=== PATIENT | female | born 1970 | race African-American/Black ===

== ENCOUNTER → 2016-11-15 | Outpatient (CLI) | payer OTHER ==
[2016-11-15 12:21] LABS: BASO % 0.9 % (0.0-1.0); EOS # 0.2 K/mm3 (0.0-0.50); EOS % 3.6 % (0.0-3.0); LARGE UNSTAINED CELL # 0.2 K/mm3 (0.0-0.4); LARGE UNSTAINED CELL % 3.9 % (0.0-4.0); LYMPH # 2.5 K/mm3 (1.5-4.5); LYMPH % 49.9 % (24.0-44.0); MEAN CORPUSCULAR HEMOGLOBIN 30.1 pg (27.0-33.0); MEAN CORPUSCULAR HGB CONC 33.1 g/dl (32.0-36.5); MEAN CORPUSCULAR VOLUME 90.7 fl (80.0-96.0); MONO # 0.3 K/mm3 (0.0-0.8); NEUTROPHILS # 1.6 K/mm3 (1.8-7.7); NEUTROPHILS % 34.7 % (36.0-66.0); PLATELET COUNT, AUTOMATED 390 k/mm3 (150-450); RED CELL DISTRIBUTION WIDTH 12.4 % (11.5-14.5); WHITE BLOOD COUNT 4.6 K/mm3 (4.0-10.0)
[2016-11-15 12:31] LABS: ALBUMIN 3.4 GM/DL (3.2-5.2); ALBUMIN/GLOBULIN RATIO 0.94 (1.00-1.93); ALKALINE PHOSPHATASE 87 U/L (45-117); ALT/SGPT 20 U/L (12-78); ANION GAP 8 MEQ/L (8-16); AST/SGOT 20 U/L (15-37); BILIRUBIN,TOTAL 0.2 MG/DL (0.2-1.0); BLOOD UREA NITROGEN 8 MG/DL (7-18); CALCIUM LEVEL 8.7 MG/DL (8.5-10.1); CARBON DIOXIDE LEVEL 29 MEQ/L (21-32); CHLORIDE LEVEL 106 MEQ/L (98-107); CHOLESTEROL LEVEL 122 MG/DL (<200); CREATININE FOR GFR 0.86 MG/DL (0.55-1.02); FREE T4 1.11 NG/DL (0.76-1.46); GLOMERULAR FILTRATION RATE > 60.0 (>58); GLUCOSE, FASTING 88 MG/DL (70-105); POTASSIUM SERUM 3.4 MEQ/L (3.5-5.1); SODIUM LEVEL 143 MEQ/L (136-145); TRIGLYCERIDES LEVEL 65 MG/DL (<150)
== END ==
LOC: M LAB 11:10
PROVIDERS: ATTEND Physician Assistant
DX: I10 Essential (primary) hypertension (principal)

== ENCOUNTER 2016-12-25 22:08 | Emergency (ER) | payer OTHER ==
[~2016-12-25] VITALS: Ht 160 cm; Wt 78.0 kg
[2016-12-25] MEDS ORDERED: AMLO5TAB2 PO (22:20)
[2016-12-25] MEDS ORDERED: IBUPROFEN 600 MG TAB PO ONE (23:15)
[2016-12-25 23:39] VITALS: BP 136/82
== END 2016-12-25 23:42 | disposition home or self-care (01) ==
LOC: M ED 22:56
DX: J03.90 Acute tonsillitis, unspecified (principal)

== ENCOUNTER → 2017-02-14 | Outpatient (REF) | payer OTHER ==
[~2017-02-14] MED LIST: AMLO5TAB2 PO
== END ==
LOC: M LAB REF 17:20
PROVIDERS: ATTEND Family Medicine
DX: Z12.4 Encounter for screening for malignant neoplasm of cervix (principal)

== ENCOUNTER → 2017-07-05 | Outpatient (CLI) | payer OTHER ==
[2017-07-05 09:39] LABS: FOLLICLE STIMULATING HORMONE 10.1 mIU/mL; LUTEINIZING HORMONE 3.1 mIU/mL
== END ==
LOC: M LAB 07:03
PROVIDERS: ATTEND Physician Assistant Medical
DX: L65.9 Nonscarring hair loss, unspecified (principal)

== ENCOUNTER → 2017-07-22 | Outpatient (REF) | payer OTHER | LOC: M LAB REF 16:08 | PROVIDERS: ATTEND Family Medicine | DX: L65.9 Nonscarring hair loss, unspecified (principal) ==

== ENCOUNTER 2017-12-19 07:13 | Emergency (ER) | payer OTHER ==
[2017-12-19] MEDS: KETOROLAC 60 MG/2 ML VIAL (J1885) IM (08:59)
[2017-12-19 09:19] LABS: HEMATOCRIT 35.9 % (36.0-47.0); HEMOGLOBIN 11.8 g/dl (12.0-16.0); MEAN CORPUSCULAR HEMOGLOBIN 29.1 pg (27.0-33.0); MEAN CORPUSCULAR HGB CONC 32.9 g/dl (32.0-36.5); MEAN CORPUSCULAR VOLUME 88.6 fl (80.0-96.0); PLATELET COUNT, AUTOMATED 400 10^3/uL (150-450); RED BLOOD COUNT 4.05 10^6/uL (4.00-5.40); RED CELL DISTRIBUTION WIDTH 12.9 % (11.5-14.5); WHITE BLOOD COUNT 6.1 10^3/uL (4.0-10.0)
[2017-12-19 09:47] LABS: ANION GAP 8 MEQ/L (8-16); BLOOD UREA NITROGEN 7 MG/DL (7-18); C REACTIVE PROTEIN QUANTITATIV < 0.30 MG/DL (0.00-0.30); CALCIUM LEVEL 8.7 MG/DL (8.5-10.1); CARBON DIOXIDE LEVEL 27 MEQ/L (21-32); CHLORIDE LEVEL 107 MEQ/L (98-107); CREATININE FOR GFR 0.87 MG/DL (0.55-1.30); GLOMERULAR FILTRATION RATE > 60.0 (>58); GLUCOSE, FASTING 82 MG/DL (70-100); POTASSIUM SERUM 3.9 MEQ/L (3.5-5.1); SODIUM LEVEL 142 MEQ/L (136-145); URIC ACID 4.1 MG/DL (2.6-6.0)
[2017-12-19 09:56] LABS: ERYTHROCYTE SEDIMENTATION RATE 28 mm/hr (0-20)
== END 2017-12-19 10:19 | disposition home or self-care (01) ==
LOC: M ED 07:13
DX: M77.9 Enthesopathy, unspecified (principal); I10 Essential (primary) hypertension; Z79.899 Other long term (current) drug therapy
CPT/HCPCS: J1885

== ENCOUNTER → 2017-12-19 | Outpatient (CLI) | payer OTHER ==
[2017-12-19 10:22] LABS: TOTAL 25(OH) VITAMIN D 42.8 NG/ML (30.0-100.0)
[2017-12-21 14:29] LABS: FREE T4 1.02 NG/DL (0.76-1.46)
[2017-12-21 14:49] LABS: THYROID PEROXIDASE ANTIBODY < 28.0 U/ML (<60.0)
[2017-12-24 00:08] LABS: CYCLIC CITRULLINATED PEPTIDE 6 units (0-19)
[2017-12-24 00:08] LABS: ANTINUCLEAR ANTIBODIES DIRECT Negative (Negative)
== END ==
LOC: M LAB 06:57
DX: E55.9 Vitamin D deficiency, unspecified (principal); L63.0 Alopecia (capitis) totalis; M79.1 Myalgia; I10 Essential (primary) hypertension
CPT/HCPCS: 84443

== ENCOUNTER → 2018-06-26 | Outpatient (CLI) | payer OTHER ==
[2018-06-26 12:21] LABS: BASO % 0.8 % (0.0-1.0); EOS # 0.1 10^3/uL (0.0-0.50); EOS % 2.2 % (0.0-3.0); HEMATOCRIT 34.7 % (36.0-47.0); HEMOGLOBIN 11.5 g/dl (12.0-15.5); IMMATURE GRANULOCYTE % 0.2 % (0-3.0); LYMPH # 2.5 10^3/uL (1.5-4.5); LYMPH % 48.2 % (24.0-44.0); MEAN CORPUSCULAR HEMOGLOBIN 29.3 pg (27.0-33.0); MEAN CORPUSCULAR HGB CONC 33.1 g/dl (32.0-36.5); MEAN CORPUSCULAR VOLUME 88.3 fl (80.0-96.0); MONO # 0.5 10^3/uL (0.0-0.8); NEUTROPHILS % 39.6 % (36.0-66.0); PLATELET COUNT, AUTOMATED 361 10^3/uL (150-450); RED BLOOD COUNT 3.93 10^6/uL (4.00-5.40); RED CELL DISTRIBUTION WIDTH 12.9 % (11.5-14.5); WHITE BLOOD COUNT 5.1 10^3/uL (4.0-10.0)
[2018-06-26 13:16] LABS: ALBUMIN 3.4 GM/DL (3.2-5.2); ALBUMIN/GLOBULIN RATIO 0.89 (1.00-1.93); ALKALINE PHOSPHATASE 66 U/L (45-117); ALT/SGPT 19 U/L (12-78); ANION GAP 7 MEQ/L (8-16); AST/SGOT 20 U/L (7-37); BILIRUBIN,TOTAL 0.4 MG/DL (0.2-1.0); BLOOD UREA NITROGEN 9 MG/DL (7-18); CALCIUM LEVEL 8.2 MG/DL (8.5-10.1); CARBON DIOXIDE LEVEL 26 MEQ/L (21-32); CHLORIDE LEVEL 109 MEQ/L (98-107); CHOLESTEROL LEVEL 130 MG/DL (<200); CHOLESTEROL RISK RATIO 3.714 (<5); FREE T4 0.98 NG/DL (0.76-1.46); GLOMERULAR FILTRATION RATE > 60.0 (>58); GLUCOSE, FASTING 74 MG/DL (70-100); HDL CHOLESTEROL 35 MG/DL (>40); LDL CHOLESTEROL 85 MG/DL (<100); NON-HDL-C 95 MG/DL; POTASSIUM SERUM 4.1 MEQ/L (3.5-5.1); SODIUM LEVEL 142 MEQ/L (136-145); TOTAL PROTEIN 7.2 GM/DL (6.4-8.2); TRIGLYCERIDES LEVEL 49 MG/DL (<150)
[2018-06-26 13:32] LABS: TOTAL 25(OH) VITAMIN D 22.3 NG/ML (30.0-100.0)
== END ==
LOC: M LAB 11:19
DX: E55.9 Vitamin D deficiency, unspecified (principal)
CPT/HCPCS: 84443

== ENCOUNTER → 2018-06-28 | Outpatient (REF) | payer OTHER | LOC: M LAB REF 17:17 | DX: J02.9 Acute pharyngitis, unspecified (principal) ==

== ENCOUNTER → 2018-07-20 | Outpatient (CLI) | payer OTHER ==
[2018-07-20 17:29] LABS: BASO # 0.1 10^3/uL (0.0-0.2); EOS # 0.2 10^3/uL (0.0-0.50); EOS % 2.4 % (0.0-3.0); HEMATOCRIT 35.2 % (36.0-47.0); HEMOGLOBIN 11.6 g/dl (12.0-15.5); IMMATURE GRANULOCYTE % 0.2 % (0-3.0); LYMPH # 3.1 10^3/uL (1.5-4.5); MEAN CORPUSCULAR HEMOGLOBIN 29.3 pg (27.0-33.0); MEAN CORPUSCULAR VOLUME 88.9 fl (80.0-96.0); MONO # 0.6 10^3/uL (0.0-0.8); NEUTROPHILS # 2.4 10^3/uL (1.8-7.7); NEUTROPHILS % 38.4 % (36.0-66.0); PLATELET COUNT, AUTOMATED 380 10^3/uL (150-450); RED BLOOD COUNT 3.96 10^6/uL (4.00-5.40); WHITE BLOOD COUNT 6.2 10^3/uL (4.0-10.0)
[2018-07-20 17:48] LABS: ANION GAP 7 MEQ/L (8-16); BLOOD UREA NITROGEN 12 MG/DL (7-18); CALCIUM LEVEL 8.8 MG/DL (8.5-10.1); CARBON DIOXIDE LEVEL 28 MEQ/L (21-32); CHLORIDE LEVEL 106 MEQ/L (98-107); CREATININE FOR GFR 0.82 MG/DL (0.55-1.30); GLOMERULAR FILTRATION RATE > 60.0 (>58); GLUCOSE, FASTING 74 MG/DL (70-100); POTASSIUM SERUM 4.4 MEQ/L (3.5-5.1); SODIUM LEVEL 141 MEQ/L (136-145)
== END ==
LOC: M LAB 16:25
DX: Z01.818 Encounter for other preprocedural examination (principal)
CPT/HCPCS: 93005

== ENCOUNTER 2018-07-28 05:57 | Day surgery (SDC) | payer OTHER ==
[2018-07-28 06:41] LABS: CONTROL LINE HCG INT CTR LINE PRESENT; HCG, SERUM QUALITATIVE NEGATIVE (NEGATIVE)
[2018-07-28] MEDS: LR 1,000 ML IV (07:00)
[2018-07-28] MEDS: ROPIvacaine 0.5% 30 ML INJECTION (J2795 PER 1MG) As Ordered (07:11)
[2018-07-28] MEDS: BUPIVACAINE HCL 0.5% 10 ML VIAL As Ordered (07:11)
[2018-07-28] MEDS: NEOSPORIN TOP OINT 15GM As Ordered (07:11)
[2018-07-28] MEDS: LIDOCAINE 2% MDV 20 ML VIAL As Ordered (07:39)
[2018-07-28] MEDS: BUPIVACAINE HCL 0.5% 30 ML VIAL As Ordered (07:39)
[2018-07-28] MEDS ORDERED: KETOROLAC 60 MG/2 ML VIAL (J1885) As Ordered (07:42)
[2018-07-28] MEDS ORDERED: PROPOFOL 200 MG/20 ML VIAL As Ordered (07:42)
[2018-07-28] MEDS ORDERED: fentaNYL 100 MCG/2 ML INJECTION (J3010) As Ordered (07:42)
[2018-07-28] MEDS ORDERED: LIDOCAINE 2% INJ 100 MG/5 ML SDV (FOR ANES.) As Ordered (07:42)
[2018-07-28] MEDS ORDERED: MIDAZOLAM INJ 2 MG/2 ML VIAL (J2250) As Ordered (07:42)
[2018-07-28] MEDS ORDERED: ONDANSETRON 4MG/2ML VIAL (J2405) As Ordered (07:42)
[2018-07-28] MEDS: BACITRACIN PWD 50,000 UNITS VIAL As Ordered (08:41)
[2018-07-28] MEDS: dexameTHASONE 4 MG/ML 1ML VIAL (J1100) As Ordered (08:42)
[2018-07-28] MEDS: NEOSPORIN GU IRRIG 20 ML VIAL As Ordered (08:42)
[2018-07-28 08:49] LABS: SICKLE CELL SCREEN NEGATIVE (NEGATIVE)
[2018-07-28] MEDS: PERCOCET 5MG/325MG TAB PO (09:15)
[2018-07-28] MEDS ORDERED: METOCLOPRAMIDE INJ 10MG/2ML VIAL (J2765) As Ordered (10:50)
[2018-07-28] MEDS: METOCLOPRAMIDE INJ 10MG/2ML VIAL (J2765) IV (10:54)
== END 2018-07-28 12:45 | disposition home or self-care (01) ==
LOC: M SDC 05:57
DX: M20.22 Hallux rigidus, left foot (principal); M25.775 Osteophyte, left foot; I10 Essential (primary) hypertension; Z79.899 Other long term (current) drug therapy; D64.9 Anemia, unspecified
CPT/HCPCS: 28296

== ENCOUNTER → 2018-12-29 | Outpatient (CLI) | payer OTHER ==
[~2018-12-29] MED LIST changes: -AMLO5TAB2 PO; +AMLO5TAB6 PO; +NAPR-50 PO
[2018-12-29 13:22] LABS: BLOOD UREA NITROGEN 12 MG/DL (7-18); CALCIUM LEVEL 8.7 MG/DL (8.5-10.1); CARBON DIOXIDE LEVEL 29 MEQ/L (21-32); CHLORIDE LEVEL 106 MEQ/L (98-107); CREATININE FOR GFR 0.76 MG/DL (0.55-1.30); FERRITIN 26 NG/ML (8-252); GLOMERULAR FILTRATION RATE > 60.0 (>58); GLUCOSE, FASTING 78 MG/DL (70-100); POTASSIUM SERUM 4.5 MEQ/L (3.5-5.1); SODIUM LEVEL 140 MEQ/L (136-145)
[2018-12-29 13:30] LABS: TOTAL 25(OH) VITAMIN D 45.5 NG/ML (30.0-100.0)
== END ==
LOC: M LAB 11:10
PROVIDERS: ATTEND Family Medicine
DX: E55.9 Vitamin D deficiency, unspecified (principal)

== ENCOUNTER → 2019-03-13 | Outpatient (CLI) | payer OTHER ==
[~2019-03-13] MED LIST changes: -NAPR-50 PO; +NAPR-837 PO
[2019-03-13 16:24] LABS: BASO # 0.1 10^3/uL (0.0-0.2); EOS # 0.2 10^3/uL (0.0-0.50); EOS % 3.2 % (0.0-3.0); HEMATOCRIT 36.6 % (36.0-47.0); HEMOGLOBIN 11.7 g/dl (12.0-15.5); LYMPH # 2.4 10^3/uL (1.5-4.5); LYMPH % 40.5 % (24.0-44.0); MEAN CORPUSCULAR HEMOGLOBIN 28.5 pg (27.0-33.0); MEAN CORPUSCULAR VOLUME 89.3 fl (80.0-96.0); MONO # 0.7 10^3/uL (0.0-0.8); MONO % 12.1 % (0.0-5.0); NEUTROPHILS # 2.5 10^3/uL (1.8-7.7); PLATELET COUNT, AUTOMATED 372 10^3/uL (150-450); WHITE BLOOD COUNT 5.9 10^3/uL (4.0-10.0)
== END ==
LOC: M LAB 15:25
PROVIDERS: ATTEND Physician Assistant
DX: Z00.00 Encounter for general adult medical examination without abnormal findings (principal)

== ENCOUNTER 2019-04-02 13:36 | Emergency (ER) | payer OTHER ==
[~2019-04-02] VITALS: Ht 160 cm; Wt 84.6 kg
[2019-04-02] MEDS ORDERED: AMLO10TA5 (13:44)
--- NOTE | 2019-04-02 15:54 | REP ---
LEFT LOWER LEG, AP AND LATERAL: There is no evidence of an acute fracture, dislocation or intrinsic bone disease. IMPRESSION: No fracture or dislocation. Electronically Signed by Hardik Harrison MD 04/03/2019 10:05 A
--- NOTE | 2019-04-02 15:59 | REP ---
LEFT FOOT, FOUR VIEWS: Four views of the left foot performed. No acute fracture or dislocation is seen. Tiny calcification is seen in the distal Achilles tendon. There is evidence of prior surgery of the first metatarsal distal aspect with surgical defect fixed by a metallic screw at that location. There is mild narrowing of the first metatarsal phalangeal joint, as well as the interphalangea joints diffusely. IMPRESSION: No acute fracture or dislocation. Electronically Signed by Hardik Harrison MD 04/03/2019 10:06 A
[2019-04-02] MEDS ORDERED: ACETAMINOPHEN TAB 650MG DOSE (2X325MG) PO ONE (17:45)
[2019-04-02 17:46] VITALS: BP 167/93
== END 2019-04-02 17:57 | disposition home or self-care (01) ==
LOC: M ED 13:36
DX: M79.605 Pain in left leg (principal); I10 Essential (primary) hypertension

== ENCOUNTER → 2019-06-15 | Outpatient (CLI) | payer OTHER ==
[~2019-06-15] MED LIST changes: +AMLO10TA5; +HYDR25TAB
[2019-06-15 12:54] LABS: BASO # 0.1 10^3/uL (0.0-0.2); BASO % 0.8 % (0.0-1.0); EOS # 0.1 10^3/uL (0.0-0.5); EOS % 1.9 % (0.0-3.0); HEMATOCRIT 36.3 % (36.0-47.0); HEMOGLOBIN 11.7 g/dl (12.0-15.5); LYMPH # 2.9 10^3/uL (1.5-5.0); LYMPH % 45.3 % (24.0-44.0); MEAN CORPUSCULAR HEMOGLOBIN 28.9 pg (27.0-33.0); MEAN CORPUSCULAR HGB CONC 32.2 g/dl (32.0-36.5); MEAN CORPUSCULAR VOLUME 89.6 fl (80.0-96.0); MONO # 0.7 10^3/uL (0.0-0.8); MONO % 11.5 % (0.0-5.0); NEUTROPHILS # 2.6 10^3/uL (1.5-8.5); NEUTROPHILS % 40.3 % (36.0-66.0); PLATELET COUNT, AUTOMATED 424 10^3/uL (150-450); RED BLOOD COUNT 4.05 10^6/uL (4.00-5.40); WHITE BLOOD COUNT 6.3 10^3/uL (4.0-10.0)
[2019-06-15 13:24] LABS: ALBUMIN 3.6 GM/DL (3.2-5.2); ALT/SGPT 17 U/L (12-78); BILIRUBIN,TOTAL 0.4 MG/DL (0.2-1.0); BLOOD UREA NITROGEN 7 MG/DL (7-18); CALCIUM LEVEL 9.4 MG/DL (8.5-10.1); CARBON DIOXIDE LEVEL 27 MEQ/L (21-32); CHLORIDE LEVEL 105 MEQ/L (98-107); CREATININE FOR GFR 0.81 MG/DL (0.55-1.30); FERRITIN 21 NG/ML (8-252); GLOMERULAR FILTRATION RATE > 60.0 (>58); GLUCOSE, FASTING 75 MG/DL (70-100); IRON (FE) 99 UG/DL (50-170); PERCENT SATURATION 22.2 % (13.2-45.0); POTASSIUM SERUM 4.4 MEQ/L (3.5-5.1); SODIUM LEVEL 140 MEQ/L (136-145); TOTAL IRON BINDING CAPACITY 445 UG/DL (250-450); TOTAL PROTEIN 7.3 GM/DL (6.4-8.2)
== END ==
LOC: M LAB 11:01
PROVIDERS: ATTEND Family Medicine
DX: D64.9 Anemia, unspecified (principal)

== ENCOUNTER 2019-06-25 06:11 | Day surgery (SDC) | payer OTHER ==
[2019-06-25] VITALS (8 sets, daily range): BP systolic 92–112; BP diastolic 52–62
[~2019-06-25] VITALS: Ht 160 cm; Wt 81.7 kg
[~2019-06-25 06:11] MED LIST changes: -HYDR25TAB; +LIDOCAINE 1% MDV 20ML VIAL SQ PRN; +LR 1,000 ML IV ONE; +ceFAZolin SOD 2 GM in IV 1 EA IV ONE
[2019-06-25 06:38] LABS: HEMATOCRIT 35.7 % (36.0-47.0); HEMOGLOBIN 11.8 g/dl (12.0-15.5); MEAN CORPUSCULAR HEMOGLOBIN 29.9 pg (27.0-33.0); MEAN CORPUSCULAR HGB CONC 33.1 g/dl (32.0-36.5); MEAN CORPUSCULAR VOLUME 90.4 fl (80.0-96.0); PLATELET COUNT, AUTOMATED 373 10^3/uL (150-450); RED BLOOD COUNT 3.95 10^6/uL (4.00-5.40)
[2019-06-25] MEDS ORDERED: ONDANSETRON 4MG/2ML VIAL (J2405) As Ordered ONE ×2 (07:04→11:14)
[2019-06-25] MEDS ORDERED: ROCURONIUM BROMIDE 50 MG/5 ML VIAL As Ordered ONE ×2 (07:04→07:56)
[2019-06-25] MEDS ORDERED: dexameTHASONE 4 MG/ML 1ML VIAL (J1100) As Ordered ONE (07:04)
[2019-06-25] MEDS ORDERED: BUPIVACAINE HCL 0.25% 10 ML VIAL As Ordered ONE ×2 (07:04→08:08)
[2019-06-25] MEDS ORDERED: LIDOCAINE 2% INJ 100 MG/5 ML SDV (FOR ANES.) As Ordered ONE (07:04)
[2019-06-25] MEDS ORDERED: PROPOFOL 200 MG/20 ML VIAL As Ordered ONE (07:04)
[2019-06-25 07:05] LABS: URINE PREG TEST NEGATIVE (NEGATIVE)
[2019-06-25] MEDS ORDERED: LACRILUBE (AKWA TEARS) OPHTH OINT 3.5 GM As Ordered ONE (07:05)
[2019-06-25] MEDS ORDERED: ACETAMINOPHEN 1000MG 100ML IV BTL (OFIRMEV) (J0131 PER 10MG) As Ordered ONE (07:05)
[2019-06-25] MEDS ORDERED: METHYLENE BLUE 0.5% (5MG/ML) 10 ML AMP (PROVAYBLUE)(Q9968 PER 1MG) As Ordered ONE (07:05)
[2019-06-25] MEDS ORDERED: KETOROLAC 60 MG/2 ML VIAL (J1885) As Ordered ONE (07:08)
[2019-06-25] MEDS ORDERED: MIDAZOLAM INJ 2 MG/2 ML VIAL (J2250) As Ordered ONE (07:10)
[2019-06-25] MEDS ORDERED: fentaNYL 250 MCG/5 ML INJECTION (J3010) As Ordered ONE (07:10)
[2019-06-25] MEDS ORDERED: SUGAMMADEX SODIUM 500 MG/5 ML VIAL (BRIDION) As Ordered ONE (07:56)
[2019-06-25] MEDS ORDERED: GLYCOPYRROLATE INJ 0.2 MG/ML 2 ML VIAL As Ordered ONE (08:28)
[2019-06-25] MEDS ORDERED: ONDANSETRON 4MG/2ML VIAL (J2405) IV PRN ×2 (10:30→11:31)
[2019-06-25] MEDS ORDERED: METOCLOPRAMIDE INJ 10MG/2ML VIAL (J2765) IV PRN (10:30)
[2019-06-25] MEDS ORDERED: LR 1,000 ML IV SCH (10:30)
[2019-06-25] MEDS ORDERED: PROMETHAZINE INJ 25 MG/ML VIAL (J2550) IV PRN ×2 (10:30→19:45)
[2019-06-25] MEDS ORDERED: oxyCODONE 5MG TAB PO PRN (10:30)
--- NOTE | 2019-06-25 10:31 | RO ---
DATE OF PROCEDURE: 06/25/2019 PREOPERATIVE DIAGNOSIS: Large symptomatic fibroid uterus. POSTOPERATIVE DIAGNOSIS: Large symptomatic fibroid uterus. PROCEDURE: Robotic-assisted laparoscopy hysterectomy, bilateral salpingectomy, cystoscopy. SURGEON: Dr. Castillo Mondragon MANAGER MARKETING COMMUNICATIONS: Yue Celaya NP ANESTHESIA: General endotracheal. ESTIMATED BLOOD LOSS: 100 mL. URINE OUTPUT: 100 mL. FINDINGS: Large and irregular uterus, multiple fibroids, normal fallopian tubes and ovaries. Normal upper abdomen. OPERATIVE SUMMARY: The patient was taken to the operating room where general endotracheal anesthesia was induced. She was prepped and draped in sterile fashion in the dorsal lithotomy position. A Ortiz catheter was placed. A VCare uterine manipulator was placed. A periumbilical incision made with a scalpel. A Veress needle was placed through this incision while tenting up on the skin of the abdomen. Intra-abdominal location of the Veress needle was assessed using a saline filled syringe. A pneumoperitoneum was created. The Veress needle was removed. An 8 mm trocar using Lio Social was inserted through this incision. Three 8 mm suprapubic ports were placed under direct visualization. The patient was placed in Trendelenburg position. The da Neeraj surgical robot was docked to the ports. Using the fenestrated bipolar instrument and the vessel sealer the broad ligament attachments to the fallopian tubes were coagulated and incised. The utero-ovarian ligaments and round ligaments were coagulated and incised. The anterior and posterior leaves of the broad ligaments were . A bladder flap was created. The uterine vessels were skeletonized and incised. Using monopolar Endoshers, a colpotomy was created at the level of the VCare at the upper vagina. The upper vagina was circumscribed and specimen including the uterus and cervix was large and could not be removed without additional procedures. An Endy Endo Catch bag was used to bag the specimen which was then brought to the vaginal opening. The specimen was morcellated at the vagina and removed in multiple pieces. The vaginal cuff was closed with #1 V-Loc suture in a running fashion. The pelvis was irrigated. Good hemostasis was noted. Cystoscopy was performed using a 70 degrees cystoscope. Bilateral ureteral jets were identified. There was no evidence of injury to the bladder. All instruments were removed. The skin was closed with #4-0 Monocryl subcuticular sutures. Yue Celaya NP, assisted throughout the procedure. She helped position the patient, insert the ports, and she manipulated the uterus throughout the procedure and helped remove the specimen. She subsequently helped close the ports and move the patient.
[2019-06-25] MEDS ORDERED: oxyCODONE 5MG TAB As Ordered ONE (10:56)
[2019-06-25] MEDS ORDERED: fentaNYL 100 MCG/2 ML INJECTION (J3010) As Ordered ONE (10:56)
[2019-06-25] MEDS: fentaNYL 100 MCG/2 ML INJECTION (J3010) IV PRN ×2 (11:00→11:05)
[2019-06-25] MEDS ORDERED: PERCOCET 5MG/325MG TAB PO PRN ×2 (11:31)
[2019-06-25] MEDS ORDERED: MORPHINE 4 MG/ML 1ML VIAL/SYRINGE (J2270) IV PRN (11:31)
[2019-06-25] MEDS: LR 1,000 ML IV SCH ×2 (12:00→16:36)
[2019-06-25] MEDS: DOCUSATE SODIUM 100 MG CAP PO SCH ×2 (13:00→20:13)
[2019-06-25] MEDS ORDERED: HYDR25TAB (17:14)
[2019-06-26] VITALS: BP 101/60
[2019-06-26] MEDS: LR 1,000 ML IV SCH (01:12)
[2019-06-26 04:00] VITALS: BP 106/57
[2019-06-26] MEDS ORDERED: OXYC1TAB23 PO (07:38)
[2019-06-26] MEDS ORDERED: IBUP-1022 PO (07:41)
[2019-06-26 08:00] VITALS: BP 109/59
[2019-06-26] MEDS: DOCUSATE SODIUM 100 MG CAP PO SCH (08:25)
== END 2019-06-26 11:01 | disposition home or self-care (01) ==
LOC: M SDC 06:11 → M PED 11:35 → M SDC 06-26 11:01
PROVIDERS: ATTEND Specialist
DX: D25.9 Leiomyoma of uterus, unspecified (principal); N72 Inflammatory disease of cervix uteri; N92.0 Excessive and frequent menstruation with regular cycle; I10 Essential (primary) hypertension; L63.9 Alopecia areata, unspecified; D64.9 Anemia, unspecified; R06.83 Snoring; G47.33 Obstructive sleep apnea (adult) (pediatric); Z79.899 Other long term (current) drug therapy
CPT/HCPCS: 36415; 58573; 84703; 85027; 86850; 86900; 86901; 88307; 96374; 96375; 96376; J0131; J0690; J1100; J1885; J2250; J2405; J3010

== ENCOUNTER → 2019-11-28 | Outpatient (REF) | payer OTHER ==
[~2019-11-28] MED LIST changes: +HYDR25TAB; +IBUP-1022 PO; -LIDOCAINE 1% MDV 20ML VIAL SQ PRN; -LR 1,000 ML IV ONE; +OXYC1TAB23 PO; -ceFAZolin SOD 2 GM in IV 1 EA IV ONE
== END ==
LOC: M SFHCLERA 17:44
PROVIDERS: ATTEND Nurse Practitioner Family
DX: R68.89 Other general symptoms and signs (principal)

== ENCOUNTER 2019-12-10 10:52 | Emergency (ER) | payer OTHER ==
[~2019-12-10] VITALS: Ht 162.6 cm; Wt 79.6 kg
[2019-12-10 10:53] VITALS: BP 129/78
[2019-12-10] MEDS ORDERED: CYCL10TA PO (11:36)
[2019-12-10] MEDS ORDERED: MEDR4PAK PO (11:36)
== END 2019-12-10 11:43 | disposition home or self-care (01) ==
LOC: M ED 10:52
DX: M54.41 Lumbago with sciatica, right side (principal); S39.012A Strain of muscle, fascia and tendon of lower back, initial encounter; X58.XXXA Exposure to other specified factors, initial encounter; Y92.099 Unspecified place in other non-institutional residence as the place of occurrence of the external cause; Y93.89 Activity, other specified; Y99.9 Unspecified external cause status; I10 Essential (primary) hypertension; Z79.899 Other long term (current) drug therapy; Z91.040 Latex allergy status

== ENCOUNTER → 2020-01-11 | Outpatient (CLI) | payer OTHER ==
[~2020-01-11] MED LIST changes: +CYCL-707 PO; +MEDR4PAK PO
[2020-01-11 07:54] LABS: BASO # 0.1 10^3/uL (0.0-0.2); BASO % 1.5 % (0.0-1.0); EOS # 0.2 10^3/uL (0.0-0.5); EOS % 3.6 % (0.0-3.0); HEMATOCRIT 37.4 % (36.0-47.0); HEMOGLOBIN 12.3 g/dl (12.0-15.5); LYMPH # 2.3 10^3/uL (1.5-5.0); LYMPH % 49.4 % (24.0-44.0); MEAN CORPUSCULAR HEMOGLOBIN 30.1 pg (27.0-33.0); MEAN CORPUSCULAR HGB CONC 32.9 g/dl (32.0-36.5); MEAN CORPUSCULAR VOLUME 91.4 fl (80.0-96.0); MONO # 0.4 10^3/uL (0.0-0.8); MONO % 8.6 % (0.0-5.0); NEUTROPHILS # 1.7 10^3/uL (1.5-8.5); NEUTROPHILS % 36.7 % (36.0-66.0); PLATELET COUNT, AUTOMATED 456 10^3/uL (150-450); RED BLOOD COUNT 4.09 10^6/uL (4.00-5.40); WHITE BLOOD COUNT 4.7 10^3/uL (4.0-10.0)
[2020-01-11 08:20] LABS: ALBUMIN 3.5 GM/DL (3.2-5.2); ALT/SGPT 17 U/L (12-78); BILIRUBIN,TOTAL 0.4 MG/DL (0.2-1.0); BLOOD UREA NITROGEN 12 MG/DL (7-18); CALCIUM LEVEL 8.9 MG/DL (8.5-10.1); CARBON DIOXIDE LEVEL 28 MEQ/L (21-32); CHLORIDE LEVEL 106 MEQ/L (98-107); CHOLESTEROL LEVEL 146 MG/DL (<200); CHOLESTEROL RISK RATIO 4.055 (<5); CREATININE FOR GFR 0.86 MG/DL (0.55-1.30); FERRITIN 46 NG/ML (8-252); GLOMERULAR FILTRATION RATE > 60.0 (>58); GLUCOSE, FASTING 98 MG/DL (70-100); HDL CHOLESTEROL 36 MG/DL (>40); IRON (FE) 48 UG/DL (50-170); LDL CHOLESTEROL 102 MG/DL (<100); NON-HDL-C 110 MG/DL; PERCENT SATURATION 10.9 % (13.2-45.0); POTASSIUM SERUM 4.2 MEQ/L (3.5-5.1); SODIUM LEVEL 141 MEQ/L (136-145); TOTAL IRON BINDING CAPACITY 439 UG/DL (250-450); TOTAL PROTEIN 7.8 GM/DL (6.4-8.2); TRIGLYCERIDES LEVEL 42 MG/DL (<150)
[2020-01-11 08:29] LABS: TOTAL 25(OH) VITAMIN D 28.5 NG/ML (30.0-100.0)
== END ==
LOC: M LAB 07:24
PROVIDERS: ATTEND Family Medicine
DX: I10 Essential (primary) hypertension (principal)

== ENCOUNTER → 2020-07-16 | Outpatient (CLI) | payer OTHER ==
[~2020-07-16] MED LIST changes: -AMLO10TA5; +AMLO1TAB24 PO; +AMLO1TAB25; -AMLO5TAB6 PO
[2020-07-16 16:13] LABS: BASO # 0.1 10^3/uL (0.0-0.2); BASO % 0.7 % (0.0-1.0); EOS # 0.2 10^3/uL (0.0-0.5); EOS % 3.3 % (0.0-3.0); HEMATOCRIT 38.4 % (36.0-47.0); HEMOGLOBIN 12.4 g/dl (12.0-15.5); LYMPH % 41.3 % (24.0-44.0); MEAN CORPUSCULAR HGB CONC 32.3 g/dl (32.0-36.5); MEAN CORPUSCULAR VOLUME 89.7 fl (80.0-96.0); MONO # 0.6 10^3/uL (0.0-0.8); MONO % 8.5 % (0.0-5.0); NEUTROPHILS # 3.4 10^3/uL (1.5-8.5); NEUTROPHILS % 45.9 % (36.0-66.0); PLATELET COUNT, AUTOMATED 376 10^3/uL (150-450); RED BLOOD COUNT 4.28 10^6/uL (4.00-5.40); WHITE BLOOD COUNT 7.3 10^3/uL (4.0-10.0)
[2020-07-16 16:28] LABS: ALBUMIN 3.7 GM/DL (3.2-5.2); ALT/SGPT 25 U/L (12-78); BILIRUBIN,TOTAL 0.6 MG/DL (0.2-1.0); BLOOD UREA NITROGEN 13 MG/DL (7-18); CALCIUM LEVEL 9.9 MG/DL (8.5-10.1); CARBON DIOXIDE LEVEL 31 MEQ/L (21-32); CHLORIDE LEVEL 101 MEQ/L (98-107); CHOLESTEROL LEVEL 171 MG/DL (<200); CHOLESTEROL RISK RATIO 3.886 (<5); CREATININE FOR GFR 0.86 MG/DL (0.55-1.30); GLOMERULAR FILTRATION RATE > 60.0 (>51); GLUCOSE, FASTING 81 MG/DL (70-100); HDL CHOLESTEROL 44 MG/DL (>40); LDL CHOLESTEROL 113 MG/DL (<100); NON-HDL-C 127 MG/DL; POTASSIUM SERUM 3.7 MEQ/L (3.5-5.1); SODIUM LEVEL 136 MEQ/L (136-145); TOTAL PROTEIN 7.8 GM/DL (6.4-8.2); TRIGLYCERIDES LEVEL 71 MG/DL (<150)
== END ==
LOC: M LAB 15:00
PROVIDERS: ATTEND Physician Assistant
DX: D64.9 Anemia, unspecified (principal); I10 Essential (primary) hypertension

== ENCOUNTER → 2020-09-18 | Outpatient (REF) | payer OTHER | LOC: M LAB REF 15:02 | PROVIDERS: ATTEND Physician Assistant | DX: Z11.59 Encounter for screening for other viral diseases (principal) ==

== ENCOUNTER → 2020-10-21 | Outpatient (CLI) | payer OTHER ==
[~2020-10-21] MED LIST changes: -AMLO1TAB25; +AMLO1TAB25 PO; +HYDR-3490 PO; -HYDR25TAB; +IRON27TA2 PO
[2020-10-21 07:38] LABS: BLOOD UREA NITROGEN 11 MG/DL (7-18); CALCIUM LEVEL 9.2 MG/DL (8.5-10.1); CARBON DIOXIDE LEVEL 32 MEQ/L (21-32); CHLORIDE LEVEL 104 MEQ/L (98-107); GLOMERULAR FILTRATION RATE > 60.0 (>51); GLUCOSE, FASTING 98 MG/DL (70-100); SODIUM LEVEL 139 MEQ/L (136-145)
[2020-10-21 13:13] LABS: TOTAL 25(OH) VITAMIN D 25.3 NG/ML (30.0-100.0)
== END ==
LOC: M LAB 06:36
PROVIDERS: ATTEND Physician Assistant
DX: E55.9 Vitamin D deficiency, unspecified (principal); I10 Essential (primary) hypertension

== ENCOUNTER → 2020-11-01 | Outpatient (CLI) | payer OTHER | LOC: M LABSMTC 09:49 | PROVIDERS: ATTEND Anesthesiology | DX: Z01.812 Encounter for preprocedural laboratory examination (principal); Z20.822 Contact with and (suspected) exposure to COVID-19 ==

== ENCOUNTER 2020-11-06 07:45 | Day surgery (SDC) | payer OTHER ==
[~2020-11-06] VITALS: Ht 160 cm; Wt 88.0 kg
[~2020-11-06 07:45] MED LIST changes: +LIDOCAINE 2% 100MG/5ML SDV (FOR ANES.) As Ordered ONE; +NS 1,000 ML IV ONE; +propofoL 200 MG/20 ML VIAL As Ordered ONE
--- OUTSIDE RECORDS SUMMARY | 2020-11-06 07:49 | CCD | Continuity of Care Document ---
Author Author Rut SAUCEDA MD Organization Unknown Address [address] [address] Phone [phone] Care Team Providers Care Dipper Operator Name Role Phone Jg Morales AUTM [phone] Adilia Kaur D.O. AUTM AUTM Unavailable Jg Morales AUTM [phone] Problems Active Problems Provider Date Essential hypertension Ester Huertas DO Onset: 01/25/2019 Social History Type Date Description Comments Sex Unknown ETOH Use 1-2 A Month Recreational Drug Use Denies Drug Use Tobacco Use Start: Unknown Denies Smoking Exercise Type/Frequency Does not exercise Allergies, Adverse Reactions, Alerts Active Allergies Reaction Severity Comments Date Latex Itching, rash 01/24/2019 Medications Active Medications SIG Qnty Indications Ordering Provide r Date Amlodipine Besylate 10mg Tablets 1 qd Unknown Hydrochlorothiazide 25mg Tablets one daily Unknown Iron (Ferrous Sulfate) 142(45Fe) mg Tablets ER 1 tab by mouth once a day . Unknown Immunizations Description No Information Available Vital Signs Date Vital Result Comment 10/13/2020 8:29am BP Systolic 135 mmHg BP Diastolic 87 mmHg Heart Rate 73 /min Body Temperature 98.1 F Height 63.5 inches 5'3.50" Weight 193.00 lb BMI (Body Mass Index) 33.6 kg/m2 [place] Body Weight 115 lb Weight 87.545 kg BSA (Body Surface Area) 1.92 m2 02/13/2020 2:51pm BP Systolic 134 mmHg BP Diastolic 82 mmHg Height 63.5 inches 5'3.50" Weight 184.25 lb BMI (Body Mass Index) 32.1 kg/m2 [place] Body Weight 115 lb Weight 83.576 kg BSA (Body Surface Area) 1.88 m2 Results Description No Information Available Procedures Description No Information Available Medical Devices Description No Information Available Encounters Description No Information Available Assessments Description No Information Available Plan of Treatment 02/13/2020 - Ester Huertas DO* 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 * Z48.89 Encounter for other specified surgical aftercare Functional Status Functional Condition Comment Date Status Independent with all ADL's Activ e Mental Status Description No Information Available Referrals Refer to Reason for Referral Status Appt Date Jaiden Sauceda JR, MD COLONOSCOPY Scheduled [address] [place] [phone]
--- OUTSIDE RECORDS SUMMARY | 2020-11-06 07:49 | CCD | Continuity of Care Document ---
Author Author Rut SHAFFER Organization Unknown Address [address] [facility] [address] [place] [address] Phone [phone] Care Team Providers Care Stock Blender Name Role Phone Adilia Kaur D.O. AUTM [phone] Jaiden Sauceda M.D. AUTM [phone] Problems Active Problems Provider Date Essential hypertension ART K[facility] Onset: 6 Alopecia [facility] Kaufman Onset: 09/17/2016 Vitamin D deficiency [facility]man Onset: 07/05/2018 Anemia [facility] Onset: 07/05/2018 Obstructive sleep apnea syndrome Adilia Kaur D.O. Onset: 10/02/2018 Social History Type Date Description Comments Sex Unknown ETOH Use Denies alcohol use Tobacco Use Start: Unknown Patient has never smoked Recreational Drug Use Denies Drug Use Smoking Status Reviewed: 07/22/20 Patient has never smoked Exercise Type/Frequency Does not exercise Sun Exposure Uses sunscreen Seat Belt/Car Seat Always uses seat belt Allergies, Adverse Reactions, Alerts Description No Known Drug Allergies Medications Active Medications SIG Qnty Indications Ordering Provide r Date Shingrix 50mcg/0.5ML Suspension Re c inject subcutaneous times one 1units Abhi Briceño 09/25/2020 Hydrochlorothiazide 25mg Tablets 1 by mouth every day 90tabs I10 Maxwell BriceñoOAlmita 06/18 Amlodipine Besylate 10mg Tablets 1 by mouth every day 90tabs I10 Adilia Kaur D.O. 03/14 Iron (Ferrous Sulfate) 325(65Fe) mg Tablets Unknown Medications Administered in Office Medication SIG Qnty Indications Ordering Provider Date Immunization Administration Single Or Co mbination Injection [facility] Injection Methylprednisolone Acetate 80 MG Injection [facility] 017 Injection Ceftriaxone Sodium Per 250 MG (Rocephin) Injection ART [facility] 12/29/2016 Therapeutic, Prophylactic Or Diagnostic Injection Subq/Im Injection ART [facility]air 12/29/2016 Immunizations CPT Code Status Date Vaccine Lot # [id number] Given 07/22/2020 Influenza Virus Vaccine, Quadrivalent, Split, Preservative Free [id number] Given 06/18/2019 Influenza Virus Vaccine, Quadrivalent, Split, Preservative Free [id number] Vital Signs Date Vital Result Comment 07/22/2020 2:57pm BP Systolic 120 mmHg BP Diastolic 80 mmHg Height 63.7 inches 5'3.70" Weight 185.50 lb BMI (Body Mass Index) 32.1 kg/m2 Heart Rate 60 /min Respiratory Rate 16 /min Body Temperature 97.6 F O2 % BldC Oximetry 100 % [place] Body Weight 115 lb 04/21/2020 2:54pm BP Systolic 124 mmHg BP Diastolic 82 mmHg Height 63.7 inches 5'3.70" Weight 182.00 lb BMI (Body Mass Index) 31.5 kg/m2 Respiratory Rate 18 /min Body Temperature 98.6 F O2 % BldC Oximetry 99 % [place] Body Weight 115 lb Results Test Acquired Date Facility Test Result H/L Range Note Basic Metabolic Profile 10/21/2020 [facility] Outpatient T willard (Registration) [address] [place] [address] [phone] Glucose, Fasting 98 mg/dL Normal 70-100 Blood Urea Nitrogen 11 mg/dL Normal 7-18 Creatinine For GFR 0.90 mg/dL Normal 0.55-1.30 Glomerular Filtration Rate > 60.0 Normal >51 1 Sodium Level 139 mEq/L Normal 136-145 Potassium Serum 4.0 mEq/L Normal 3.5-5.1 Chloride Level 104 mEq/L Normal 98-107 Carbon Dioxide Level 32 mEq/L Normal 21-32 Anion Gap 3 mEq/L Low 8-16 Calcium Level 9.2 mg/dL Normal 8.5-10.1 Laboratory test finding 10/21/2020 [facility] Outpatient T esting (Registration) [address] [place] [address] [phone] Total 25(Oh) Vitamin D 25.3 NG/ML Low 30.0-100. 0 CBC With Differential 07/16/2020 [facility] Outpatient Vanna ting (Registration) [address] [place] [address] [phone] White Blood Count 7.3 10 Normal 4.0-10.0 Red Blood Count 4.28 10 Normal 4.00-5.40 Hemoglobin 12.4 g/dL Normal 12.0-15.5 Hematocrit 38.4 % Normal 36.0-47.0 Mean Corpuscular Volume 89.7 fl Normal 80.0-96.0 Mean Corpuscular Hemoglobin 29.0 pg Normal 27.0-33.0 Mean Corpuscular HGB Conc 32.3 g/dL Normal 32.0-36.5 Red Cell Distribution Width 12.8 % Normal 11.5-14.5 Platelet Count, Automated 376 10 Normal 150-450 Neutrophils % 45.9 % Normal 36.0-66.0 Lymph % 41.3 % Normal 24.0-44.0 [place] % 8.5 % High 0.0-5.0 Eos % 3.3 % High 0.0-3.0 Baso % 0.7 % Normal 0.0-1.0 Immature Granulocyte % 0.3 % Normal 0-3.0 Nucleated Red Blood Cell % 0.0 % Normal 0-0 Neutrophils # 3.4 10 Normal 1.5-8.5 Lymph # 3.0 10 Normal 1.5-5.0 [place] # 0.6 10 Normal 0.0-0.8 Eos # 0.2 10 Normal 0.0-0.5 Baso # 0.1 10 Normal 0.0-0.2 Comprehensive Metabolic Profil 07/16/2020 [facility] Outpa tient Testing (Registration) [address] [place] [address] [phone] Glucose, Fasting 81 mg/dL Normal 70-100 Blood Urea Nitrogen 13 mg/dL Normal 7-18 Creatinine For GFR 0.86 mg/dL Normal 0.55-1.30 Glomerular Filtration Rate > 60.0 Normal >51 2 Sodium Level 136 mEq/L Normal 136-145 Potassium Serum 3.7 mEq/L Normal 3.5-5.1 Chloride Level 101 mEq/L Normal 98-107 Carbon Dioxide Level 31 mEq/L Normal 21-32 Anion Gap 4 mEq/L Low 8-16 Calcium Level 9.9 mg/dL Normal 8.5-10.1 Ast/Sgot 22 U/L Normal 7-37 Alt/SGPT 25 U/L Normal 12-78 Alkaline Phosphatase 73 U/L Normal 45-117 Bilirubin,Total 0.6 mg/dL Normal 0.2-1.0 Total Protein 7.8 GM/DL Normal 6.4-8.2 Albumin 3.7 GM/DL Normal 3.2-5.2 Albumin/Globulin Ratio 0.9 Low 1.2-2.2 Lipid Panel 07/16/2020 [facility] Outpatient Testi ng (Registration) [address] [place], [place] [id number] [phone] Triglycerides Level 71 mg/dL Normal <150 Cholesterol Level 171 mg/dL Normal <200 HDL Cholesterol 44 mg/dL Normal >40 LDL Cholesterol 113 mg/dL High <100 Non-HDL-C 127 mg/dL Normal Cholesterol Risk Ratio 3.886 Normal <5 FT4&TSH Panel 07/16/2020 [facility] Outpatient Testi ng (Registration) [address] [place], [place] [id number] [phone] Thyroid Stimulating Hormone 3.130 uIU/ML Normal 0. 358-3.740 Free T4 0.90 ng/dL Normal 0.76-1.46 1 Units are mL/min/1.73 m2 Chronic Kidney Disease Staging per NKF: Stage I & II GFR >=60 Normal to Mildly Decreased Stage III GFR 30-59 Moderately Decreased Stage IV GFR 15-29 Severely Decreased Stage V GFR <15 Very Little GFR Left ESRD GFR <15 on SOLID WASTE COLLECTOR 2 Units are mL/min/1.73 m2 Chronic Kidney Disease Staging per NKF: Stage I & II GFR >=60 Normal to Mildly Decreased Stage III GFR 30-59 Moderately Decreased Stage IV GFR 15-29 Severely Decreased Stage V GFR <15 Very Little GFR Left ESRD GFR <15 on SOLID WASTE COLLECTOR Procedures Description No Information Available Medical Devices Description No Information Available Encounters Type Date Location Provider Dx Diagnosis Office Visit 07/22/2020 3:00p [facility] ART Kaufman I10 Essential (primary) hyperten juliana E55.9 Vitamin D deficiency, unspec ified D64.9 Anemia, unspecified 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 Encounter for immunization Office Visit 04/21/2020 3:00p [facility] ART Kaufman I10 Essential (primary) hyperten juliana E55.9 Vitamin D deficiency, unspec ified D64.9 Anemia, unspecified Z12.11 Encounter for screening for malignant neoplasm of colon Z12.31 Encntr screen mammogram for malignant neoplasm of breast Assessments Date Code Description Provider 07/22/2020 I10 Essential hypertension ART Kaufman 07/22/2020 E55.9 Vitamin D deficiency, unspecifie d [facility] 07/22/2020 D64.9 Anemia, unspecified ART Brand 07/22/2020 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 ART [facility] 07/22/2020 Z23 Encounter for immunization ART [facility] 04/21/2020 I10 Essential hypertension ART Kaufman 04/21/2020 E55.9 Vitamin D deficiency, unspecifie d [facility] 04/21/2020 D64.9 Anemia, unspecified ART Brand 04/21/2020 Z12.11 Encounter for screening for eva gnant neoplasm of colon ART [facility] 04/21/2020 Z12.31 Encounter for screen ing mammogram for malignant neoplasm of breast ART [facility] Plan of Treatment Future Appointment(s):* 10/22/2020 3:00 pm - ART Kaufman at [facility] Functional Status Description No Information Available Mental Status Description No Information Available Referrals Refer to Dr Reason for Referral Status Appt Date Jaiden Sauceda M.D. 50 year old female in need o f initial screening colonoscopy. Asymptomatic, but with positive family history. Please eval and treat. Patient Notified 10/14/[address] [place] [address] [phone]
--- OUTSIDE RECORDS SUMMARY | 2020-11-06 07:49 | CCD ---
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 Name Role Phone Andrew, Jg PA Unavailable Unavailable Andrew, Jg PA Unavailable Unavailable Andrew, Jg PA Unavailable Unavailable Andrew, Jg PA Unavailable Unavailable Andrew, Jg PA Unavailable Unavailable Andrew, Jg PA Unavailable Unavailable Andrew, Jg PA Unavailable Unavailable Andrew, Jg PA Unavailable Unavailable Andrew, Jg PA Unavailable Unavailable Andrew, Jg PA Unavailable Unavailable Andrew, Jg PA Unavailable Unavailable Andrew, Jg PA Unavailable Unavailable Andrew, Jg PA Unavailable Unavailable Andrew, Jg PA Unavailable Unavailable Andrew, Jg PA Unavailable Unavailable Andrew, Jg PA Unavailable Unavailable Andrew, Jg PA Unavailable Unavailable Andrew, Jg PA Unavailable Unavailable Andrew, Jg PA Unavailable Unavailable Andrew, Jg PA Unavailable Unavailable Andrew, Jg PA Unavailable Unavailable Andrew, Jg PA Unavailable Unavailable Andrew, Jg PA Unavailable Unavailable Andrew, Jg PA Unavailable Unavailable Andrew, Jg PA Unavailable Unavailable Andrew, Jg PA Unavailable Unavailable Andrew, Jg PA Unavailable Unavailable Andrew, Jg PA Unavailable Unavailable Andrew, Jg PA Unavailable Unavailable Andrew, Jg PA Unavailable Unavailable Andrew, Jg PA Unavailable Unavailable Andrew, Jg PA Unavailable Unavailable Andrew, Jg PA Unavailable Unavailable Andrew, Jg PA Unavailable Unavailable Andrew, Jg PA Unavailable Unavailable Andrew, Jg PA Unavailable Unavailable Andrew, Jg PA Unavailable Unavailable Andrew, Jg PA Unavailable Unavailable Andrew, Jg PA Unavailable Unavailable Andrew, Jg PA Unavailable Unavailable Andrew, Jg PA Unavailable Unavailable Andrew, Jg PA Unavailable Unavailable Andrew, Jg PA Unavailable Unavailable Andrew, Jg PA Unavailable Unavailable Andrew, Jg PA Unavailable Unavailable Andrew, Jg PA Unavailable Unavailable Andrew, Jg PA Unavailable Unavailable Andrew, Jg PA Unavailable Unavailable Andrew, Jg PA Unavailable Unavailable JAROD-MERI, JESSIE DO Unavailable Unavailable JAROD-MERI, JESSIE DO Unavailable Unavailable JAROD-MERI, JESSIE DO Unavailable Unavailable JAROD-MERI, JESSIE DO Unavailable Unavailable JAROD-MERI, JESSIE DO Unavailable Unavailable JAROD-MERI, JESSIE DO Unavailable Unavailable JAROD-MERI, JESSIE DO Unavailable Unavailable JAROD-MERI, JESSIE DO Unavailable Unavailable JAROD-MERI, JESSIE DO Unavailable Unavailable JAROD-MERI, JESSIE DO Unavailable Unavailable JAROD-MERI, JESSIE DO Unavailable Unavailable JAROD-MERI, JESSIE DO Unavailable Unavailable JAROD-MERI, JESSIE DO Unavailable Unavailable JAROD-MERI, JESSIE DO Unavailable Unavailable JAROD-MERI, JESSIE DO Unavailable Unavailable JAROD-MERI, JESSIE DO Unavailable Unavailable JAROD-MERI, JESSIE DO Unavailable Unavailable JAROD-MERI, JESSIE DO Unavailable Unavailable JAROD-MERI, JESSIE DO Unavailable Unavailable JAROD-MERI, JESSIE DO Unavailable Unavailable JAROD-MERI, JESSIE DO Unavailable Unavailable JAROD-MERI, JESSIE DO Unavailable Unavailable JAROD-MERI, JESSEI DO Unavailable Unavailable JAROD-MERI, JESSIE DO Unavailable Unavailable JAROD-MERI, JESSIE DO Unavailable Unavailable JAROD-MERI, JESSIE DO Unavailable Unavailable JAROD-MERI, JESSIE DO Unavailable Unavailable JAROD-MERI, JESSIE DO Unavailable Unavailable JAROD-MERI, JESSIE DO Unavailable Unavailable JAROD-MERI, JESSIE DO Unavailable Unavailable JAROD-MERI, JESSIE DO Unavailable Unavailable JAROD-MERI, JESSIE DO Unavailable Unavailable JAROD-MERI, JESSIE DO Unavailable Unavailable JAROD-MERI, JESSIE DO Unavailable Unavailable JAROD-MERI, JESSIE DO Unavailable Unavailable JAROD-MERI, JESSIE DO Unavailable Unavailable JAROD-MERI, JESSIE DO Unavailable Unavailable JAROD-MERI, JESSIE DO Unavailable Unavailable JAROD-MERI, JESSIE DO Unavailable Unavailable JAROD-MERI, JESSIE DO Unavailable Unavailable JAROD-MERI, JESSIE DO Unavailable Unavailable JAROD-MERI, JESSIE DO Unavailable Unavailable JAROD-MERI, JESSIE DO Unavailable Unavailable JAROD-MERI, JESSIE DO Unavailable Unavailable JAROD-MERI, JESSIE DO Unavailable Unavailable JAROD-MERI, JESSIE DO Unavailable Unavailable JAROD-MERI, JESSIE DO Unavailable Unavailable JAROD-MERI, JESSIE DO Unavailable Unavailable JAROD-MERI, JESSIE DO Unavailable Unavailable JAROD-MERI, JESSIE DO Unavailable Unavailable JAROD-MERI, JESSIE DO Unavailable Unavailable JAROD-MERI, JESSIE DO Unavailable Unavailable JAROD-MERI, JESSIE DO Unavailable Unavailable JAROD-MERI, JESSIE DO Unavailable Unavailable JAROD-MERI, JESSIE DO Unavailable Unavailable JAROD-MERI, JESSIE DO Unavailable Unavailable JAROD-MERI, JESSIE DO Unavailable Unavailable JAROD-MERI, JESSIE DO Unavailable Unavailable JAROD-MERI, JESSIE DO Unavailable Unavailable JAROD-MERI, JESSIE DO Unavailable Unavailable JAROD-MERI, JESSIE DO Unavailable Unavailable JAROD-MERI, JESSIE DO Unavailable Unavailable JAROD-MERI, JESSIE DO Unavailable Unavailable JAROD-MERI, JESSIE DO Unavailable Unavailable JAROD-MERI, JESSIE DO Unavailable Unavailable JAROD-MERI, JESSIE DO Unavailable Unavailable JAROD-MERI, JESSIE DO Unavailable Unavailable JAROD-MERI, JESSIE DO Unavailable Unavailable JAROD-MERI, JESSIE DO Unavailable Unavailable JAROD-MERI, JESSIE DO Unavailable Unavailable JAROD-MERI, JESSIE DO Unavailable Unavailable JAROD-MERI, JESSIE DO Unavailable Unavailable JAROD-MERI, JESSIE DO Unavailable Unavailable JAROD-MERI, JESSIE DO Unavailable Unavailable JAROD-MERI, JESSIE DO Unavailable Unavailable JAROD-MERI, JESSIE DO Unavailable Unavailable JAROD-MERI, JESSIE DO Unavailable Unavailable JAROD-MERI, JESSIE DO Unavailable Unavailable JAROD-MERI, JESSIE DO Unavailable Unavailable JAROD-MERI, JESSIE DO Unavailable Unavailable JAROD-MERI, JESSIE DO Unavailable Unavailable JAROD-MERI, JESSIE DO Unavailable Unavailable O'lino, A Alex PA Unavailable Unavailable O'lino, A Alex PA Unavailable Unavailable O'lino, A Alex PA Unavailable Unavailable O'lino, A Alex PA Unavailable Unavailable O'ilno, A Alex PA Unavailable Unavailable O'lino, A Alex PA Unavailable Unavailable O'lino, A Alex PA Unavailable Unavailable O'lino, A Alex PA Unavailable Unavailable O'lino, A Alex PA Unavailable Unavailable O'lino, A Alex PA Unavailable Unavailable O'lino, A Alex PA Unavailable Unavailable O'lino, A Alex PA Unavailable Unavailable O'lino, A Alex PA Unavailable Unavailable O'lino, A Alex PA Unavailable Unavailable O'lino, A Alex PA Unavailable Unavailable O'lino, A Alex PA Unavailable Unavailable O'lino, A Alex PA Unavailable Unavailable O'lino, A Alex PA Unavailable Unavailable O'lino, A Alex PA Unavailable Unavailable O'lino, A Alex PA Unavailable Unavailable O'lino, A Alex PA Unavailable Unavailable O'lino, A Alex PA Unavailable Unavailable O'lino, A Alex PA Unavailable Unavailable O'lino, A Alex PA Unavailable Unavailable O'lino, A Alex PA Unavailable Unavailable O'lino, A Alex PA Unavailable Unavailable O'lino, A Alex PA Unavailable Unavailable O'lino, A Alex PA Unavailable Unavailable O'lino, A Alex PA Unavailable Unavailable O'lino, A Alex PA Unavailable Unavailable O'lino, A Alex PA Unavailable Unavailable O'lino, A Alex PA Unavailable Unavailable Re-disclosure Warning The records that you are about to access may contain information from federally-assisted alcohol or drug abuse programs. If such information is present, then the following federally mandated warning applies: This information has been disclosed to you from records protected by federal confidentiality rules (42 CFR part 2). The federal rules prohibit you from making any further disclosure of this information unless further disclosure is expressly permitted by the written consent of the person to whom it pertains or as otherwise permitted by 42 CFR part 2. A general authorization for the release of medical or other information is NOT sufficient for this purpose. The Federal rules restrict any use of the information to criminally investigate or prosecute any alcohol or drug abuse patient.The records that you are about to access may contain highly sensitive health information, the redisclosure of which is protected by Article 27-F of the [facility] Public Health law. If you continue you may have access to information: Regarding HIV / AIDS; Provided by facilities licensed or operated by the [facility] Office of Mental Health; or Provided by the [facility] Office for People With Developmental Disabilities. If such information is present, then the following [facility] mandated warning applies: This information has been disclosed to you from confidential records which are protected by state law. State law prohibits you from making any further disclosure of this information without the specific written consent of the person to whom it pertains, or as otherwise permitted by law. Any unauthorized further disclosure in violation of state law may result in a fine or prison sentence or both. A general authorization for the release of medical or other information is NOT sufficient authorization for further disc losure. Allergies and Adverse Reactions Type Description Substance Reaction Status Data Source(s ) latex latex latex rash Active eCW1 ([facility]) Family History Family Member Name Family Member Gender Family Member Status Date o f Status Description Data Source(s) Unknown Unknown Problem [facility] ([facility]) Unknown Unknown Problem [facility] ([facility]) father Unknown Female Problem [facility] ([facility]) Encounters Encounter Providers Location Date Indications Data Source(s ) Outpatient Attender: Jg CORDOVA [facility] 07/22/2020 03:00:00 PM EDT [facility] ([facility]) Outpatient Attender: Jg CORDOVA [facility] 04/21/2020 03:00:00 PM EDT [facility] ([facility]) Outpatient Attender: Alex CORDOVA [facility] 01/17/2020 08:30:00 AM EDT [facility] ([facility]) [address] [id number] 11/28/2019 12:00:00 AM EST eCW1 ([facility]) Outpatient Attender: Alex CORDOVA [facility] 11/08/2019 01:00:00 PM EST [facility] ([facility]) Outpatient Attender: JESSIE HILL DO [facility] 09/17/2019 02:00:00 PM EST MEDENT ([facility]) Immunizations Vaccine Date Status Description Data Source(s) New in 2011. IIV4 07/22/2020 03:22:00 PM EDT completed MED[facility] ([facility]) Medications Medication Brand Name Start Date Product Form Dose Route Admi nistrative Instructions Pharmacy Instructions Status Indications Reaction Description Data Source(s) Betamethasone Dipropionate/Minoxidil 10/22/2020 12:00:00 AM EST TOPICAL active MED[facility] ([facility]) Shingrix Shingrix 09/25/2020 12:00:00 AM EST SUBCUTANEOUS active MED[facility] ([facility]) Ergocalciferol 73180 UNT Oral Capsule Ergocalciferol 01/17/2020 12:00:00 AM EDT active MED[facility] ( [facility]) ferrous sulfate 325 MG Oral Tablet Iron High-Potency 01/17/2020 12:00:00 AM EDT ORAL active MED[facility] ( [facility]) Amoxicillin 875 MG / Clavulanate 125 MG Oral Tablet Amoxicillin-Pot Clavulanate 875-125 MG Amoxicillin-Pot Clavulanate 875-125 MG 11/28/2019 12:00:00 AM ES T active 1 tablet eCW1 ([facility]) Cholecalciferol 2000 UNT Oral Capsule Vitamin D3 09/17/2019 12:00:00 AM EST ORAL completed MEDENT ([facility]) Insurance Providers Payer name Policy type / Coverage type Policy ID Covered libertarian ID Covered libertarian's relationship to murphy Policy Murphy Plan Information [facility] [id number] SP [id number] [facility] [id number] [facility] [id number] SP [id number] [facility] [id number] SP [id number] [facility] [id number] SP [id number] [employer] [id number] SP [id number] [employer] [id number] SP [id number] [employer] [id number] Self [id number] [employer] AT [facility] Health Maintenance Organization (HMO) [id number] Self [id number] [employer] [id number] Self 00 [id number] [employer] [id number] Self 00 [id number] [employer] [id number] Self 00 [id number] [employer] [id number] Self 00 [id number] [employer] [id number] Self 00 [id number] [facility] [id number] Self [id number] [employer] [id number] Self 00 [id number] [employer] [id number] Self 00 [id number] [employer] [id number] Self 00 [id number] [employer] [id number] Self 00 [id number] [employer] [id number] Self 00 [id number] [employer] [id number] Self 00 [id number] [employer] [id number] Self 00 [id number] [employer] Self BA [facility] [id number] Surgeries/Procedures Procedure Description Date Indications Data Source(s) Skin Tissue Rearrange To 10 SQ CM Eyelid/Nose/Ear/Lip 02/06/2020 12:00:00 AM EDT MED[facility] ([facility] rucker, CANELO) Influenza A+B 11/28/2019 12:00:00 AM EST eCW1 ([facility]) STREP A ASSAY W/OPTIC 11/28/2019 12:00:00 AM EST eCW1 ([facility]) Results ID Date Data Source [id number] 11/01/2020 11:00:00 AM EST [facility] Name Value Range Interpretation Code Description Data Diane rce(s) Supporting Document(s) SARS coronavirus 2 RNA Not Detected [facility] [place] This lab was ordered by [facility] and reported by [facility]. ID Date Data Source [id number] 10/21/2020 01:22:00 PM EST MED[facility] ([facility]) Name Value Range Interpretation Code Description Data Diane rce(s) Supporting Document(s) Calcidiol [Mass/volume] in Serum or Plasma 25.3 ng/mL 30.0- 100.0 Below low normal [facility] ([facility]) ID Date Data Source [id number] 10/21/2020 01:22:00 PM EST [facility] ([facility]) Name Value Range Interpretation Code Description Data Diane rce(s) Supporting Document(s) Creatinine For GFR 0.90 mg/dL 0.55-1.30 Normal (applies to non -numeric results) [facility] ([facility]) Glucose, Fasting 98 mg/dL 70-100 Normal (applies to non-numeric results) [facility] ([facility]) Blood Urea Nitrogen 11 mg/dL 7-18 Normal (applies to non-nume young results) [facility] ([facility]) Glomerular Filtration Rate Laboratory test result Normal (applies to non- numeric results) [facility] ([facility]) <content>Units are mL/min/1.73 m2</content>
<content></content>
<content>Chronic Kidney Disease Staging per NKF:</content>
<content></content>
<content>Stage I & II GFR >=60 Normal to Mildly Decreased</content>
<content>Stage III GFR 30- 59 Moderately Decreased</content>
<content>Stage IV GFR 15-29 Severely Decreased</content>
<content>Stage V GFR <15 Very Little GFR Left</content>
<content>ESRD GFR <15 on EQUIP TECH</content>
<content></content> Sodium Level 139 meq/L 136-145 Normal (applies to non-numeric res ults) [facility] ([facility]) Potassium Serum 4.0 meq/L 3.5-5.1 Normal (applies to non-numeric results) [facility] ([facility]) Chloride Level 104 meq/L 98-107 Normal (applies to non-numeric r esults) [facility] ([facility]) Carbon Dioxide Level 32 meq/L 21-32 Normal (applies to non-num meño results) [facility] ([facility]) Calcium Level 9.2 mg/dL 8.5-10.1 Normal (applies to non-numeric re sults) [facility] ([facility]) Anion Gap 3 meq/L 8-16 Below low normal [facility] ( [facility]) ID Date Data Source [id number] 09/18/2020 12:00:[address] [facility] Name Value Range Interpretation Code Description Data Diane rce(s) Supporting Document(s) SARS coronavirus [address] [facility] This lab was ordered by [facility] and reported by [facility]. ID Date Data Source [id number] 08/07/2020 12:00:00 AM EST [facility] Patient Name: [id number], [address] Date of :1970[place] [address] Date of Exam: 08/07/2020#: Fax: YHAL : MAMMO SCREENING WITH CADCLINICAL INFORMATION: Screening.Based on the personal and family history information your patient suppliedat the time of imaging, her lifetime risk of breast cancer estimated by theTyrer-Cuzick model is 11.5%. Given that this patient has less than 20% TCrisk score, no further medical management is currently recommended at thistime.Digital screening (2D) mammography was performed bilaterally in the CC andMLO projections. Additionally, breast tomosynthesis (3D mammography) wasperformed bilaterally in the CC and MLO projections. Today's exam wascompared to the prior exam(s).By history, the patient has no complaints of a palpable breast abnormalityor other significant breast complaints.The patient states last clinical breast exam was some time during theSp2019.The breasts are unchanged in size and shape. There are no adán-soft tissuedensities or spiculated masses. There is no internal architecturaldistortion. There are no suspicious adán-calcific clusters. Skinthickening or nipple retraction is not present.The Volpara volumetric breast density category is B, there are scatteredareas of fibroglandular density.IMPRESSION:BI-RADS Category 1 - Negative Mammogram. Stable mammogram. There is noevidence of malignant alteration of the breasts. Followup examinationrecommended in one year.This mammogram was read with the assistance of [employer]archment, an FDAapproved computer aided detection system for mammography.Negative x-ray reports should not delay surgical consultation if a dominantor clinically suspicious mass is present.Not all breast cancers can be identified by mammography. Therefore, werecommend that you continue to perform regular breast self-examination andphysical examination and then promptly contact your physician of anyconcerns or changes.Adenosis and dense breasts may obscure an underlying neoplasm.VINNY Carrillo/Adina you for referring BREANNE VALDIVIA to our office.Electronically Signed - PARKER RUBIO DO 08/07/20 16:50 Name Value Range Interpretation Code Description Data Diane rce(s) Supporting Document(s) ID Date Data Source [id number] 07/16/2020 03:06:00 PM EDT [facility] ([facility]) Name Value Range Interpretation Code Description Data Diane rce(s) Supporting Document(s) Free T4 0.90 ng/dL 0.76-1.46 Normal (applies to non-numeric resul ts) [facility] ([facility]) Thyroid Stimulating Hormone 3.130 uIU/ML 0.358-3.740 Norm al (applies to non- numeric results) [facility] ([facility]) ID Date Data Source [id number] 07/16/2020 03:06:00 PM EDT [facility] ([facility]) Name Value Range Interpretation Code Description Data Diane rce(s) Supporting Document(s) Triglycerides Level 71 mg/dL Normal (applies to non-nume young results) [facility] ([facility]) HDL Cholesterol 44 mg/dL Normal (applies to non-numeric results) [facility] ([facility]) Cholesterol Level 171 mg/dL Normal (applies to non-numeri c results) [facility] ([facility]) Non-HDL-C 127 mg/dL Normal (applies to non-numeric resul ts) [facility] ([facility]) Cholesterol Risk Ratio 3.886 Normal (applies to non-n umeric results) [facility] ([facility]) LDL Cholesterol 113 mg/dL Above high normal [facility] ([facility]) ID Date Data Source [id number] 07/16/2020 03:06:00 PM EDT [facility] ([facility]) Name Value Range Interpretation Code Description Data Diane rce(s) Supporting Document(s) Blood Urea Nitrogen 13 mg/dL 7-18 Normal (applies to non-nume young results) [facility] ([facility]) Glucose, Fasting 81 mg/dL 70-100 Normal (applies to non-numeric results) [facility] ([facility]) Creatinine For GFR 0.86 mg/dL 0.55-1.30 Normal (applies to non -numeric results) [facility] ([facility]) Glomerular Filtration Rate Laboratory test result Normal (applies to non- numeric results) [facility] ([facility]) <content>Units are mL/min/1.73 m2</content>
<content></content>
<content>Chronic Kidney Disease Staging per NKF:</content>
<content></content>
<content>Stage I & II GFR >=60 Normal to Mildly Decreased</content>
<content>Stage III GFR 30- 59 Moderately Decreased</content>
<content>Stage IV GFR 15-29 Severely Decreased</content>
<content>Stage V GFR <15 Very Little GFR Left</content>
<content>ESRD GFR <15 on EQUIP TECH</content>
<content></content> Potassium Serum 3.7 meq/L 3.5-5.1 Normal (applies to non-numeric results) [facility] ([facility]) Chloride Level 101 meq/L 98-107 Normal (applies to non-numeric r esults) [facility] ([facility]) Sodium Level 136 meq/L 136-145 Normal (applies to non-numeric res ults) [facility] ([facility]) Anion Gap 4 meq/L 8-16 Below low normal [facility] Carbon Dioxide Level 31 meq/L 21-32 Normal (applies to non-num meño results) [facility] ([facility]) Calcium Level 9.9 mg/dL 8.5-10.1 Normal (applies to non-numeric re sults) [facility] ([facility]) Alt/SGPT 25 U/L 12-78 Normal (applies to non-numeric resul ts) [facility] ([facility]) Ast/Sgot 22 U/L 7-37 Normal (applies to non-numeric resul ts) [facility] ([facility]) Total Protein 7.8 GM/DL 6.4-8.2 Normal (applies to non-numeric re sults) [facility] ([facility]) Alkaline Phosphatase 73 U/L 45-117 Normal (applies to non-num meño results) [facility] ([facility]) Bilirubin,Total 0.6 mg/dL 0.2-1.0 Normal (applies to non-numeric results) [facility] ([facility]) Albumin 3.7 GM/DL 3.2-5.2 Normal (applies to non-numeric resul ts) [facility] ([facility]) Albumin/Globulin Ratio 0.9 1.2-2.2 Below low normal [facility] ([facility]) ID Date Data Source [id number] 07/16/2020 03:06:00 PM EDT [facility] ([facility]) Name Value Range Interpretation Code Description Data Diane rce(s) Supporting Document(s) White Blood Count 7.3 10 4.0-10.0 Normal (applies to non-numeri c results) [facility] ([facility]) Red Blood Count 4.28 10 4.00-5.40 Normal (applies to non-numeric results) [facility] ([facility]) Hematocrit 38.4 % 36.0-47.0 Normal (applies to non-numeric resul ts) [facility] ([facility]) Hemoglobin 12.4 g/dL 12.0-15.5 Normal (applies to non-numeric resul ts) [facility] ([facility]) Mean Corpuscular HGB Conc 32.3 g/dL 32.0-36.5 Normal (applies to non-numeric results) [facility] ([facility]) Mean Corpuscular Volume 89.7 fl 80.0-96.0 Normal ( applies to non-numeric results) [facility] ([facility]) Mean Corpuscular Hemoglobin 29.0 pg 27.0-33.0 Norm al (applies to non-numeric results) [facility] ([facility]) Platelet Count, Automated 376 10 150-450 Normal (applies to non-numeric results) [facility] ([facility]) Red Cell Distribution Width 12.8 % 11.5-14.5 Norm al (applies to non-numeric results) [facility] ([facility]) Neutrophils % 45.9 % 36.0-66.0 Normal (applies to non-numeric re sults) [facility] ([facility]) Yates % 8.5 % 0.0-5.0 Above high normal [facility] ([facility]) Lymph % 41.3 % 24.0-44.0 Normal (applies to non-numeric resul ts) [facility] ([facility]) Eos % 3.3 % 0.0-3.0 Above high normal [facility] ([facility]) Immature Granulocyte % 0.3 % 0-3.0 Normal (applies to non-n umeric results) [facility] ([facility]) Baso % 0.7 % 0.0-1.0 Normal (applies to non-numeric resul ts) [facility] ([facility]) Nucleated Red Blood Cell % 0.0 % 0-0 Normal (applies to n on-numeric results) [facility] ([facility]) Lymph # 3.0 10 1.5-5.0 Normal (applies to non-numeric resul ts) [facility] ([facility]) Neutrophils # 3.4 10 1.5-8.5 Normal (applies to non-numeric re sults) [facility] ([facility]) Yates # 0.6 10 0.0-0.8 Normal (applies to non-numeric resul ts) [facility] ([facility]) Eos # 0.2 10 0.0-0.5 Normal (applies to non-numeric resul ts) [facility] ([facility]) Baso # 0.1 10 0.0-0.2 Normal (applies to non-numeric resul ts) [facility] ([facility]) ID Date Data Source [id number] 04/17/2020 02:57:00 PM EDT [facility] ([facility]) Name Value Range Interpretation Code Description Data Diane rce(s) Supporting Document(s) Red Blood Count 4.04 10 4.00-5.40 Normal (applies to non-numeric results) [facility] ([facility]) Hemoglobin 12.3 g/dL 12.0-15.5 Normal (applies to non-numeric resul ts) [facility] ([facility]) White Blood Count 6.1 10 4.0-10.0 Normal (applies to non-numeri c results) [facility] ([facility]) Mean Corpuscular HGB Conc 33.2 g/dL 32.0-36.5 Normal (applies to non-numeric results) [facility] ([facility]) Mean Corpuscular Hemoglobin 30.4 pg 27.0-33.0 Norm al (applies to non-numeric results) [facility] ([facility]) Hematocrit 37.0 % 36.0-47.0 Normal (applies to non-numeric resul ts) [facility] ([facility]) Mean Corpuscular Volume 91.6 fl 80.0-96.0 Normal ( applies to non-numeric results) [facility] ([facility]) Platelet Count, Automated 367 10 150-450 Normal (applies to non-numeric results) [facility] ([facility]) Red Cell Distribution Width 12.6 % 11.5-14.5 Norm al (applies to non-numeric results) [facility] ([facility]) Yates % 8.1 % 0.0-5.0 Above high normal [facility] ([facility]) Lymph % 46.4 % 24.0-44.0 Above high normal [facility] ([facility]) Neutrophils % 41.4 % 36.0-66.0 Normal (applies to non-numeric re sults) [facility] ([facility]) Baso % 1.0 % 0.0-1.0 Normal (applies to non-numeric resul ts) [facility] ([facility]) Eos % 2.8 % 0.0-3.0 Normal (applies to non-numeric resul ts) [facility] ([facility]) Immature Granulocyte % 0.3 % 0-3.0 Normal (applies to non-n umeric results) [facility] ([facility]) Nucleated Red Blood Cell % 0.0 % 0-0 Normal (applies to n on-numeric results) [facility] ([facility]) Lymph # 2.8 10 1.5-5.0 Normal (applies to non-numeric resul ts) [facility] ([facility]) Neutrophils # 2.5 10 1.5-8.5 Normal (applies to non-numeric re sults) [facility] ([facility]) Baso # 0.1 10 0.0-0.2 Normal (applies to non-numeric resul ts) [facility] ([facility]) Eos # 0.2 10 0.0-0.5 Normal (applies to non-numeric resul ts) [facility] ([facility]) Yates # 0.5 10 0.0-0.8 Normal (applies to non-numeric resul ts) [facility]) ID Date Data Source [id number] 04/17/2020 02:54:00 PM EDT [facility] ([facility]) Name Value Range Interpretation Code Description Data Diane rce(s) Supporting Document(s) Calcidiol [Mass/volume] in Serum or Plasma 51.5 ng/mL 30.0- 100.0 Normal (applies to non-numeric results) [facility] ([facility]) Ferritin [Mass/volume] in Serum or Plasma 60 ng/mL 8-252 Normal (applies to non- numeric results) [facility] ([facility]) ID Date Data Source [id number] 04/17/2020 02:54:00 PM EDT [facility] Name Value Range Interpretation Code Description Data Diane rce(s) Supporting Document(s) Total Iron Binding Capacity 435 ug/dL 250-450 Norm al (applies to non-numeric results) [facility] ([facility]) Iron (Fe) 67 ug/dL 50-170 Normal (applies to non-numeric resul ts) [facility] ([facility]) Percent Saturation 15.4 % 13.2-45.0 Normal (applies to non-numer ic results) [facility] ([facility]) ID Date Data Source [id number] 04/17/2020 02:54:00 PM EDT [facility]) Name Value Range Interpretation Code Description Data Diane rce(s) Supporting Document(s) Glucose, Fasting 79 mg/dL 70-100 Normal (applies to non-numeric results) [facility] ([facility]) Glomerular Filtration Rate Laboratory test result Normal (applies to non- numeric results) [facility] ([facility]) <content>Units are mL/min/1.73 m2</content>
<content></content>
<content>Chronic Kidney Disease Staging per NKF:</content>
<content></content>
<content>Stage I & II GFR >=60 Normal to Mildly Decreased</content>
<content>Stage III GFR 30- 59 Moderately Decreased</content>
<content>Stage IV GFR 15-29 Severely Decreased</content>
<content>Stage V GFR <15 Very Little GFR Left</content>
<content>ESRD GFR <15 on EQUIP TECH</content>
<content></content> Creatinine For GFR 0.90 mg/dL 0.55-1.30 Normal (applies to non -numeric results) [facility] ([facility]) Blood Urea Nitrogen 12 mg/dL 7-18 Normal (applies to non-nume young results) [facility] ([facility]) Sodium Level 141 meq/L 136-145 Normal (applies to non-numeric res ults) [facility] ([facility]) Potassium Serum 4.0 meq/L 3.5-5.1 Normal (applies to non-numeric results) [facility] Chloride Level 107 meq/L 98-107 Normal (applies to non-numeric r esults) [facility] ([facility]) Anion Gap 4 meq/L 8-16 Below low normal [facility]) Calcium Level 9.0 mg/dL 8.5-10.1 Normal (applies to non-numeric re sults) [facility] ([facility]) Carbon Dioxide Level 30 meq/L 21-32 Normal (applies to non-num meño results) [facility] ([facility]) ID Date Data Source [id number] 01/11/2020 07:37:00 AM EDT [facility]) Name Value Range Interpretation Code Description Data Diane rce(s) Supporting Document(s) Ferritin [Mass/volume] in Serum or Plasma 46 ng/mL 8-252 Normal (applies to non- numeric results) [facility] ([facility]) ID Date Data Source [id number] 01/11/2020 07:37:00 AM EDT [facility] ([facility]) Name Value Range Interpretation Code Description Data Diane rce(s) Supporting Document(s) Percent Saturation 10.9 % 13.2-45.0 Below low normal [facility] ([facility]) Total Iron Binding Capacity 439 ug/dL 250-450 Norm al (applies to non-numeric results) [facility] ([facility]) Iron (Fe) 48 ug/dL 50-170 Below low normal [facility] ( [facility]) ID Date Data Source [id number] 01/11/2020 07:37:00 AM EDT [facility] ([facility]) Name Value Range Interpretation Code Description Data Diane rce(s) Supporting Document(s) White Blood Count 4.7 10 4.0-10.0 Normal (applies to non-numeri c results) [facility] ([facility]) Hematocrit 37.4 % 36.0-47.0 Normal (applies to non-numeric resul ts) [facility] ([facility]) Red Blood Count 4.09 10 4.00-5.40 Normal (applies to non-numeric results) [facility] ([facility]) Hemoglobin 12.3 g/dL 12.0-15.5 Normal (applies to non-numeric resul ts) [facility] ([facility]) Mean Corpuscular Volume 91.4 fl 80.0-96.0 Normal ( applies to non-numeric results) [facility] ([facility]) Mean Corpuscular Hemoglobin 30.1 pg 27.0-33.0 Norm al (applies to non-numeric results) [facility] ([facility]) Mean Corpuscular HGB Conc 32.9 g/dL 32.0-36.5 Normal (applies to non-numeric results) [facility] ([facility]) Red Cell Distribution Width 13.0 % 11.5-14.5 Norm al (applies to non-numeric results) [facility] ([facility]) Lymph % 49.4 % 24.0-44.0 Above high normal [facility] ([facility]) Neutrophils % 36.7 % 36.0-66.0 Normal (applies to non-numeric re sults) [facility] ([facility]) Platelet Count, Automated 456 10 150-450 Above high normal [facility] ([facility]) Eos % 3.6 % 0.0-3.0 Above high normal [facility] ([facility]) Immature Granulocyte % 0.2 % 0-3.0 Normal (applies to non-n umeric results) [facility] ([facility]) Baso % 1.5 % 0.0-1.0 Above high normal [facility] ([facility]) Yates % 8.6 % 0.0-5.0 Above high normal [facility] ([facility]) Nucleated Red Blood Cell % 0.0 % 0-0 Normal (applies to n on-numeric results) [facility] ([facility]) Neutrophils # 1.7 10 1.5-8.5 Normal (applies to non-numeric re sults) [facility] ([facility]) Lymph # 2.3 10 1.5-5.0 Normal (applies to non-numeric resul ts) [facility] ([facility]) Yates # 0.4 10 0.0-0.8 Normal (applies to non-numeric resul ts) [facility] ([facility]) Baso # 0.1 10 0.0-0.2 Normal (applies to non-numeric resul ts) [facility] ([facility]) Eos # 0.2 10 0.0-0.5 Normal (applies to non-numeric resul ts) [facility] ([facility]) ID Date Data Source [id number] 01/11/2020 07:37:00 AM EDT [facility] ([facility]) Name Value Range Interpretation Code Description Data Diane rce(s) Supporting Document(s) Calcidiol [Mass/volume] in Serum or Plasma 28.5 ng/mL 30.0- 100.0 Below low normal [facility] ([facility]) ID Date Data Source [id number] 01/11/2020 07:37:00 AM EDT [facility] ([facility]) Name Value Range Interpretation Code Description Data Diane rce(s) Supporting Document(s) Triglycerides Level 42 mg/dL Normal (applies to non-nume young results) [facility] ([facility]) HDL Cholesterol 36 mg/dL Below low normal [facility] ([facility]) Cholesterol Level 146 mg/dL Normal (applies to non-numeri c results) [facility] ([facility]) LDL Cholesterol 102 mg/dL Above high normal [facility] ([facility]) Cholesterol Risk Ratio 4.055 Normal (applies to non-n umeric results) [facility] ([facility]) Non-HDL-C 110 mg/dL Normal (applies to non-numeric resul ts) [facility] ([facility]) ID Date Data Source [id number] 01/11/2020 07:37:00 AM EDT [facility] ([facility]) Name Value Range Interpretation Code Description Data Diane rce(s) Supporting Document(s) Glucose, Fasting 98 mg/dL 70-100 Normal (applies to non-numeric results) [facility] ([facility]) Blood Urea Nitrogen 12 mg/dL 7-18 Normal (applies to non-nume young results) [facility] ([facility]) Creatinine For GFR 0.86 mg/dL 0.55-1.30 Normal (applies to non -numeric results) [facility] ([facility]) Potassium Serum 4.2 meq/L 3.5-5.1 Normal (applies to non-numeric results) [facility] ([facility]) Glomerular Filtration Rate Laboratory test result Normal (applies to non- numeric results) [facility] ([facility]) <content>Units are mL/min/1.73 m2</content>
<content></content>
<content>Chronic Kidney Disease Staging per NKF:</content>
<content></content>
<content>Stage I & II GFR >=60 Normal to Mildly Decreased</content>
<content>Stage III GFR 30- 59 Moderately Decreased</content>
<content>Stage IV GFR 15-29 Severely Decreased</content>
<content>Stage V GFR <15 Very Little GFR Left</content>
<content>ESRD GFR <15 on EQUIP TECH</content>
<content></content> Chloride Level 106 meq/L 98-107 Normal (applies to non-numeric r esults) [facility] ([facility]) Sodium Level 141 meq/L 136-145 Normal (applies to non-numeric res ults) [facility] ([facility]) Carbon Dioxide Level 28 meq/L 21-32 Normal (applies to non-num meño results) [facility] ([facility]) Anion Gap 7 meq/L 8-16 Below low normal [facility] ( [facility]) Calcium Level 8.9 mg/dL 8.5-10.1 Normal (applies to non-numeric re sults) [facility] ([facility]) Alt/SGPT 17 U/L 12-78 Normal (applies to non-numeric resul ts) [facility] ([facility]) Alkaline Phosphatase 118 U/L 45-117 Above high normal [facility] ([facility]) Ast/Sgot 19 U/L 7-37 Normal (applies to non-numeric resul ts) [facility] ([facility]) Total Protein 7.8 GM/DL 6.4-8.2 Normal (applies to non-numeric re sults) [facility] ([facility]) Albumin 3.5 GM/DL 3.2-5.2 Normal (applies to non-numeric resul ts) [facility] ([facility]) Bilirubin,Total 0.4 mg/dL 0.2-1.0 Normal (applies to non-numeric results) [facility] ([facility]) Albumin/Globulin Ratio 0.81 1.00-1.93 Below low normal [facility] ([facility]) ID Date Data Source GATS (NEGATIVE STREP SCREEN) 11/28/2019 12:00:00 AM EST eCW1 (Formerly [facility]) Name Value Range Interpretation Code Description Data Diane rce(s) Supporting Document(s) FULL REPORT IN LAB NOTES (eCW and [facility]). GATS CULTURE (NEG STREP SCR) eCW1 ([facility]) Procedure Social History Code Duration Value Status Description Data Source(s ) Smoking 10/22/2020 12:00:00 AM EST Patient has never smoked co mpleted Patient has never smoked [facility] ([facility]) Vital Signs ID Date Data Source UNK Name Value Range Interpretation Code Description Data Source(s) [place] body weight 115 [lb_av] 115 [lb_av] [facility] T ([facility]) Oxygen saturation in Arterial blood by Pulse oximetry 99 % 99 % [facility] ([facility]) Body temperature 98.4 [degF] 98.4 [degF] [facility] ([facility]) Respiratory rate 18 /min 18 /min [facility] ( [facility]) Heart rate 75 /min 75 /min [facility] ([facility]) Body mass index (BMI) [Ratio] 33.1 kg/m2 33.1 k g/m2 [facility] ([facility]) Body weight 191.00 [lb_av] 191.00 [lb_av] [facility] T ([facility]) Body height 63.7 [in_i] 63.7 [in_i] [facility] ([facility]) 5'3.70" Diastolic blood pressure 76 mm[Hg] 76 mm[Hg] [facility] ([facility]) Systolic blood pressure 124 mm[Hg] 124 mm[Hg] [facility] ([facility]) Body surface area Derived from formula 1.92 m2 1.92 m2 [facility] ([facility]) Body weight 87.545 kg 87.545 kg [facility] ([facility], ) Atkinson body weight 115 [lb_av] 115 [lb_av] [facility] T ([facility]) Body mass index (BMI) [Ratio] 33.6 kg/m2 33.6 k g/m2 [facility] ([facility]) Body weight 193.00 [lb_av] 193.00 [lb_av] [facility] ([facility]) Body height 63.5 [in_i] 63.5 [in_i] [facility] ([facility]) 5'3.50" Body temperature 98.1 [degF] 98.1 [degF] [facility] ([facility]) Heart rate 73 /min 73 /min [facility] ([facility], ) Diastolic blood pressure 87 mm[Hg] 87 mm[Hg] [facility] ([facility]) Systolic blood pressure 135 mm[Hg] 135 mm[Hg] M [facility] ([facility]) Atkinson body weight 115 [lb_av] 115 [lb_av] [facility] ([facility]) Oxygen saturation in Arterial blood by Pulse oximetry 100 % 100 % [facility] ([facility]) Body temperature 97.6 [degF] 97.6 [degF] [facility] ([facility]) Respiratory rate 16 /min 16 /min [facility] ( [facility]) Heart rate 60 /min 60 /min [facility] ([facility]) Body mass index (BMI) [Ratio] 32.1 kg/m2 32.1 k g/m2 [facility] ([facility]) Body weight 185.50 [lb_av] 185.50 [lb_av] [facility] ([facility]) Body height 63.7 [in_i] 63.7 [in_i] [facility] ([facility]) 5'3.70" Diastolic blood pressure 80 mm[Hg] 80 mm[Hg] [facility] ([facility]) Systolic blood pressure 120 mm[Hg] 120 mm[Hg] M [facility] ([facility]) Atkinson body weight 115 [lb_av] 115 [lb_av] [facility] ([facility]) Oxygen saturation in Arterial blood by Pulse oximetry 99 % 99 % [facility] ([facility]) Body temperature 98.6 [degF] 98.6 [degF] [facility] ([facility]) Respiratory rate 18 /min 18 /min [facility] ( [facility]) Body mass index (BMI) [Ratio] 31.5 kg/m2 31.5 k g/m2 [facility] ([facility]) Body weight 182.00 [lb_av] 182.00 [lb_av] [facility] ([facility]) Body height 63.7 [in_i] 63.7 [in_i] [facility]) 5'3.70" Diastolic blood pressure 82 mm[Hg] 82 mm[Hg] [facility] ([facility]) Systolic blood pressure 124 mm[Hg] 124 mm[Hg] [facility] Body surface area Derived from formula 1.88 m2 1.88 m2 [facility] ([facility], ) Body weight 83.576 kg 83.576 kg [facility] [place] body weight 115 [lb_av] 115 [lb_av] [facility] T ([facility]) Body mass index (BMI) [Ratio] 32.1 kg/m2 32.1 k g/m2 [facility] ([facility]) Body weight 184.25 [lb_av] 184.25 [lb_av] [facility] ([facility]) Body height 63.5 [in_i] 63.5 [in_i] [facility]) 5'3.50" Diastolic blood pressure 82 mm[Hg] 82 mm[Hg] [facility] ([facility]) Systolic blood pressure 134 mm[Hg] 134 mm[Hg] [facility] ([facility]) Body weight 83.009 kg 83.009 kg [facility] ([facility]) Body mass index (BMI) [Ratio] 31.9 kg/m2 31.9 k g/m2 [facility] ([facility]) Body weight 183.00 [lb_av] 183.00 [lb_av] [facility] ([facility]) Body height 63.5 [in_i] 63.5 [in_i] [facility] ([facility]) 5'3.50" Body temperature 97.0 [degF] 97.0 [degF] [facility] ([facility]) Diastolic blood pressure 87 mm[Hg] 87 mm[Hg] [facility] ([facility]) Systolic blood pressure 143 mm[Hg] 143 mm[Hg] [facility] ([facility]) [place]kinson body weight 115 [lb_av] 115 [lb_av] [facility] T ([facility]) Oxygen saturation in Arterial blood by Pulse oximetry 99 % 99 % [facility] ([facility]) Body temperature 98.0 [degF] 98.0 [degF] [facility] ([facility]) Respiratory rate 18 /min 18 /min [facility] ( [facility]) Heart rate 80 /min 80 /min [facility] ([facility]) Body mass index (BMI) [Ratio] 31.8 kg/m2 31.8 k g/m2 [facility] ([facility]) Body weight 183.50 [lb_av] 183.50 [lb_av] [facility] T ([facility]) Body height 63.7 [in_i] 63.7 [in_i] [facility] ([facility]) 5'3.70" Diastolic blood pressure 84 mm[Hg] 84 mm[Hg] [facility] ([facility]) Systolic blood pressure 138 mm[Hg] 138 mm[Hg] M [facility] ([facility]) Diastolic blood pressure 95 mm[Hg] 95 mm[Hg] eCW1 ([facility]) Systolic blood pressure 151 mm[Hg] 151 mm[Hg] e CW1 ([facility]) Body temperature [degF] eCW1 ([facility]) Respiratory rate 16 /min 16 /min eCW1 ([facility]) Heart rate 56 /min 56 /min eCW1 ([facility]) Body mass index (BMI) [Ratio] 31.73 kg/m2 31.73 kg/m2 eCW1 ([facility]) Body height 63.5 [in_us] 63.5 [in_us] eCW1 ([facility]) Body weight Measured 182 [lb_av] 182 [lb_av] eC W1 ([facility]) Oxygen saturation in Arterial blood by Pulse oximetry 97 % 97 % [facility] ([facility]) Body temperature 99.0 [degF] 99.0 [degF] [facility] ([facility]) Respiratory rate 18 /min 18 /min [facility] ( [facility]) Heart rate 79 /min 79 /min [facility] ([facility]) Body mass index (BMI) [Ratio] 31.4 kg/m2 31.4 k g/m2 [facility] ([facility]) Body weight 181.25 [lb_av] 181.25 [lb_av] [facility] T ([facility]) Body height 63.7 [in_i] 63.7 [in_i] [facility] ([facility]) 5'3.70" Diastolic blood pressure 76 mm[Hg] 76 mm[Hg] [facility] ([facility]) Systolic blood pressure 124 mm[Hg] 124 mm[Hg] M I[facility] ([facility]) Oxygen saturation in Arterial blood by Pulse oximetry 96 % 96 % [facility] ([facility]) Body temperature 98.1 [degF] 98.1 [degF] [facility] ([facility]) Respiratory rate 18 /min 18 /min [facility] ( [facility]) Heart rate 72 /min 72 /min [facility] ([facility]) Body mass index (BMI) [Ratio] 31.7 kg/m2 31.7 k g/m2 [facility] ([facility]) Body weight 183.25 [lb_av] 183.25 [lb_av] [facility] ([facility]) Body height 63.7 [in_i] 63.7 [in_i] [facility] ([facility]) 5'3.70" Diastolic blood pressure 84 mm[Hg] 84 mm[Hg] [facility] Systolic blood pressure 152 mm[Hg] 152 mm[Hg] M [facility] ([facility]) Patient Treatment Plan of Care Planned Activity Planned Date Details Description Data Source (s) Amoxicillin 875 MG / Clavulanate 125 MG Oral Tablet 11/28/19 12:00:00 AM EST eCW1 (Replaced by [facility])
--- OUTSIDE RECORDS SUMMARY | 2020-11-06 07:49 | CCD | Continuity of Care Document ---
Author Author Rut SHAFFER Organization Unknown Address [address] [facility] [address] [place] [address] Phone [phone] Care Team Providers Care Director Talent Acquisition Name Role Phone Adilia Kaur D.O. AUTM [phone] Jaiden Sauceda M.D. AUTM [phone] Problems Active Problems Provider Date Essential hypertension [...] Use Denies Drug Use Smoking Status Reviewed: 10/22/20 Patient has never smoked Exercise Type/Frequency Does not exercise Sun Exposure Uses sunscreen Seat Belt/Car Seat Always uses seat belt Allergies, Adverse Reactions, Alerts Description No Known Drug Allergies Medications Active Medications SIG Qnty Indications Ordering Provide r Date Betamethasone Dipropionate/Minoxidil 0.05-5% Solution 1 apply to affected area nightly at bedtime 60gm L63. 0 Adilia Fitch D.OAlmita 10/22/2020 Shingrix 50mcg/0.5ML Suspension Re c inject subcutaneous times one 1units Maxwell BriceñoO Almita 09/25/2020 Hydrochlorothiazide 25mg Tablets 1 by mouth every day 90tabs I10 Maxwell BriceñoOAlmita 06/18 Amlodipine Besylate 10mg Tablets 1 by mouth every day 90tabs I10 Maxwell BriceñoO. 03/14 Iron (Ferrous Sulfate) 325(65Fe) mg Tablets [...] CPT Code Status Date Vaccine Lot # [id number] Given 07/22/2020 Influenza Virus Vaccine, Quadrivalent, Split, Preservative Free [id number] Given 06/18/2019 Influenza Virus Vaccine, Quadrivalent, Split, Preservative Free [id number] Vital Signs Date Vital Result Comment 10/22/2020 2:54pm BP Systolic 124 mmHg BP Diastolic 76 mmHg Height 63.7 inches 5'3.70" Weight 191.00 lb BMI (Body Mass Index) 33.1 kg/m2 Heart Rate 75 /min Respiratory Rate 18 /min Body Temperature 98.4 F O2 % BldC Oximetry 99 % [place] Body Weight 115 lb 07/22/2020 2:57pm BP Systolic 120 mmHg BP Diastolic 80 mmHg Height 63.7 inches 5'3.70" Weight 185.50 lb BMI (Body Mass Index) 32.1 kg/m2 Heart Rate 60 /min Respiratory Rate 16 /min Body Temperature 97.6 F O2 % BldC Oximetry 100 % [place] Body Weight 115 lb Results Test Acquired Date Facility Test Result H/L Range Note Basic Metabolic Profile 10/21/2020 [facility] Outpatient [facility] (Registration) [address] [place] [address] [phone] Glucose, Fasting 98 mg/dL Normal 70-100 Blood [...] mg/dL Normal 8.5-10.1 Laboratory test finding 10/21/2020 [facility] Outpatient T esting (Registration) [address] [place] [address] [phone] Total 25(Oh) Vitamin D 25.3 NG/ML Low 30.0-100. 0 CBC With Differential 07/16/2020 [facility] Outpatient Vanna ting (Registration) [address] [place] [address] [phone] White Blood Count 7.3 10 Normal 4.0-10.0 [...] 36.0-66.0 Lymph % 41.3 % Normal 24.0-44.0 [place] % 8.5 % High 0.0-5.0 Eos % 3.3 % High 0.0-3.0 Baso % 0.7 % Normal 0.0-1.0 Immature Granulocyte % 0.3 % Normal 0-3.0 Nucleated Red Blood Cell % 0.0 % Normal 0-0 Neutrophils # 3.4 10 Normal 1.5-8.5 Lymph # 3.0 10 Normal 1.5-5.0 [place] # 0.6 10 Normal 0.0-0.8 Eos # 0.2 10 Normal 0.0-0.5 Baso # 0.1 10 Normal 0.0-0.2 Comprehensive Metabolic Profil 07/16/2020 [facility] Outpa tient Testing (Registration) [address] [place] [address] [phone] Glucose, Fasting 81 mg/dL Normal 70-100 Blood [...] Ratio 0.9 Low 1.2-2.2 Lipid Panel 07/16/2020 [facility] Outpatient Testi ng (Registration) [address] [place], [place] [id number] [phone] Triglycerides Level 71 mg/dL Normal <150 Cholesterol Level 171 mg/dL Normal <200 HDL Cholesterol 44 mg/dL Normal >40 LDL Cholesterol 113 mg/dL High <100 Non-HDL-C 127 mg/dL Normal Cholesterol Risk Ratio 3.886 Normal <5 FT4&TSH Panel 07/16/2020 [facility] Outpatient Testi ng (Registration) 0 [place], [place] [id number] [phone] Thyroid Stimulating Hormone 3.130 uIU/ML Normal 0. 358-3.740 Free T4 0.90 ng/dL Normal 0.76-1.46 1 Units are mL/min/1.73 m2 Chronic Kidney Disease Staging per NKF: Stage I & II GFR >=60 Normal to Mildly Decreased Stage III GFR 30-59 Moderately Decreased Stage IV GFR 15-29 Severely Decreased Stage V GFR <15 Very Little GFR Left ESRD GFR <15 on COOPERATIVE EXTENSION AGENT 2 Units are mL/min/1.73 m2 Chronic Kidney Disease Staging per NKF: Stage I & II GFR >=60 Normal to Mildly Decreased Stage III GFR 30-59 Moderately Decreased Stage IV GFR 15-29 Severely Decreased Stage V GFR <15 Very Little GFR Left ESRD GFR <15 on COOPERATIVE EXTENSION AGENT Procedures Description No Information Available Medical Devices Description No Information Available Encounters Type Date Location Provider Dx Diagnosis Office Visit 07/22/2020 3:00p [facility] ART Kaufman I10 Essential (primary) hyperten juliana E55.9 Vitamin D deficiency, unspec ified D64.9 Anemia, unspecified 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 Encounter for immunization Assessments Date Code Description Provider 10/22/2020 I10 Essential hypertension ART Kaufman 10/22/2020 E55.9 Vitamin D deficiency, unspecifie d ART Kaufman 10/22/2020 D64.9 Anemia, unspecified ART Brand 10/22/2020 L63.0 Alopecia (capitis) totalART Wells 07/22/2020 I10 Essential hypertension ART Kaufman 07/22/2020 E55.9 Vitamin D deficiency, unspecifie d ART Kaufman 07/22/2020 D64.9 Anemia, unspecified ART Brand 07/22/2020 L63.0 Alopecia (capitis) totalART Wells 07/22/2020 Z23 Encounter for immunization ART Mart Plan of Treatment Future Appointment(s):* 01/28/2021 2:40 pm - ART Kaufman at [facility] 10/22/2020 - ART Kaufman* I10 Essential hypertension* New Labs:* Comprehensive Metabolic Profil, Scheduled: 01/20/21 * Lipid Panel, Scheduled: 01/20/21 * FT4&TSH Panel, Scheduled: 01/20/21 * Comments:* Blood pressure well controlled today. Continue medications as prescribed. * Follow up:* 3 months with me. * E55.9 Vitamin D deficiency, unspecified* New Labs:* Vitamin D 25-Hydroxy, Scheduled: 01/20/21 * Comments:* You are vitamin D deficient. We will prescribe you supplementation, and we will check your levels in the future. * D64.9 Anemia, unspecified* New Labs:* CBC With Differential, Scheduled: 01/20/21 * Comments:* We will check labs before you return. 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 Functional Status Description No Information Available Mental Status Description No Information Available Referrals Description No Information Available
--- NOTE | 2020-11-06 08:36 | ROOR ---
Patient Name: Rut Corea Procedure Date: 11/06/2020 8:15 AM Date of : 1970 Age: 50 Room: [facility] Gender: Female Note Status: Finalized Procedure: Colonoscopy Indications: Screening for colorectal malignant neoplasm Providers: Jaiden Sauceda Jr, MD Referring MD: Adilia HILL DO Requesting Provider: Medicines: Propofol per Anesthesia Complications: No immediate complications. Procedure: Pre-Anesthesia Assessment: - Prior to the procedure, a History and Physical was performed, and patient medications and allergies were reviewed. The patient is competent. The risks and benefits of the procedure and the sedation options and risks were discussed with the patient. All questions were answered and informed consent was obtained. Patient identification and proposed procedure were verified by the physician and the nurse in the pre-procedure area and in the procedure room. Mental Status Examination: alert and oriented. Airway Examination: normal oropharyngeal airway and neck mobility. Respiratory Examination: clear to auscultation. CV Examination: normal. ASA Grade Assessment: II - A patient with mild systemic disease. After reviewing the risks and benefits, the patient was deemed in satisfactory condition to undergo the procedure. The anesthesia plan was to use moderate sedation / analgesia (conscious sedation). Immediately prior to administration of medications, the patient was re-assessed for adequacy to receive sedatives. The heart rate, respiratory rate, oxygen saturations, blood pressure, adequacy of pulmonary ventilation, and response to care were monitored throughout the procedure. The physical status of the patient was re-assessed after the procedure. The Colonoscope was introduced through the anus and advanced to the cecum, identified by appendiceal orifice and ileocecal valve. The patient tolerated the procedure well. The quality of the bowel preparation was adequate. Findings: The rectum, recto-sigmoid colon, sigmoid colon, descending colon, transverse colon, ascending colon, cecum, appendiceal orifice and ileocecal valve appeared normal. Impression: - The rectum, recto-sigmoid colon, sigmoid colon, descending colon, transverse colon, ascending colon, cecum, appendiceal orifice and ileocecal valve are normal. - No specimens collected. Recommendation: - Discharge patient to home (ambulatory). - Repeat colonoscopy in 10 years for screening purposes. Procedure Code(s): --- Professional --- 24696, Colonoscopy, flexible; diagnostic, including collection of specimen(s) by brushing or washing, when performed (separate procedure) Diagnosis Code(s): --- Professional --- Z12.11, Encounter for screening for malignant neoplasm of colon CPT copyright 2019 [employer]. All rights reserved. The codes documented in this report are preliminary and upon operator vacuum review may be revised to meet current compliance requirements. Jaiden Sauceda MD Jaiden Sauceda Jr, MD 11/06/2020 8:36:06 AM Electronically signed by Jaiden Sauceda Jr, MD Number of Addenda: 0 Note Initiated On: 11/06/2020 8:15 AM Estimated Blood Loss: Estimated blood loss: none.
[2020-11-06 09:00] VITALS: BP 144/76
== END 2020-11-06 09:09 | disposition home or self-care (01) ==
LOC: M OPP 07:45
PROVIDERS: ATTEND Surgery
DX: Z12.11 Encounter for screening for malignant neoplasm of colon (principal); I10 Essential (primary) hypertension; D50.9 Iron deficiency anemia, unspecified; G47.30 Sleep apnea, unspecified; Z91.040 Latex allergy status; Z79.899 Other long term (current) drug therapy

== ENCOUNTER → 2021-01-20 | Outpatient (CLI) | payer OTHER ==
[~2021-01-20] MED LIST changes: -LIDOCAINE 2% 100MG/5ML SDV (FOR ANES.) As Ordered ONE; -NS 1,000 ML IV ONE; -propofoL 200 MG/20 ML VIAL As Ordered ONE
[2021-01-20 16:28] LABS: BASO # 0.1 10^3/uL (0.0-0.2); EOS # 0.1 10^3/uL (0.0-0.5); HEMATOCRIT 39.5 % (36.0-47.0); HEMOGLOBIN 12.9 g/dl (12.0-15.5); LYMPH # 2.6 10^3/uL (1.5-5.0); LYMPH % 43.1 % (24.0-44.0); MEAN CORPUSCULAR HEMOGLOBIN 29.9 pg (27.0-33.0); MEAN CORPUSCULAR HGB CONC 32.7 g/dl (32.0-36.5); MEAN CORPUSCULAR VOLUME 91.4 fl (80.0-96.0); MONO # 0.5 10^3/uL (0.0-0.8); MONO % 8.7 % (2.0-8.0); NEUTROPHILS # 2.8 10^3/uL (1.5-8.5); PLATELET COUNT, AUTOMATED 388 10^3/uL (150-450); RED BLOOD COUNT 4.32 10^6/uL (4.00-5.40); WHITE BLOOD COUNT 6.1 10^3/uL (4.0-10.0)
[2021-01-20 18:59] LABS: ALBUMIN 3.7 GM/DL (3.2-5.2); ALT/SGPT 22 U/L (12-78); BILIRUBIN,TOTAL 0.7 MG/DL (0.2-1.0); BLOOD UREA NITROGEN 9 MG/DL (7-18); CARBON DIOXIDE LEVEL 29 MEQ/L (21-32); CHLORIDE LEVEL 102 MEQ/L (98-107); CHOLESTEROL LEVEL 135 MG/DL (<200); CHOLESTEROL RISK RATIO 3.214 (<5); CREATININE FOR GFR 0.76 MG/DL (0.55-1.30); FREE T4 0.99 NG/DL (0.76-1.46); GLOMERULAR FILTRATION RATE > 60.0 (>51); GLUCOSE, FASTING 75 MG/DL (70-100); HDL CHOLESTEROL 42 MG/DL (>40); LDL CHOLESTEROL 83 MG/DL (<100); NON-HDL-C 93 MG/DL; POTASSIUM SERUM 4.1 MEQ/L (3.5-5.1); SODIUM LEVEL 135 MEQ/L (136-145); TOTAL 25(OH) VITAMIN D 35.6 NG/ML (30.0-100.0); TOTAL PROTEIN 7.5 GM/DL (6.4-8.2); TRIGLYCERIDES LEVEL 50 MG/DL (<150)
== END ==
LOC: M LAB 14:59
PROVIDERS: ATTEND Physician Assistant
DX: I10 Essential (primary) hypertension (principal); E55.9 Vitamin D deficiency, unspecified; D64.9 Anemia, unspecified

== ENCOUNTER → 2021-02-19 | Outpatient (CLI) | payer OTHER ==
--- NOTE | 2021-02-19 17:24 | ECGEPIP ---
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
[2021-02-19 18:08] LABS: BASO # 0.1 10^3/uL (0.0-0.2); BASO % 1.3 % (0.0-1.0); EOS # 0.2 10^3/uL (0.0-0.5); EOS % 2.7 % (0.0-3.0); HEMATOCRIT 39.3 % (36.0-47.0); HEMOGLOBIN 13.1 g/dl (12.0-15.5); LYMPH # 3.2 10^3/uL (1.5-5.0); LYMPH % 52.4 % (24.0-44.0); MEAN CORPUSCULAR HEMOGLOBIN 29.6 pg (27.0-33.0); MEAN CORPUSCULAR HGB CONC 33.3 g/dl (32.0-36.5); MEAN CORPUSCULAR VOLUME 88.9 fl (80.0-96.0); MONO # 0.6 10^3/uL (0.0-0.8); MONO % 10.1 % (2.0-8.0); NEUTROPHILS % 33.3 % (36.0-66.0); PLATELET COUNT, AUTOMATED 405 10^3/uL (150-450); RED BLOOD COUNT 4.42 10^6/uL (4.00-5.40)
[2021-02-19 18:25] LABS: SICKLE CELL SCREEN NEGATIVE (NEGATIVE)
[2021-02-19 18:36] LABS: BLOOD UREA NITROGEN 9 MG/DL (7-18); CALCIUM LEVEL 9.6 MG/DL (8.5-10.1); CARBON DIOXIDE LEVEL 31 MEQ/L (21-32); CHLORIDE LEVEL 102 MEQ/L (98-107); CREATININE FOR GFR 0.83 MG/DL (0.55-1.30); GLOMERULAR FILTRATION RATE > 60.0 (>51); GLUCOSE, FASTING 81 MG/DL (70-100); POTASSIUM SERUM 3.9 MEQ/L (3.5-5.1); SODIUM LEVEL 137 MEQ/L (136-145)
== END ==
LOC: M LAB 16:34
PROVIDERS: ATTEND Podiatrist
DX: M20.21 Hallux rigidus, right foot (principal); M79.671 Pain in right foot; R00.1 Bradycardia, unspecified

== ENCOUNTER → 2021-03-01 | Outpatient (CLI) | payer OTHER | LOC: M LABSMTC 10:39 | PROVIDERS: ATTEND Anesthesiology | DX: Z01.812 Encounter for preprocedural laboratory examination (principal); Z20.822 Contact with and (suspected) exposure to COVID-19 ==

== ENCOUNTER 2021-03-06 06:08 | Day surgery (SDC) | payer OTHER ==
[~2021-03-06] VITALS: Ht 160 cm; Wt 85.7 kg
[~2021-03-06 06:08] MED LIST changes: +LIDOCAINE 1% MDV 20ML VIAL SQ PRN; +LR 1,000 ML IV ONE; +ceFAZolin SOD 2 GM in IV 1 EA IV ONE
[2021-03-06] MEDS ORDERED: BUPIVACAINE HCL 0.5% 30 ML VIAL As Ordered ONE (06:49)
[2021-03-06] MEDS ORDERED: dexameTHASONE 4 MG/ML 1ML VIAL (J1100 PER 1MG) As Ordered ONE (06:50)
[2021-03-06] MEDS ORDERED: BACITRACIN PWD 50,000 UNITS VIAL As Ordered ONE (06:50)
[2021-03-06] MEDS ORDERED: NEOSPORIN GU IRRIG 20 ML VIAL As Ordered ONE (06:50)
[2021-03-06] MEDS ORDERED: LIDOCAINE 2% MDV 20ML VIAL As Ordered ONE (06:50)
[2021-03-06] MEDS ORDERED: fentaNYL 100 MCG/2 ML INJECTION (J3010) As Ordered ONE (07:10)
[2021-03-06] MEDS ORDERED: MIDAZOLAM INJ 2MG/2ML VIAL (J2250 PER 1MG) As Ordered ONE (07:10)
[2021-03-06] MEDS ORDERED: LIDOCAINE 2% 100MG/5ML SDV (FOR ANES.) As Ordered ONE (07:11)
[2021-03-06] MEDS ORDERED: propofoL 200 MG/20 ML VIAL As Ordered ONE ×3 (07:11→08:48)
[2021-03-06] MEDS ORDERED: ACETAMINOPHEN 1000MG 100ML IV BTL (OFIRMEV) (J0131 PER 10MG) As Ordered ONE (07:51)
[2021-03-06] MEDS ORDERED: ONDANSETRON 4MG/2ML VIAL As Ordered ONE (07:55)
[2021-03-06] MEDS ORDERED: KETOROLAC 60MG 2ML VIAL As Ordered ONE (07:56)
[2021-03-06] MEDS ORDERED: LR 1,000 ML IV SCH (09:50)
[2021-03-06] MEDS ORDERED: ONDANSETRON 4MG/2ML VIAL IV PRN (09:50)
--- NOTE | 2021-03-06 09:58 | REP ---
INDICATION: CHILECTOMY COMPARISON: None. TECHNIQUE: Portable AP, lateral, oblique views of the right foot FINDINGS: Postsurgical changes at the 1st metatarsal bone are appreciated. Positioning/reduction at the surgical site requires evaluation. IMPRESSION: Postsurgical changes and positioning at the surgical site requires further investigation <Electronically signed by Selvin Navas > 03/06/21 0907
[2021-03-06] MEDS: oxyCODONE 5MG TAB PO PRN ×2 (10:16→10:51)
[2021-03-06 10:45] VITALS: BP 137/82
--- NOTE | 2021-03-06 15:46 | RO ---
OPERATIVE NOTE DATE OF OPERATION: 03/06/2021 PREOPERATIVE DIAGNOSIS: Hallux limitus with metatarsus primus varus deformity, right foot. POSTOPERATIVE DIAGNOSIS: Hallux limitus with metatarsus primus varus deformity, right foot. PROCEDURE: 1. Cheilectomy, first metatarsophalangeal joint, right foot. 2. First metatarsal osteotomy with rotation, plantarflexion and lateral displacement with internal screw fixation, 3.0 mm x 22 and a 3.0 mm x20, right foot. SURGEON: Power Sauceda DPM TEMPORARY RECEPTIONIST: None HARDWARE UTILIZED: Arthrex headless 3.0 x 22 and a 3.0 x 20 screw. ANESTHESIA: Local MAC. HEMOSTASIS: Ankle pneumatic tourniquet at 200 mmHg for 88 minutes. DESCRIPTION OF OPERATION: On 03/06/2021, this patient was taken from her hospital room and placed on the operating table in supine position. Following the induction of IV sedation and local and regional anesthesia, the right lower extremity was prepped and draped in the usual aseptic manner. Attention was directed to the patient's right foot where the following procedure was performed. Cheilectomy, first metatarsophalangeal joint, right foot. Attention was directed to the patient's right foot where was noted to be spurring over the dorsal aspect of the first metatarsal and the hallux deformity. At this time, a 6 cm incision was placed over the first metatarsophalangeal joint of the right foot medial to the extensor tendon. The incision was deepened through the subcutaneous tissues and all crossing venous tributaries were identified, underscored, clamped, cut, ligated or electrocoagulated as necessary A linear capsulotomy was performed in the same plane as the original skin incision. The capsule and periosteal structures were then dissected free in one continuous layer. This brought into view the hypertrophied medial eminence of the first metatarsal as well as some spurring over the dorsal aspect of the first metatarsal. Utilizing a sagittal saw, an osteotomy was performed through the dorsal head of the first metatarsal encompassing the dorsal spurring. The medial eminence was similarly osteotomized from dorsal to proximal [id number], exiting medial to the sesamoidal groove. Some minor arthritic change was noted on the plantar medial aspect of the first metatarsal head measuring approximately 2-3 mm in diameter. Attention was then directed to the first metatarsal where the following procedure was performed. First metatarsal osteotomy with plantar flexion, lateral position and rotation, first metatarsal with internal screw fixation, 3.0 mm x 22 mm and a 3.0 x 20 mm, right foot. Attention was directed to the first metatarsal where an osteotomy was performed just proximal to the plantar cartilage. A K-wire was then utilized as a joystick to manipulate the first metatarsal head after the osteotomy was completed. The first metatarsal was transposed in a lateral position. It was slightly plantarflexed 2 mm and then a varus position rotation was placed onto the metatarsal head with a C-arm directly over the first metatarsal rotating until the sesamoids came into a more anatomic position. K-wire was then temporarily driven across the first metatarsal. Two screws were then placed across the metatarsal. Initially a 3.0 x 22 and a 3.0 x 22 mm were placed. However, the more lateral screw due to the orientation and pitch provided good dorsiflexion resistance, however, with plantarflexion of the metatarsal head, the osteotomy was unstable. Therefore the screw was removed and a more parallel screw was then placed. This required the screw to be shortened to 20 mm in length. This provided good fixation of the first metatarsal to both the dorsal and plantar force. The wound was flushed with copious amounts of dilute Bacitracin, bacitracin, neomycin and polymyxin B solution. The redundant cortical spike was then osteotomized. The hallux was brought through a range of motion. Intraoperative C-arm images revealed good position of the first metatarsal. However, since the toe was plantarflexed, laterally displaced and rotated, it changed the dorsiflexion of the hallux to a more normal position in a more dorsal and plantar plane. Attention was directed towards closure where the capsular structures were coapted and maintained utilizing 2-0 Monocryl in a simple interrupted type fashion. The subcutaneous tissue was coapted and maintained utilizing 4-0 Monocryl in a simple interrupted type fashion. The skin incision was coapted and maintained utilizing 4-0 Monocryl in a continuous subcuticular type fashion. This was reinforced with Steri-Strips. Attention was directed towards bandaging where a sterile compressive bandage was applied consisting of Adaptic, 4x4s, 4x4 splints, Harley, Kerlix and Coban. The ankle pneumatic tourniquet was rapidly deflated and instantaneous capillary filling time was noted to digits 1-5 of the patient's right foot. The patient apparently tolerated the surgical procedure well and was taken from the OR to the recovery room for further monitoring by the anesthesia department. Postoperative instructions were given upon discharge. [place]
== END 2021-03-06 11:55 | disposition home or self-care (01) ==
LOC: M SDC 06:08
PROVIDERS: ATTEND Podiatrist
DX: M20.21 Hallux rigidus, right foot (principal); M79.671 Pain in right foot; I10 Essential (primary) hypertension; D64.9 Anemia, unspecified; Z91.040 Latex allergy status; G47.33 Obstructive sleep apnea (adult) (pediatric); Z79.899 Other long term (current) drug therapy
CPT/HCPCS: 28289; 28296; 73630; 76000; 88300; C1713; J0131; J0690; J1100; J1885; J2250; J2405; J3010

== ENCOUNTER → 2021-04-25 | Outpatient (CLI) | payer OTHER ==
[~2021-04-25] MED LIST changes: -LIDOCAINE 1% MDV 20ML VIAL SQ PRN; -LR 1,000 ML IV ONE; -ceFAZolin SOD 2 GM in IV 1 EA IV ONE
[2021-04-25 09:37] LABS: BASO # 0.1 10^3/uL (0.0-0.2); EOS # 0.1 10^3/uL (0.0-0.5); HEMATOCRIT 36.4 % (36.0-47.0); HEMOGLOBIN 11.8 g/dl (12.0-15.5); LYMPH # 2.2 10^3/uL (1.5-5.0); MEAN CORPUSCULAR HEMOGLOBIN 29.6 pg (27.0-33.0); MEAN CORPUSCULAR HGB CONC 32.4 g/dl (32.0-36.5); MEAN CORPUSCULAR VOLUME 91.2 fl (80.0-96.0); MONO # 0.5 10^3/uL (0.0-0.8); MONO % 8.5 % (2.0-8.0); NEUTROPHILS % 51.3 % (36.0-66.0); PLATELET COUNT, AUTOMATED 403 10^3/uL (150-450); RED BLOOD COUNT 3.99 10^6/uL (4.00-5.40); WHITE BLOOD COUNT 5.8 10^3/uL (4.0-10.0)
[2021-04-25 10:13] LABS: ALBUMIN 3.5 GM/DL (3.2-5.2); ALT/SGPT 20 U/L (12-78); BILIRUBIN,TOTAL 0.3 MG/DL (0.2-1.0); BLOOD UREA NITROGEN 9 MG/DL (7-18); CARBON DIOXIDE LEVEL 32 MEQ/L (21-32); CHLORIDE LEVEL 106 MEQ/L (98-107); CHOLESTEROL LEVEL 135 MG/DL (<200); CREATININE FOR GFR 0.84 MG/DL (0.55-1.30); GLOMERULAR FILTRATION RATE > 60.0 (>51); GLUCOSE, FASTING 101 MG/DL (70-100); HDL CHOLESTEROL 34 MG/DL (>40); LDL CHOLESTEROL 95 MG/DL (<100); NON-HDL-C 101 MG/DL; POTASSIUM SERUM 3.9 MEQ/L (3.5-5.1); SODIUM LEVEL 141 MEQ/L (136-145); TOTAL PROTEIN 7.5 GM/DL (6.4-8.2); TRIGLYCERIDES LEVEL 32 MG/DL (<150)
[2021-04-27 10:42] LABS: TOTAL 25(OH) VITAMIN D 33.5 NG/ML (30.0-100.0)
== END ==
LOC: M LAB 09:11
PROVIDERS: ATTEND Physician Assistant
DX: I10 Essential (primary) hypertension (principal); E55.9 Vitamin D deficiency, unspecified; G47.33 Obstructive sleep apnea (adult) (pediatric)

== ENCOUNTER 2021-08-30 12:57 | Emergency (ER) | payer OTHER ==
[~2021-08-30] VITALS: Ht 160 cm; Wt 88.0 kg
[2021-08-30 12:58] VITALS: BP 148/79
--- OUTSIDE RECORDS SUMMARY | 2021-08-30 13:10 | CCD | Continuity of Care Document ---
Author Author [facility] Organization Unknown Address [address] [place] [address] 6 [address] [place] [address] Phone [phone] Care Team Providers Care Toll Collector Supervisor Name Role Phone Adilia Kaur D.O. AUTM [phone] Jaiden Sauceda M.D. AUTM [phone] Problems Active Problems Provider Date Essential hypertension [...] Use Denies Drug Use Smoking Status Reviewed: 04/27/21 Patient has never smoked Exercise Type/Frequency Does not exercise Sun Exposure Uses sunscreen Seat Belt/Car Seat Always uses seat belt Allergies and adverse reactions Description No Known Drug Allergies Medications Active Medications SIG Qnty Indications Ordering Provide r Date Betamethasone Dipropionate/Minoxidil 0.05-5% Solution 1 apply to affected area nightly at bedtime 60gm L63. 0 Adilia Fitch D.O. 10/22/2020 Hydrochlorothiazide 25mg Tablets 1 by mouth every day 90tabs I10 Adilia Kaur D.O. 06/18 Amlodipine Besylate 10mg Tablets 1 by [...] CPT Code Status Date Vaccine Lot # [id number] Given 07/13/2021 Influenza Virus Vaccine, Quadrivalent, [place] 57786 Given 07/13/2021 Influenza Virus Vaccine, Quadrivalent, Slit Virus, Im Use [id number] Given 07/22/2020 Influenza Virus Vaccine, Quadrivalent, Split, Preservative Free [id number] Given 06/18/2019 Influenza Virus Vaccine, Quadrivalent, Split, Preservative Free [id number] Vital Signs Date Vital Result Comment 04/27/2021 2:44pm BP Systolic 134 mmHg BP Diastolic 78 mmHg Height 63.7 inches 5'3.70" Weight 188.25 lb BMI (Body Mass Index) 32.6 kg/m2 Heart Rate 92 /min Respiratory Rate 18 /min Body Temperature 98.2 F O2 % BldC Oximetry 98 % [place] Body Weight 115 lb 01/28/2021 2:46pm BP Systolic 142 mmHg BP Diastolic 82 mmHg Height 63.7 inches 5'3.70" Weight 194.00 lb BMI (Body Mass Index) 33.6 kg/m2 Heart Rate 69 /min Respiratory Rate 20 /min Body Temperature 97.8 F O2 % BldC Oximetry 98 % [place] Body Weight 115 lb Results Test Acquired Date Facility Test Result H/L Range Note Comprehensive Metabolic Profil 04/25/2021 [facility] Outpa tient Testing (Registration) [address] [place] [address] [phone] Glucose, Fasting 101 mg/dL High 70-100 Blood Urea Nitrogen 9 mg/dL Normal 7-18 Creatinine For GFR 0.84 mg/dL Normal 0.55-1.30 Glomerular Filtration Rate > 60.0 Normal >51 1 Sodium Level 141 mEq/L Normal 136-145 Potassium Serum 3.9 mEq/L Normal 3.5-5.1 Chloride Level 106 mEq/L Normal 98-107 Carbon Dioxide Level 32 mEq/L Normal 21-32 Anion Gap 3 mEq/L Low 8-16 Calcium Level 9.0 mg/dL Normal 8.5-10.1 Ast/Sgot 16 U/L Normal 7-37 Alt/SGPT 20 U/L Normal 12-78 Alkaline Phosphatase 83 U/L Normal 45-117 Bilirubin,Total 0.3 mg/dL Normal 0.2-1.0 Total Protein 7.5 GM/DL Normal 6.4-8.2 Albumin 3.5 GM/DL Normal 3.2-5.2 Albumin/Globulin Ratio 0.9 Low 1.2-2.2 FT4&TSH Panel 04/25/2021 [facility] Outpatient Testi bibiana (Registration) [address] [place] [address] [phone] Thyroid Stimulating Hormone 1.570 uIU/ML Normal 0. 358-3.740 Free T4 1.00 ng/dL Normal 0.76-1.46 Lipid Panel 04/25/2021 [facility] Outpatient Testi ng (Registration) [address] [place] [address] [phone] Triglycerides Level 32 mg/dL Normal <150 Cholesterol Level 135 mg/dL Normal <200 HDL Cholesterol 34 mg/dL Low >40 LDL Cholesterol 95 mg/dL Normal <100 Non-HDL-C 101 mg/dL Normal Cholesterol Risk Ratio 3.970 Normal <5 CBC With Differential 04/25/2021 [facility] Outpatient Vanna garzag (Registration) [address] [place] [phone] [phone] White Blood Count 5.8 10 Normal 4.0-10.0 Red Blood Count 3.99 10 Low 4.00-5.40 Hemoglobin 11.8 g/dL Low 12.0-15.5 Hematocrit 36.4 % Normal 36.0-47.0 Mean Corpuscular Volume 91.2 fl Normal 80.0-96.0 Mean Corpuscular Hemoglobin 29.6 pg Normal 27.0-33.0 Mean Corpuscular HGB Conc 32.4 g/dL Normal 32.0-36.5 Red Cell Distribution Width 12.7 % Normal 11.5-14.5 Platelet Count, Automated 403 10 Normal 150-450 Neutrophils % 51.3 % Normal 36.0-66.0 Lymph % 38.0 % Normal 24.0-44.0 Walton % 8.5 % High 2.0-8.0 Eos % 1.0 % Normal 0.0-3.0 Baso % 1.0 % Normal 0.0-1.0 Immature Granulocyte % 0.2 % Normal 0-3.0 Nucleated Red Blood Cell % 0.0 % Normal 0-0 Neutrophils # 3.0 10 Normal 1.5-8.5 Lymph # 2.2 10 Normal 1.5-5.0 Walton # 0.5 10 Normal 0.0-0.8 Eos # 0.1 10 Normal 0.0-0.5 Baso # 0.1 10 Normal 0.0-0.2 Laboratory test finding 04/25/2021 [facility] Outpatient T willard (Registration) [address] [place] [address] [phone] Total 25(Oh) Vitamin D 33.5 NG/ML Normal 30.0-100. 0 CBC With Differential 02/19/2021 [facility] Outpatient Vanna saud (Registration) [address] [place] [address] [phone] White Blood Count 6.0 10 Normal 4.0-10.0 Red Blood Count 4.42 10 Normal 4.00-5.40 Hemoglobin 13.1 g/dL Normal 12.0-15.5 Hematocrit 39.3 % Normal 36.0-47.0 Mean Corpuscular Volume 88.9 fl Normal 80.0-96.0 Mean Corpuscular Hemoglobin 29.6 pg Normal 27.0-33.0 Mean Corpuscular HGB Conc 33.3 g/dL Normal 32.0-36.5 Red Cell Distribution Width 12.4 % Normal 11.5-14.5 Platelet Count, Automated 405 10 Normal 150-450 Neutrophils % 33.3 % Low 36.0-66.0 Lymph % 52.4 % High 24.0-44.0 Walton % 10.1 % High 2.0-8.0 Eos % 2.7 % Normal 0.0-3.0 Baso % 1.3 % High 0.0-1.0 Immature Granulocyte % 0.2 % Normal 0-3.0 Nucleated Red Blood Cell % 0.0 % Normal 0-0 Neutrophils # 2.0 10 Normal 1.5-8.5 Lymph # 3.2 10 Normal 1.5-5.0 Walton # 0.6 10 Normal 0.0-0.8 Eos # 0.2 10 Normal 0.0-0.5 Baso # 0.1 10 Normal 0.0-0.2 Laboratory test finding 02/19/2021 [facility] Outpatient T esting (Registration) [address] [place] [address] [phone] Sickle Cell Screen NEGATIVE Normal Negative Basic Metabolic Profile 02/19/2021 [facility] Outpatient T esting (Registration) [address] [place] [address] [phone] Glucose, Fasting 81 mg/dL Normal 70-100 Blood Urea Nitrogen 9 mg/dL Normal 7-18 Creatinine For GFR 0.83 mg/dL Normal 0.55-1.30 Glomerular Filtration Rate > 60.0 Normal >51 2 Sodium Level 137 mEq/L Normal 136-145 Potassium Serum 3.9 mEq/L Normal 3.5-5.1 Chloride Level 102 mEq/L Normal 98-107 Carbon Dioxide Level 31 mEq/L Normal 21-32 Anion Gap 4 mEq/L Low 8-16 Calcium Level 9.6 mg/dL Normal 8.5-10.1 Comprehensive Metabolic Profil 01/20/2021 [facility] Outpa tient Testing (Registration) [address] [place] [address] [phone] Glucose, Fasting 75 mg/dL Normal 70-100 Blood Urea Nitrogen 9 mg/dL Normal 7-18 Creatinine For GFR 0.76 mg/dL Normal 0.55-1.30 Glomerular Filtration Rate > 60.0 Normal >51 3 Sodium Level 135 mEq/L Low 136-145 Potassium Serum 4.1 mEq/L Normal 3.5-5.1 Chloride Level 102 mEq/L Normal 98-107 Carbon Dioxide Level 29 mEq/L Normal 21-32 Anion Gap 4 mEq/L Low 8-16 Calcium Level 9.0 mg/dL Normal 8.5-10.1 Ast/Sgot 13 U/L Normal 7-37 Alt/SGPT 22 U/L Normal 12-78 Alkaline Phosphatase 65 U/L Normal 45-117 Bilirubin,Total 0.7 mg/dL Normal 0.2-1.0 Total Protein 7.5 GM/DL Normal 6.4-8.2 Albumin 3.7 GM/DL Normal 3.2-5.2 Albumin/Globulin Ratio 1.0 Low 1.2-2.2 Lipid Panel 01/20/2021 [facility] Outpatient Testi ng (Registration) [address] [place] [address] [phone] Triglycerides Level 50 mg/dL Normal <150 Cholesterol Level 135 mg/dL Normal <200 HDL Cholesterol 42 mg/dL Normal >40 LDL Cholesterol 83 mg/dL Normal <100 Non-HDL-C 93 mg/dL Normal Cholesterol Risk Ratio 3.214 Normal <5 FT4&TSH Panel 01/20/2021 [facility] Outpatient Testi ng (Registration) [address] [place] [address] [phone] Thyroid Stimulating Hormone 1.600 uIU/ML Normal 0. 358-3.740 Free T4 0.99 ng/dL Normal 0.76-1.46 Laboratory test finding 01/20/2021 [facility] Outpatient T esting (Registration) [address] [place] [address] [phone] Total 25(Oh) Vitamin D 35.6 NG/ML Normal 30.0-100. 0 CBC With Differential 01/20/2021 [facility] Outpatient Vanna ting (Registration) [address] [place] [address] 95322 [phone] White Blood Count 6.1 10 Normal 4.0-10.0 Red Blood Count 4.32 10 Normal 4.00-5.40 Hemoglobin 12.9 g/dL Normal 12.0-15.5 Hematocrit 39.5 % Normal 36.0-47.0 Mean Corpuscular Volume 91.4 fl Normal 80.0-96.0 Mean Corpuscular Hemoglobin 29.9 pg Normal 27.0-33.0 Mean Corpuscular HGB Conc 32.7 g/dL Normal 32.0-36.5 Red Cell Distribution Width 12.8 % Normal 11.5-14.5 Platelet Count, Automated 388 10 Normal 150-450 Neutrophils % 46.0 % Normal 36.0-66.0 Lymph % 43.1 % Normal 24.0-44.0 Walton % 8.7 % High 2.0-8.0 Eos % 1.0 % Normal 0.0-3.0 Baso % 1.0 % Normal 0.0-1.0 Immature Granulocyte % 0.2 % Normal 0-3.0 Nucleated Red Blood Cell % 0.0 % Normal 0-0 Neutrophils # 2.8 10 Normal 1.5-8.5 Lymph # 2.6 10 Normal 1.5-5.0 Walton # 0.5 10 Normal 0.0-0.8 Eos # 0.1 10 Normal 0.0-0.5 Baso # 0.1 10 Normal 0.0-0.2 1 Units are mL/min/1.73 m2 Chronic Kidney Disease Staging per NKF: Stage I & II GFR >=60 Normal to Mildly Decreased Stage III GFR 30-59 Moderately Decreased Stage IV GFR 15-29 Severely Decreased Stage V GFR <15 Very Little GFR Left ESRD GFR <15 on GEOTHERMAL OPERATIONS ENGINEER 2 Units are mL/min/1.73 m2 Chronic Kidney Disease Staging per NKF: Stage I & II GFR >=60 Normal to Mildly Decreased Stage III GFR 30-59 Moderately Decreased Stage IV GFR 15-29 Severely Decreased Stage V GFR <15 Very Little GFR Left ESRD GFR <15 on GEOTHERMAL OPERATIONS ENGINEER 3 Units are mL/min/1.73 m2 Chronic Kidney Disease Staging per NKF: Stage I & II GFR >=60 Normal to Mildly Decreased Stage III GFR 30-59 Moderately Decreased Stage IV GFR 15-29 Severely Decreased Stage V GFR <15 Very Little GFR Left ESRD GFR <15 on GEOTHERMAL OPERATIONS ENGINEER Procedures Date Code Description Status 04/27/2021 37113 Preventive Visit Est 40-64 Yrs C ompleted 01/28/2021 28692 Office/Outpatient Established Mo d MDM 30-39 Min Completed Medical Devices Description No Information Available Encounters Type Date Location Provider Dx Diagnosis Office Visit 04/27/2021 2:40p Family Medicine [facility] ART Guy Z00.00 Encntr for general adult med ical exam w/o abnormal findings Office Visit 01/28/2021 2:40p Family [facility] ART Guy I10 Essential (primary) hyperten juliana E55.9 Vitamin D deficiency, unspec ified D64.9 Anemia, unspecified 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 at [facility] 04/27/2021 - ART Kaufman* Z00.00 Encounter for general adult medical examination without abnormal findings* New Labs:* Comprehensive Metabolic Profil, Scheduled: 10/28/21 * CBC With Differential, Scheduled: 10/28/21 * Lipid Panel, Scheduled: 10/28/21 * Comments:* Your exam was unremarkable today. We will refer you back to [facility] Nurse practitioners for skin tag removal. Call for any concerns. * Referral:* Libia Walls NP, Nurse Practitioner * Follow up:* [address] Rinaldi. Functional Status Description No Information Available Mental Status Description No Information Available Referrals Refer to Reason for Referral Status Appt Date [facility] Home Sleep Study 51 year old female with hist ory of previously diagnosed sleep apnea which had resolved with weight loss. She has again gained weight, and is having non-restorative sleep and daytime fatigue. Eval for sleep apnea. [facility] [address] [place] [address] Libia Walls NP 51 year old female, known to your practice, with several skin tags that she would like removed. Please eval and treat. Closed [facility] Nurse Practioners [address], [address] [facility] [address] [place] [address] [phone]
--- OUTSIDE RECORDS SUMMARY | 2021-08-30 13:10 | CCD ---
Continuity of Care Document (CCD) Created on: 07/13/2021 [facility] External Reference #: [id number] : 1970 Sex: Female Author Author [facility] Organization Unknown Address [address] [place] [address] [address] [place] [address] Phone [phone] Care Team Providers Care Children'S Nursery Assistant Name Role Phone Adilia Kaur D.O. AUTM Jaiden Sauceda M.D. AUTM [phone] Problems Active Problems Provider Date Essential hypertension [...] CPT Code Status Date Vaccine Lot # [id number] Given 07/13/2021 Influenza Virus Vaccine, Quadrivalent, Slit Virus, [place] Use 99449 Given 07/13/2021 Influenza Virus Vaccine, Quadrivalent, Slit Virus, Im Use [id number] Given 07/22/2020 Influenza Virus Vaccine, Quadrivalent, Split, Preservative Free [id number] Given 06/18/2019 Influenza Virus Vaccine, Quadrivalent, Split, Preservative Free [id number] Vital Signs Date Vital Result Comment 04/27/2021 2:44pm BP Systolic 134 mmHg BP Diastolic 78 mmHg Height 63.7 inches 5'3.70" Weight 188.25 lb BMI (Body Mass Index) 32.6 kg/m2 Heart Rate 92 /min Respiratory Rate 18 /min Body Temperature 98.2 F O2 % BldC Oximetry 98 % [place] Body Weight 115 lb 01/28/2021 2:46pm BP Systolic 142 mmHg BP Diastolic 82 mmHg Height 63.7 inches 5'3.70" Weight 194.00 lb BMI (Body Mass Index) 33.6 kg/m2 Heart Rate 69 /min Respiratory Rate 20 /min Body Temperature 97.8 F O2 % BldC Oximetry 98 % [place] Body Weight 115 lb Results Test Acquired Date Facility Test Result H/L Range Note Comprehensive Metabolic Profil 04/25/2021 [facility] Outpa tient Testing (Registration) [address] [place] [address] [phone] Glucose, Fasting 101 mg/dL High 70-100 Blood [...] Ratio 0.9 Low 1.2-2.2 FT4&TSH Panel 04/25/2021 [facility] Outpatient Testi bibiana (Registration) [address] [place] [address] [phone] Thyroid Stimulating Hormone 1.570 uIU/ML Normal 0. 358-3.740 Free T4 1.00 ng/dL Normal 0.76-1.46 Lipid Panel 04/25/2021 [facility] Outpatient Testi ng (Registration) [address] [place] [phone] Triglycerides Level 32 mg/dL Normal <150 Cholesterol Level 135 mg/dL Normal <200 HDL Cholesterol 34 mg/dL Low >40 LDL Cholesterol 95 mg/dL Normal <100 Non-HDL-C 101 mg/dL Normal Cholesterol Risk Ratio 3.970 Normal <5 CBC With Differential 04/25/2021 [facility] Outpatient Vanna garzag (Registration) [address] [place] [phone] White Blood Count 5.8 10 Normal 4.0-10.0 [...] 36.0-66.0 Lymph % 38.0 % Normal 24.0-44.0 Bowman % 8.5 % High 2.0-8.0 Eos % 1.0 % Normal 0.0-3.0 Baso % 1.0 % Normal 0.0-1.0 Immature Granulocyte % 0.2 % Normal 0-3.0 Nucleated Red Blood Cell % 0.0 % Normal 0-0 Neutrophils # 3.0 10 Normal 1.5-8.5 Lymph # 2.2 10 Normal 1.5-5.0 Bowman # 0.5 10 Normal 0.0-0.8 Eos # 0.1 10 Normal 0.0-0.5 Baso # 0.1 10 Normal 0.0-0.2 Laboratory test finding 04/25/2021 [facility] Outpatient T willard (Registration) [address] [place] [address] [phone] Total 25(Oh) Vitamin D 33.5 NG/ML Normal 30.0-100. 0 CBC With Differential 02/19/2021 [facility] Outpatient Vanna saud (Registration) [address] [place] [address] [phone] White Blood Count 6.0 10 Normal 4.0-10.0 [...] 36.0-66.0 Lymph % 52.4 % High 24.0-44.0 Bowman % 10.1 % High 2.0-8.0 Eos % 2.7 % Normal 0.0-3.0 Baso % 1.3 % High 0.0-1.0 Immature Granulocyte % 0.2 % Normal 0-3.0 Nucleated Red Blood Cell % 0.0 % Normal 0-0 Neutrophils # 2.0 10 Normal 1.5-8.5 Lymph # 3.2 10 Normal 1.5-5.0 Bowman # 0.6 10 Normal 0.0-0.8 Eos # 0.2 10 Normal 0.0-0.5 Baso # 0.1 10 Normal 0.0-0.2 Laboratory test finding 02/19/2021 [facility] Outpatient T esting (Registration) [address] [place] [phone] Sickle Cell Screen NEGATIVE Normal Negative Basic Metabolic Profile 02/19/2021 [facility] Outpatient T esting (Registration) [address] [place] [phone] Glucose, Fasting 81 mg/dL Normal 70-100 Blood [...] mg/dL Normal 8.5-10.1 Comprehensive Metabolic Profil 01/20/2021 [facility] Outpa tient Testing (Registration) [address] [place] [phone] Glucose, Fasting 75 mg/dL Normal 70-100 Blood [...] Ratio 1.0 Low 1.2-2.2 Lipid Panel 01/20/2021 [facility] Outpatient Testi ng (Registration) [address] [place] [address] [phone] Triglycerides Level 50 mg/dL Normal <150 Cholesterol Level 135 mg/dL Normal <200 HDL Cholesterol 42 mg/dL Normal >40 LDL Cholesterol 83 mg/dL Normal <100 Non-HDL-C 93 mg/dL Normal Cholesterol Risk Ratio 3.214 Normal <5 FT4&TSH Panel 01/20/2021 [facility] Outpatient Testi ng (Registration) [address] [place] [phone] Thyroid Stimulating Hormone 1.600 uIU/ML Normal 0. 358-3.740 Free T4 0.99 ng/dL Normal 0.76-1.46 Laboratory test finding 01/20/2021 [facility] Outpatient T esting (Registration) [address] [place] [address] [phone] Total 25(Oh) Vitamin D 35.6 NG/ML Normal 30.0-100. 0 CBC With Differential 01/20/2021 [facility] Outpatient Vanna ting (Registration) [address] [place] [address] [phone] White Blood Count 6.1 10 Normal 4.0-10.0 [...] 36.0-66.0 Lymph % 43.1 % Normal 24.0-44.0 Bowman % 8.7 % High 2.0-8.0 Eos % 1.0 % Normal 0.0-3.0 Baso % 1.0 % Normal 0.0-1.0 Immature Granulocyte % 0.2 % Normal 0-3.0 Nucleated Red Blood Cell % 0.0 % Normal 0-0 Neutrophils # 2.8 10 Normal 1.5-8.5 Lymph # 2.6 10 Normal 1.5-5.0 Bowman # 0.5 10 Normal 0.0-0.8 Eos # 0.1 10 Normal 0.0-0.5 Baso # 0.1 10 Normal 0.0-0.2 1 Units are mL/min/1.73 m2 Chronic Kidney Disease Staging per NKF: Stage I & II GFR >=60 Normal to Mildly Decreased Stage III GFR 30-59 Moderately Decreased Stage IV GFR 15-29 Severely Decreased Stage V GFR <15 Very Little GFR Left ESRD GFR <15 on TANK TESTER 2 Units are mL/min/1.73 m2 Chronic Kidney Disease Staging per NKF: Stage I & II GFR >=60 Normal to Mildly Decreased Stage III GFR 30-59 Moderately Decreased Stage IV GFR 15-29 Severely Decreased Stage V GFR <15 Very Little GFR Left ESRD GFR <15 on TANK TESTER 3 Units are mL/min/1.73 m2 Chronic Kidney Disease Staging per NKF: Stage I & II GFR >=60 Normal to Mildly Decreased Stage III GFR 30-59 Moderately Decreased Stage IV GFR 15-29 Severely Decreased Stage V GFR <15 Very Little GFR Left ESRD GFR <15 on TANK TESTER Procedures Date Code Description Status 04/27/2021 89873 Preventive Visit Est 40-64 Yrs C ompleted 01/28/2021 39150 Office/Outpatient Established Mo d MDM 30-39 Min Completed Medical Devices Description No Information Available Encounters Type Date Location Provider Dx Diagnosis Office Visit 04/27/2021 2:40p Family [facility] ART Guy Z00.00 Encntr for general adult med ical exam w/o abnormal findings Office Visit 01/28/2021 2:40p Family [facility] ART Guy I10 Essential (primary) hyperten juliana [...] 2:40 pm - Adilia Kaur D.O. at [facility] 04/27/2021 - ART Kaufman* Z00.00 Encounter for general adult medical examination without abnormal findings* New Labs:* Comprehensive Metabolic Profil, Scheduled: 10/28/21 * CBC With Differential, Scheduled: 10/28/21 * Lipid Panel, Scheduled: 10/28/21 * Comments:* Your exam was unremarkable today. We will refer you back to [facility] Nurse practitioners for skin tag removal. Call for any concerns. * Referral:* Libia Walls NP, Nurse Practitioner * Follow up:* [address] Rinaldi. Functional Status Description No Information Available Mental Status Description No Information Available Referrals Refer to Reason for Referral Status Appt Date [facility] Home Sleep Study 51 year old female with hist ory of previously diagnosed sleep apnea which had resolved with weight loss. She has again gained weight, and is having non-restorative sleep and daytime fatigue. Eval for sleep apnea. [facility] [address] [place] [address] Libia Walls NP 51 year old female, known to your practice, with several skin tags that she would like removed. Please eval and treat. Closed [facility] Nurse Practioners [address], [address] [facility] [address] [place] [address] [phone]
--- OUTSIDE RECORDS SUMMARY | 2021-08-30 13:10 | CCD | Continuity of Care Document ---
Author Author [facility] Organization Unknown Address [address] [place] [address] 6 [address] [place] [address] Phone [phone] Care Team Providers Care Wharf Builder Name Role Phone Adilia Kaur D.O. AUTM Jaiden Sauceda M.D. AUTM [phone] Problems Active Problems Provider Date Essential hypertension [...] CPT Code Status Date Vaccine Lot # [id number] Given 07/13/2021 Influenza Virus Vaccine, Quadrivalent, Slit Virus, Im Use [id number] Given 07/13/2021 Influenza Virus Vaccine, Quadrivalent, Slit Virus, Im Use [id number] Given 07/22/2020 Influenza Virus Vaccine, Quadrivalent, Split, Preservative Free [id number] Given 06/18/2019 Influenza Virus Vaccine, Quadrivalent, Split, Preservative Free [id number] Vital Signs Date Vital Result Comment 04/27/2021 2:44pm BP Systolic 134 mmHg BP Diastolic 78 mmHg Height 63.7 inches 5'3.70" Weight 188.25 lb BMI (Body Mass Index) 32.6 kg/m2 Heart Rate 92 /min Respiratory Rate 18 /min Body Temperature 98.2 F O2 % BldC Oximetry 98 % [place] Body Weight 115 lb 01/28/2021 2:46pm BP Systolic 142 mmHg BP Diastolic 82 mmHg Height 63.7 inches 5'3.70" Weight 194.00 lb BMI (Body Mass Index) 33.6 kg/m2 Heart Rate 69 /min Respiratory Rate 20 /min Body Temperature 97.8 F O2 % BldC Oximetry 98 % [place] Body Weight 115 lb Results Test Acquired Date Facility Test Result H/L Range Note Comprehensive Metabolic Profil 04/25/2021 [facility] Outpa tient Testing (Registration) [address] [place] [address] [phone] Glucose, Fasting 101 mg/dL High 70-100 Blood [...] Ratio 0.9 Low 1.2-2.2 FT4&TSH Panel 04/25/2021 [facility] Outpatient Testi bibiana (Registration) [address] [place] [address] [phone] Thyroid Stimulating Hormone 1.570 uIU/ML Normal 0. 358-3.740 Free T4 1.00 ng/dL Normal 0.76-1.46 Lipid Panel 04/25/2021 [facility] Outpatient Testi ng (Registration) [address] [place] [phone] Triglycerides Level 32 mg/dL Normal <150 Cholesterol Level 135 mg/dL Normal <200 HDL Cholesterol 34 mg/dL Low >40 LDL Cholesterol 95 mg/dL Normal <100 Non-HDL-C 101 mg/dL Normal Cholesterol Risk Ratio 3.970 Normal <5 CBC With Differential 04/25/2021 [facility] Outpatient Vanna garzag (Registration) [address] [place] [phone] White Blood Count 5.8 10 Normal 4.0-10.0 [...] 36.0-66.0 Lymph % 38.0 % Normal 24.0-44.0 Mcminn % 8.5 % High 2.0-8.0 Eos % 1.0 % Normal 0.0-3.0 Baso % 1.0 % Normal 0.0-1.0 Immature Granulocyte % 0.2 % Normal 0-3.0 Nucleated Red Blood Cell % 0.0 % Normal 0-0 Neutrophils # 3.0 10 Normal 1.5-8.5 Lymph # 2.2 10 Normal 1.5-5.0 Mcminn # 0.5 10 Normal 0.0-0.8 Eos # 0.1 10 Normal 0.0-0.5 Baso # 0.1 10 Normal 0.0-0.2 Laboratory test finding 04/25/2021 [facility] Outpatient T willard (Registration) [address] [place] [address] [phone] Total 25(Oh) Vitamin D 33.5 NG/ML Normal 30.0-100. 0 CBC With Differential 02/19/2021 [facility] Outpatient Vanna saud (Registration) [address] [place] [address] [phone] White Blood Count 6.0 10 Normal 4.0-10.0 [...] 36.0-66.0 Lymph % 52.4 % High 24.0-44.0 Mcminn % 10.1 % High 2.0-8.0 Eos % 2.7 % Normal 0.0-3.0 Baso % 1.3 % High 0.0-1.0 Immature Granulocyte % 0.2 % Normal 0-3.0 Nucleated Red Blood Cell % 0.0 % Normal 0-0 Neutrophils # 2.0 10 Normal 1.5-8.5 Lymph # 3.2 10 Normal 1.5-5.0 Mcminn # 0.6 10 Normal 0.0-0.8 Eos # 0.2 10 Normal 0.0-0.5 Baso # 0.1 10 Normal 0.0-0.2 Laboratory test finding 02/19/2021 [facility] Outpatient T esting (Registration) [address] [place] [address] [phone] Sickle Cell Screen NEGATIVE Normal Negative Basic Metabolic Profile 02/19/2021 [facility] Outpatient T esting (Registration) [address] [place] [phone] Glucose, Fasting 81 mg/dL Normal 70-100 Blood [...] mg/dL Normal 8.5-10.1 Comprehensive Metabolic Profil 01/20/2021 [facility] Outpa tient Testing (Registration) [address] [place] [phone] Glucose, Fasting 75 mg/dL Normal 70-100 Blood [...] Ratio 1.0 Low 1.2-2.2 Lipid Panel 01/20/2021 [facility] Outpatient Testi ng (Registration) [address] [place] [address] [phone] Triglycerides Level 50 mg/dL Normal <150 Cholesterol Level 135 mg/dL Normal <200 HDL Cholesterol 42 mg/dL Normal >40 LDL Cholesterol 83 mg/dL Normal <100 Non-HDL-C 93 mg/dL Normal Cholesterol Risk Ratio 3.214 Normal <5 FT4&TSH Panel 01/20/2021 [facility] Outpatient Testi ng (Registration) [address] [place] [address] [phone] Thyroid Stimulating Hormone 1.600 uIU/ML Normal 0. 358-3.740 Free T4 0.99 ng/dL Normal 0.76-1.46 Laboratory test finding 01/20/2021 [facility] Outpatient T esting (Registration) [address] [place] [address] [phone] Total 25(Oh) Vitamin D 35.6 NG/ML Normal 30.0-100. 0 CBC With Differential 01/20/2021 [facility] Outpatient Vanna ting (Registration) [address] [place] [phone] White Blood Count 6.1 10 Normal 4.0-10.0 [...] 36.0-66.0 Lymph % 43.1 % Normal 24.0-44.0 Mcminn % 8.7 % High 2.0-8.0 Eos % 1.0 % Normal 0.0-3.0 Baso % 1.0 % Normal 0.0-1.0 Immature Granulocyte % 0.2 % Normal 0-3.0 Nucleated Red Blood Cell % 0.0 % Normal 0-0 Neutrophils # 2.8 10 Normal 1.5-8.5 Lymph # 2.6 10 Normal 1.5-5.0 Mcminn # 0.5 10 Normal 0.0-0.8 Eos # 0.1 10 Normal 0.0-0.5 Baso # 0.1 10 Normal 0.0-0.2 1 Units are mL/min/1.73 m2 Chronic Kidney Disease Staging per NKF: Stage I & II GFR >=60 Normal to Mildly Decreased Stage III GFR 30-59 Moderately Decreased Stage IV GFR 15-29 Severely Decreased Stage V GFR <15 Very Little GFR Left ESRD GFR <15 on RADIO ANTENNA INSTALLER 2 Units are mL/min/1.73 m2 Chronic Kidney Disease Staging per NKF: Stage I & II GFR >=60 Normal to Mildly Decreased Stage III GFR 30-59 Moderately Decreased Stage IV GFR 15-29 Severely Decreased Stage V GFR <15 Very Little GFR Left ESRD GFR <15 on RADIO ANTENNA INSTALLER 3 Units are mL/min/1.73 m2 Chronic Kidney Disease Staging per NKF: Stage I & II GFR >=60 Normal to Mildly Decreased Stage III GFR 30-59 Moderately Decreased Stage IV GFR 15-29 Severely Decreased Stage V GFR <15 Very Little GFR Left ESRD GFR <15 on RADIO ANTENNA INSTALLER Procedures Date Code Description Status 04/27/2021 62590 Preventive Visit Est 40-64 Yrs C ompleted 01/28/2021 87676 Office/Outpatient Established Mo d MDM 30-39 Min Completed Medical Devices Description No Information Available Encounters Type Date Location Provider Dx Diagnosis Office Visit 04/27/2021 2:40p Family Medicine [facility] ART Guy Z00.00 Encntr for general adult med ical exam w/o abnormal findings Office Visit 01/28/2021 2:40p Family [facility] ART Guy I10 Essential (primary) hyperten [...] 2:40 pm - Adilia Kaur D.O. at [facility] 04/27/2021 - ART [place]* Z00.00 Encounter for general adult medical examination without abnormal findings* New Labs:* Comprehensive Metabolic Profil, Scheduled: 10/28/21 * CBC With Differential, Scheduled: 10/28/21 * Lipid Panel, Scheduled: 10/28/21 * Comments:* Your exam was unremarkable today. We will refer you back to [facility] Nurse practitioners for skin tag removal. Call for any concerns. * Referral:* Libia Walls NP, Nurse Practitioner * Follow up:* [address] Rinaldi. Functional Status Description No Information Available Mental Status Description No Information Available Referrals Refer to Reason for Referral Status Appt Date [facility] Home Sleep Study 51 year old female with hist ory of previously diagnosed sleep apnea which had resolved with weight loss. She has again gained weight, and is having non-restorative sleep and daytime fatigue. Eval for sleep apnea. [facility] [address] [place] [address] Libia Walls NP 51 year old female, known to your practice, with several skin tags that she would like removed. Please eval and treat. Closed [facility] [address], [address] [facility] [address] [place] [address] [phone]
--- OUTSIDE RECORDS SUMMARY | 2021-08-30 13:11 | CCD ---
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 Name Role Phone Jg Morales Unavailable Unavailable Jg Morales PA Unavailable Unavailable Jg Morales PA Unavailable Unavailable Jg Morales PA Unavailable Unavailable Jg Morales PA Unavailable Unavailable Jg Morales PA Unavailable Unavailable Jg Morales PA Unavailable Unavailable Jg Morales PA Unavailable Unavailable Jg Morales PA Unavailable Unavailable Jg Morales PA Unavailable Unavailable Jg Morales PA Unavailable Unavailable AndrewJg almodovar PA Unavailable Unavailable AndrewJg almodovar PA Unavailable Unavailable Andrew, Jg PA Unavailable Unavailable Andrew, Jg PA Unavailable Unavailable Andrew, Jg PA Unavailable Unavailable Andrew, Jg PA Unavailable Unavailable Andrew, Jg PA Unavailable Unavailable Andrew, Jg PA Unavailable Unavailable Andrew, Jg PA Unavailable Unavailable Andrew, Jg PA Unavailable Unavailable Andrew, Jg PA Unavailable Unavailable Andrew, Jg PA Unavailable Unavailable Andrew, Jg PA Unavailable Unavailable Andrwe, Jg PA Unavailable Unavailable Andrew, Jg PA [...] Unavailable Unavailable Andrew, Jg PA Unavailable Unavailable Andrwe, Jg PA Unavailable Unavailable Andrew, Jg PA [...] Unavailable Unavailable Andrew, Jg PA Unavailable Unavailable Re-disclosure Warning The records [...] protected by Article 27-F of the [facility] Public Health law. If you continue you may have access to information: Regarding HIV / AIDS; Provided by facilities licensed or operated by the [facility] Office of Mental Health; or Provided by the [facility] Office for People With Developmental Disabilities. If such information is present, then the following [facility] mandated warning applies: This information has [...] law may result in a fine or mcfp sentence or both. A general authorization for the release of medical or other information is NOT sufficient authorization for further disc losure. Family History Family Member Name Family Member Gender Family Member Status Date o f Status Description Data Source(s) Unknown Unknown Problem [facility] Unknown Unknown Problem [facility] ([facility]) father Unknown Female Problem [facility] ([facility]) Encounters Encounter Providers Location Date Indications Data Source(s ) Outpatient Attender: Jg CORDOVA [facility] 04/27/2021 02:40:00 PM EDT [facility] ([facility]) Outpatient Attender: Jg CORDOVA [facility] 01/28/2021 02:40:00 PM EDT [facility] ([facility]) Outpatient Attender: Jg CORDOVA [facility] 10/22/2020 02:00:00 PM EST [facility] ([facility]) Outpatient Attender: Jg CORDOVA [facility] 07/22/2020 03:00:00 PM EDT [facility] ([facility]) Immunizations Vaccine Date Status Description Data Source(s) New in 2012. IIV4 07/13/2021 04:58:00 PM EDT completed [facility] ([facility]) New in 2012. IIV4 07/13/2021 02:53:00 PM EDT completed [facility] ([facility]) COVID-19 VACCINE Pfizer 12/11/2020 12:00:00 AM EDT completed [facility] Vaccine Series Complete: NOThis Data was Submitted to [facility] Via [facility] in 2011. IIV4 07/22/2020 03:22:00 PM EDT completed [facility] ([facility]) Medications Medication Brand Name Start Date Product Form Dose Route Admi nistrative Instructions Pharmacy Instructions Status Indications Reaction Description Data Source(s) Betamethasone Dipropionate/Minoxidil 10/22/2020 12:00:00 AM EST TOPICAL active [facility] ([facility]) Shingrix Shingrix 09/25/2020 12:00:00 AM EST SUBCUTANEOUS completed [facility] ([facility]) Insurance Providers Payer name Policy type / Coverage type Policy ID Covered republican ID Covered republican's relationship to murphy Policy Murphy Plan Information [facility] [id number] [facility] [id number] ..[id number] .[id number] Self [id number] [facility] [id number] ...[id number] .[id number] Self [id number] [facility] [id number] ...[id number] .[id number] Self [id number] [facility] [id number] ..[id number] .[id number] Self [id number] [facility] [id number] ..[id number] .[id number] Self [id number] [facility] Commercial [id number] ..[id number] .[id number] Self [id number] [facility] [id number] ..[id number] .806.2936.0 Self [id number] [facility] Commercial [id number] Self [facility] [id number] [facility] [id number] Self [id number] [facility] [id number] [id number] .806.2936.0 Self [id number] [facility] Commercial [id number] .806.2936.0 Self [id number] [facility] [id number] .806.2936.0 Self [id number] [facility] [id number] .806.2936.0 Self [id number] [facility] [id number] .806.2936.0 Self [id number] [facility] [id number] [facility] [id number] SP [id number] [facility] [id number] [facility] [id number] [facility] [id number] ..[id number] Self [id number] [facility] [id number] S [id number] [facility] AT [facility] Health Maintenance Organization ([facility]) 00 [id number] Self [id number] [facility] [id number] Problems, Conditions, and Diagnoses No Information Surgeries/Procedures Procedure Description Date Indications Data Source(s) 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) PERIODIC PREVENTIVE MED EST PATIENT 40-64YRS 12:00:00 AM EDT [facility] ([facility]) OFFICE OUTPATIENT VISIT 25 MINUTES 01/28/2021 12:00:00 AM EDT [facility] ([facility]) Results ID Date Data Source [id number] 05/05/2021 04:30:00 PM EDT [facility] ([facility]) Name Value Range Interpretation Code Description Data Diane rce(s) Supporting Document(s) Laboratory test finding (navigational concept) Laboratory test result [facility] ([facility]) No further treatment necessary 8-19-21 L M on recorder Laboratory test finding (navigational concept) Laboratory test result [facility] ([facility]) No further treatment necessary 8-19-21 L M on recorder ID Date Data Source [id number] 05/05/2021 04:30:00 PM EDT [facility] ([facility]) Name Value Range Interpretation Code Description Data Diane rce(s) Supporting Document(s) Laboratory test finding (navigational concept) Laboratory test result [facility] ([facility]) ID Date Data Source [id number] 04/25/2021 09:20:00 AM EDT [facility] ([facility]) Name Value Range Interpretation Code Description Data Diane rce(s) Supporting Document(s) Calcidiol [Mass/volume] in Serum or Plasma 33.5 ng/mL 30.0- 100.0 Normal (applies to non-numeric results) [facility] ([facility]) ID Date Data Source [id number] 04/25/2021 09:20:00 AM EDT [facility] ([facility]) Name Value Range Interpretation Code Description Data Diane rce(s) Supporting Document(s) White Blood Count 5.8 10 4.0-10.0 Normal (applies to non-numeri c results) [facility] ([facility]) Hemoglobin 11.8 g/dL 12.0-15.5 Below low normal [facility] ( [facility]) Red Blood Count 3.99 10 4.00-5.40 Below low normal [facility] ([facility]) Mean Corpuscular Volume 91.2 fl 80.0-96.0 Normal ( applies to non-numeric results) [facility] ([facility]) Hematocrit 36.4 % 36.0-47.0 Normal (applies to non-numeric resul ts) [facility] ([facility]) Mean Corpuscular Hemoglobin 29.6 pg 27.0-33.0 Norm al (applies to non-numeric results) [facility] ([facility]) Mean Corpuscular HGB Conc 32.4 g/dL 32.0-36.5 Normal (applies to non-numeric results) [facility] ([facility]) Platelet Count, Automated 403 10 150-450 Normal (applies to non-numeric results) [facility] ([facility]) Red Cell Distribution Width 12.7 % 11.5-14.5 Norm al (applies to non-numeric results) [facility] ([facility]) Neutrophils % 51.3 % 36.0-66.0 Normal (applies to non-numeric re sults) [facility] ([facility]) [place] % 8.5 % 2.0-8.0 Above high normal [facility] ([facility]) Lymph % 38.0 % 24.0-44.0 Normal (applies to non-numeric resul ts) [facility] ([facility]) Eos % 1.0 % 0.0-3.0 Normal (applies to non-numeric resul ts) [facility] ([facility]) Immature Granulocyte % 0.2 % 0-3.0 Normal (applies to non-n umeric results) [facility] ([facility]) Baso % 1.0 % 0.0-1.0 Normal (applies to non-numeric resul ts) [facility] ([facility]) Neutrophils # 3.0 10 1.5-8.5 Normal (applies to non-numeric re sults) [facility] ([facility]) Nucleated Red Blood Cell % 0.0 % 0-0 Normal (applies to n on-numeric results) [facility] ([facility]) Eos # 0.1 10 0.0-0.5 Normal (applies to non-numeric resul ts) [facility] ([facility]) [place] # 0.5 10 0.0-0.8 Normal (applies to non-numeric resul ts) [facility] ([facility]) Lymph # 2.2 10 1.5-5.0 Normal (applies to non-numeric resul ts) [facility] ([facility]) Baso # 0.1 10 0.0-0.2 Normal (applies to non-numeric resul ts) [facility] ([facility]) ID Date Data Source [id number] 04/25/2021 09:20:00 AM EDT [facility] ([facility]) Name Value Range Interpretation Code Description Data Diane rce(s) Supporting Document(s) Triglycerides Level 32 mg/dL Normal (applies to non-nume young results) [facility] ([facility]) LDL Cholesterol 95 mg/dL Normal (applies to non-numeric results) [facility] ([facility]) HDL Cholesterol 34 mg/dL Below low normal [facility] ([facility]) Cholesterol Level 135 mg/dL Normal (applies to non-numeri c results) [facility] ([facility]) Cholesterol Risk Ratio 3.970 Normal (applies to non-n umeric results) [facility] ([facility]) Non-HDL-C 101 mg/dL Normal (applies to non-numeric resul ts) [facility] ([facility]) ID Date Data Source [id number] 04/25/2021 09:20:00 AM EDT [facility] ([facility]) Name Value Range Interpretation Code Description Data Diane rce(s) Supporting Document(s) Thyroid Stimulating Hormone 1.570 uIU/ML 0.358-3.740 Norm al (applies to non- numeric results) [facility] ([facility]) Free T4 1.00 ng/dL 0.76-1.46 Normal (applies to non-numeric resul ts) [facility] ([facility]) ID Date Data Source [id number] 04/25/2021 09:20:00 AM EDT [facility] ([facility]) Name Value Range Interpretation Code Description Data Diane rce(s) Supporting Document(s) Creatinine For GFR 0.84 mg/dL 0.55-1.30 Normal (applies to non -numeric results) [facility] ([facility]) Glucose, Fasting 101 mg/dL 70-100 Above high normal [facility] ([facility]) Blood Urea Nitrogen 9 mg/dL 7-18 Normal (applies to non-nume young results) [facility] ([facility]) Glomerular Filtration Rate Laboratory test result Normal (applies to non- numeric results) [facility] ([facility]) <content>Units are mL/min/1.73 m2</content>
<content></content>
<content>Chronic Kidney Disease Staging per NKF:</content>
<content></content>
<content>Stage I & II GFR >=60 Normal to Mildly Decreased</content>
<content>Stage III GFR 30- 59 Moderately Decreased</content>
<content>Stage IV GFR 15-29 Severely Decreased</content>
<content>Stage V GFR <15 Very Little GFR Left</content>
<content>ESRD GFR <15 on TRAFFIC SIGNAL SUPERVISOR MAINTENANCE</content>
<content></content> Sodium Level 141 meq/L 136-145 Normal (applies to non-numeric res ults) [facility] ([facility]) Potassium Serum 3.9 meq/L 3.5-5.1 Normal (applies to non-numeric results) [facility] ([facility]) Carbon Dioxide Level 32 meq/L 21-32 Normal (applies to non-num meño results) [facility] ([facility]) Chloride Level 106 meq/L 98-107 Normal (applies to non-numeric r esults) [facility] ([facility]) Anion Gap 3 meq/L 8-16 Below low normal [facility] Calcium Level 9.0 mg/dL 8.5-10.1 Normal (applies to non-numeric re sults) [facility] ([facility]) Alt/SGPT 20 U/L 12-78 Normal (applies to non-numeric resul ts) [facility] ([facility]) Ast/Sgot 16 U/L 7-37 Normal (applies to non-numeric resul ts) [facility] ([facility]) Total Protein 7.5 GM/DL 6.4-8.2 Normal (applies to non-numeric re sults) [facility] ([facility]) Alkaline Phosphatase 83 U/L 45-117 Normal (applies to non-num meño results) [facility] ([facility]) Bilirubin,Total 0.3 mg/dL 0.2-1.0 Normal (applies to non-numeric results) [facility] ([facility]) Albumin/Globulin Ratio 0.9 1.2-2.2 Below low normal [facility] ([facility]) Albumin 3.5 GM/DL 3.2-5.2 Normal (applies to non-numeric resul ts) [facility] ([facility]) ID Date Data Source [id number] 03/01/2021 10:50:00 AM EDT [facility] Name Value Range Interpretation Code Description Data Diane rce(s) Supporting Document(s) SARS-CoV-2 (COVID-19) RNA [Presence] in Respiratory specimen by JAROD with probe detection Not Detected [facility] This lab was ordered by [facility] and reported by [facility]. ID Date Data Source [id number] 02/19/2021 04:48:00 PM EDT [facility] ([facility]) Name Value Range Interpretation Code Description Data Diane rce(s) Supporting Document(s) Glucose, Fasting 81 mg/dL 70-100 Normal (applies to non-numeric results) [facility] ([facility]) Creatinine For GFR 0.83 mg/dL 0.55-1.30 Normal (applies to non -numeric results) [facility] ([facility]) Blood Urea Nitrogen 9 mg/dL 7-18 Normal (applies to non-nume young results) [facility] ([facility]) Glomerular Filtration Rate Laboratory test result Normal (applies to non- numeric results) [facility] <content>Units are mL/min/1.73 m2</content>
<content></content>
<content>Chronic Kidney Disease Staging per NKF:</content>
<content></content>
<content>Stage I & II GFR >=60 Normal to Mildly Decreased</content>
<content>Stage III GFR 30- 59 Moderately Decreased</content>
<content>Stage IV GFR 15-29 Severely Decreased</content>
<content>Stage V GFR <15 Very Little GFR Left</content>
<content>ESRD GFR <15 on TRAFFIC SIGNAL SUPERVISOR MAINTENANCE</content>
<content></content> Sodium Level 137 meq/L 136-145 Normal (applies to non-numeric res ults) [facility] ([facility]) Potassium Serum 3.9 meq/L 3.5-5.1 Normal (applies to non-numeric results) [facility] ([facility]) Chloride Level 102 meq/L 98-107 Normal (applies to non-numeric r esults) [facility] ([facility]) Anion Gap 4 meq/L 8-16 Below low normal [facility] ( [facility]) Carbon Dioxide Level 31 meq/L 21-32 Normal (applies to non-num meño results) [facility] ([facility]) Calcium Level 9.6 mg/dL 8.5-10.1 Normal (applies to non-numeric re sults) [facility] ([facility]) ID Date Data Source [id number] 02/19/2021 04:48:00 PM EDT [facility] ([facility]) Name Value Range Interpretation Code Description Data Diane rce(s) Supporting Document(s) Hemoglobin S [Presence] in Blood by Solubility test Laboratory t est result Normal (applies to non-numeric results) [facility] ([facility]) ID Date Data Source [id number] 02/19/2021 04:48:00 PM EDT [facility] ([facility]) Name Value Range Interpretation Code Description Data Diane rce(s) Supporting Document(s) Red Blood Count 4.42 10 4.00-5.40 Normal (applies to non-numeric results) [facility] ([facility]) White Blood Count 6.0 10 4.0-10.0 Normal (applies to non-numeri c results) [facility] ([facility]) Hemoglobin 13.1 g/dL 12.0-15.5 Normal (applies to non-numeric resul ts) [facility] ([facility]) Hematocrit 39.3 % 36.0-47.0 Normal (applies to non-numeric resul ts) [facility] ([facility]) Mean Corpuscular Volume 88.9 fl 80.0-96.0 Normal ( applies to non-numeric results) [facility] ([facility]) Mean Corpuscular Hemoglobin 29.6 pg 27.0-33.0 Norm al (applies to non-numeric results) [facility] ([facility]) Mean Corpuscular HGB Conc 33.3 g/dL 32.0-36.5 Normal (applies to non-numeric results) [facility] ([facility]) Platelet Count, Automated 405 10 150-450 Normal (applies to non-numeric results) [facility] ([facility]) Red Cell Distribution Width 12.4 % 11.5-14.5 Norm al (applies to non-numeric results) [facility] ([facility]) Lymph % 52.4 % 24.0-44.0 Above high normal [facility] ([facility]) [place] % 10.1 % 2.0-8.0 Above high normal [facility] ([facility]) Neutrophils % 33.3 % 36.0-66.0 Below low normal [facility] ([facility]) Eos % 2.7 % 0.0-3.0 Normal (applies to non-numeric resul ts) [facility] ([facility]) Baso % 1.3 % 0.0-1.0 Above high normal [facility] ([facility]) Immature Granulocyte % 0.2 % 0-3.0 Normal (applies to non-n umeric results) [facility] ([facility]) Nucleated Red Blood Cell % 0.0 % 0-0 Normal (applies to n on-numeric results) [facility] ([facility]) Neutrophils # 2.0 10 1.5-8.5 Normal (applies to non-numeric re sults) [facility] ([facility]) Lymph # 3.2 10 1.5-5.0 Normal (applies to non-numeric resul ts) [facility] ([facility]) [place] # 0.6 10 0.0-0.8 Normal (applies to non-numeric resul ts) [facility] ([facility]) Eos # 0.2 10 0.0-0.5 Normal (applies to non-numeric resul ts) [facility] ([facility]) Baso # 0.1 10 0.0-0.2 Normal (applies to non-numeric resul ts) [facility] ([facility]) ID Date Data Source [id number] 01/20/2021 04:52:00 PM EDT [facility] ([facility]) Name Value Range Interpretation Code Description Data Diane rce(s) Supporting Document(s) White Blood Count 6.1 10 4.0-10.0 Normal (applies to non-numeri c results) [facility] ([facility]) Red Blood Count 4.32 10 4.00-5.40 Normal (applies to non-numeric results) [facility] ([facility]) Hemoglobin 12.9 g/dL 12.0-15.5 Normal (applies to non-numeric resul ts) [facility] ([facility]) Mean Corpuscular Volume 91.4 fl 80.0-96.0 Normal ( applies to non-numeric results) [facility] ([facility]) Hematocrit 39.5 % 36.0-47.0 Normal (applies to non-numeric resul ts) [facility] ([facility]) Mean Corpuscular HGB Conc 32.7 g/dL 32.0-36.5 Normal (applies to non-numeric results) [facility] ([facility]) Mean Corpuscular Hemoglobin 29.9 pg 27.0-33.0 Norm al (applies to non-numeric results) [facility] ([facility]) Red Cell Distribution Width 12.8 % 11.5-14.5 Norm al (applies to non-numeric results) [facility] ([facility]) Neutrophils % 46.0 % 36.0-66.0 Normal (applies to non-numeric re sults) [facility] ([facility]) Platelet Count, Automated 388 10 150-450 Normal (applies to non-numeric results) [facility] ([facility]) [place] % 8.7 % 2.0-8.0 Above high normal [facility] ([facility]) Eos % 1.0 % 0.0-3.0 Normal (applies to non-numeric resul ts) [facility] ([facility]) Lymph % 43.1 % 24.0-44.0 Normal (applies to non-numeric resul ts) [facility] ([facility]) Immature Granulocyte % 0.2 % 0-3.0 Normal (applies to non-n umeric results) [facility] ([facility]) Baso % 1.0 % 0.0-1.0 Normal (applies to non-numeric resul ts) [facility] ([facility]) Nucleated Red Blood Cell % 0.0 % 0-0 Normal (applies to n on-numeric results) [facility] ([facility]) Lymph # 2.6 10 1.5-5.0 Normal (applies to non-numeric resul ts) [facility] ([facility]) Neutrophils # 2.8 10 1.5-8.5 Normal (applies to non-numeric re sults) [facility] ([facility]) Eos # 0.1 10 0.0-0.5 Normal (applies to non-numeric resul ts) [facility] ([facility]) [place] # 0.5 10 0.0-0.8 Normal (applies to non-numeric resul ts) [facility] ([facility]) Baso # 0.1 10 0.0-0.2 Normal (applies to non-numeric resul ts) [facility] ([facility]) ID Date Data Source [id number] 01/20/2021 04:52:00 PM EDT [facility] Name Value Range Interpretation Code Description Data Diane rce(s) Supporting Document(s) Calcidiol [Mass/volume] in Serum or Plasma 35.6 ng/mL 30.0- 100.0 Normal (applies to non-numeric results) [facility] ([facility]) ID Date Data Source [id number] 01/20/2021 04:52:00 PM EDT [facility] ([facility]) Name Value Range Interpretation Code Description Data Diane rce(s) Supporting Document(s) Thyroid Stimulating Hormone 1.600 uIU/ML 0.358-3.740 Norm al (applies to non- numeric results) [facility] ([facility]) Free T4 0.99 ng/dL 0.76-1.46 Normal (applies to non-numeric resul ts) [facility] ([facility]) ID Date Data Source [id number] 01/20/2021 04:52:00 PM EDT [facility] ([facility]) Name Value Range Interpretation Code Description Data Diane rce(s) Supporting Document(s) Cholesterol Level 135 mg/dL Normal (applies to non-numeri c results) [facility] ([facility]) Triglycerides Level 50 mg/dL Normal (applies to non-nume young results) [facility] ([facility]) HDL Cholesterol 42 mg/dL Normal (applies to non-numeric results) [facility] ([facility]) LDL Cholesterol 83 mg/dL Normal (applies to non-numeric results) [facility] ([facility]) Non-HDL-C 93 mg/dL Normal (applies to non-numeric resul ts) [facility] ([facility]) Cholesterol Risk Ratio 3.214 Normal (applies to non-n umeric results) [facility] ([facility]) ID Date Data Source [id number] 01/20/2021 04:52:00 PM EDT [facility] Name Value Range Interpretation Code Description Data Diane rce(s) Supporting Document(s) Glucose, Fasting 75 mg/dL 70-100 Normal (applies to non-numeric results) [facility] ([facility]) Blood Urea Nitrogen 9 mg/dL 7-18 Normal (applies to non-nume young results) [facility] ([facility]) Sodium Level 135 meq/L 136-145 Below low normal [facility] ([facility]) Creatinine For GFR 0.76 mg/dL 0.55-1.30 Normal (applies to non -numeric results) [facility] ([facility]) Glomerular Filtration Rate Laboratory test result Normal (applies to non- numeric results) [facility] ([facility]) <content>Units are mL/min/1.73 m2</content>
<content></content>
<content>Chronic Kidney Disease Staging per NKF:</content>
<content></content>
<content>Stage I & II GFR >=60 Normal to Mildly Decreased</content>
<content>Stage III GFR 30- 59 Moderately Decreased</content>
<content>Stage IV GFR 15-29 Severely Decreased</content>
<content>Stage V GFR <15 Very Little GFR Left</content>
<content>ESRD GFR <15 on TRAFFIC SIGNAL [employer]PERVISOR MAINTENANCE</content>
<content></content> Potassium Serum 4.1 meq/L 3.5-5.1 Normal (applies to non-numeric results) [facility] ([facility]) Chloride Level 102 meq/L 98-107 Normal (applies to non-numeric r esults) [facility] ([facility]) Carbon Dioxide Level 29 meq/L 21-32 Normal (applies to non-num meño results) [facility] ([facility]) Calcium Level 9.0 mg/dL 8.5-10.1 Normal (applies to non-numeric re sults) [facility] ([facility]) Anion Gap 4 meq/L 8-16 Below low normal [facility] ( [facility]) Alt/SGPT 22 U/L 12-78 Normal (applies to non-numeric resul ts) [facility] ([facility]) Ast/Sgot 13 U/L 7-37 Normal (applies to non-numeric resul ts) [facility] ([facility]) Alkaline Phosphatase 65 U/L 45-117 Normal (applies to non-num meño results) [facility] ([facility]) Bilirubin,Total 0.7 mg/dL 0.2-1.0 Normal (applies to non-numeric results) [facility] ([facility]) Total Protein 7.5 GM/DL 6.4-8.2 Normal (applies to non-numeric re sults) [facility] ([facility]) Albumin/Globulin Ratio 1.0 1.2-2.2 Below low normal [facility] Albumin 3.7 GM/DL 3.2-5.2 Normal (applies to non-numeric resul ts) [facility] ([facility]) ID Date Data Source [id number] 11/01/2020 11:00:00 AM EST [facility] Name Value Range Interpretation Code Description Data Diane rce(s) Supporting Document(s) SARS coronavirus 2 RNA Not Detected [facility] [place] This lab was ordered by [facility] and reported by [facility]. ID Date Data Source [id number] 10/21/2020 01:22:00 PM EST [facility] ([facility]) Name Value Range Interpretation Code Description Data Diane rce(s) Supporting Document(s) Calcidiol [Mass/volume] in Serum or Plasma 25.3 ng/mL 30.0- 100.0 Below low normal [facility] ([facility]) ID Date Data Source [id number] 10/21/2020 01:22:00 PM EST [facility] ([facility]) Name Value Range Interpretation Code Description Data Diane rce(s) Supporting Document(s) Glucose, Fasting 98 mg/dL 70-100 Normal (applies to non-numeric results) [facility] ([facility]) Blood Urea Nitrogen 11 mg/dL 7-18 Normal (applies to non-nume young results) [facility] ([facility]) Creatinine For GFR 0.90 mg/dL 0.55-1.30 Normal (applies to non -numeric results) [facility] ([facility]) Glomerular Filtration Rate Laboratory test result Normal (applies to non- numeric results) [facility] ([facility]) <content>Units are mL/min/1.73 m2</content>
<content></content>
<content>Chronic Kidney Disease Staging per NKF:</content>
<content></content>
<content>Stage I & II GFR >=60 Normal to Mildly Decreased</content>
<content>Stage III GFR 30- 59 Moderately Decreased</content>
<content>Stage IV GFR 15-29 Severely Decreased</content>
<content>Stage V GFR <15 Very Little GFR Left</content>
<content>ESRD GFR <15 on TRAFFIC [employer]PER[employer] MAINTENANCE</content>
<content></content> Sodium Level 139 meq/L 136-145 Normal (applies to non-numeric res ults) [facility] ([facility]) Potassium Serum 4.0 meq/L 3.5-5.1 Normal (applies to non-numeric results) [facility] ([facility]) Chloride Level 104 meq/L 98-107 Normal (applies to non-numeric r esults) [facility] ([facility]) Carbon Dioxide Level 32 meq/L 21-32 Normal (applies to non-num meño results) [facility] ([facility]) Calcium Level 9.2 mg/dL 8.5-10.1 Normal (applies to non-numeric re sults) [facility] ([facility]) Anion Gap 3 meq/L 8-16 Below low normal [facility] ( [facility]) ID Date Data Source [id number] 09/18/2020 12:00:00 PM EST [facility] Name Value Range Interpretation Code Description Data Diane rce(s) Supporting Document(s) SARS coronavirus 2 RNA [facility] This lab was ordered by [facility] and reported by [facility]. ID Date Data Source [id number] 08/07/2020 12:00:00 AM EST [facility] olog[facility] Imaging ART Ayoub Patient Name: [id number], [address] Date [place] :1970[place] [address] Date of Exam: 08/07/2020#: Fax: TYLY : MAMMO SCREENING WITH CADCLINICAL INFORMATION: Screening.Based [...] mammogram was read with the assistance of Ana OjedaTrigemina, an FDAapproved computer aided detection system for [...] rce(s) Supporting Document(s) ID Date Data Source [id number] 07/16/2020 03:06:00 PM EDT [facility] ([facility]) Name Value Range Interpretation Code Description Data Diane rce(s) Supporting Document(s) Free T4 0.90 ng/dL 0.76-1.46 Normal (applies to non-numeric resul ts) [facility] ([facility]) Thyroid Stimulating Hormone 3.130 uIU/ML 0.358-3.740 Norm al (applies to non- numeric results) [facility] ([facility]) ID Date Data Source [id number] 07/16/2020 03:06:00 PM EDT [facility] ([facility]) Name Value Range Interpretation Code Description Data Diane rce(s) Supporting Document(s) Triglycerides Level 71 mg/dL Normal (applies to non-nume young results) [facility] ([facility]) Cholesterol Level 171 mg/dL Normal (applies to non-numeri c results) [facility] ([facility]) Non-HDL-C 127 mg/dL Normal (applies to non-numeric resul ts) [facility] ([facility]) HDL Cholesterol 44 mg/dL Normal (applies to non-numeric results) [facility] ([facility]) LDL Cholesterol 113 mg/dL Above high normal [facility] ([facility]) Cholesterol Risk Ratio 3.886 Normal (applies to non-n umeric results) [facility] ([facility]) ID Date Data Source [id number] 07/16/2020 03:06:00 PM EDT [facility] ([facility]) Name Value Range Interpretation Code Description Data Diane rce(s) Supporting Document(s) Glucose, Fasting 81 mg/dL 70-100 Normal (applies to non-numeric results) [facility] ([facility]) Creatinine For GFR 0.86 mg/dL 0.55-1.30 Normal (applies to non -numeric results) [facility] ([facility]) Blood Urea Nitrogen 13 mg/dL 7-18 Normal (applies to non-nume young results) [facility] ([facility]) Glomerular Filtration Rate Laboratory test result Normal (applies to non- numeric results) [facility] ([facility]) <content>Units are mL/min/1.73 m2</content>
<content></content>
<content>Chronic Kidney Disease Staging per NKF:</content>
<content></content>
<content>Stage I & II GFR >=60 Normal to Mildly Decreased</content>
<content>Stage III GFR 30- 59 Moderately Decreased</content>
<content>Stage IV GFR 15-29 Severely Decreased</content>
<content>Stage V GFR <15 Very Little GFR Left</content>
<content>ESRD GFR <15 on TRAFFIC SIG[employer]PER[employer] MAINTENANCE</content>
<content></content> Potassium Serum 3.7 meq/L 3.5-5.1 Normal (applies to non-numeric results) [facility] ([facility]) Chloride Level 101 meq/L 98-107 Normal (applies to non-numeric r esults) [facility] ([facility]) Sodium Level 136 meq/L 136-145 Normal (applies to non-numeric res ults) [facility] ([facility]) Calcium Level 9.9 mg/dL 8.5-10.1 Normal (applies to non-numeric re sults) [facility] ([facility]) Anion Gap 4 meq/L 8-16 Below low normal [facility] Carbon Dioxide Level 31 meq/L 21-32 Normal (applies to non-num meño results) [facility] ([facility]) Alt/SGPT 25 U/L 12-78 Normal (applies to non-numeric resul ts) [facility] ([facility]) Alkaline Phosphatase 73 U/L 45-117 Normal (applies to non-num meño results) [facility] ([facility]) Ast/Sgot 22 U/L 7-37 Normal (applies to non-numeric resul ts) [facility] ([facility]) Total Protein 7.8 GM/DL 6.4-8.2 Normal (applies to non-numeric re sults) [facility] ([facility]) Albumin 3.7 GM/DL 3.2-5.2 Normal (applies to non-numeric resul ts) [facility] ([facility]) Bilirubin,Total 0.6 mg/dL 0.2-1.0 Normal (applies to non-numeric results) [facility] ([facility]) Albumin/Globulin Ratio 0.9 1.2-2.2 Below low normal [facility] ([facility]) ID Date Data Source [id number] 07/16/2020 03:06:00 PM EDT [facility] ([facility]) Name Value Range Interpretation Code Description Data Diane rce(s) Supporting Document(s) White Blood Count 7.3 10 4.0-10.0 Normal (applies to non-numeri c results) [facility] ([facility]) Hematocrit 38.4 % 36.0-47.0 Normal (applies to non-numeric resul ts) [facility] ([facility]) Red Blood Count 4.28 10 4.00-5.40 Normal (applies to non-numeric results) [facility] ([facility]) Hemoglobin 12.4 g/dL 12.0-15.5 Normal (applies to non-numeric resul ts) [facility] ([facility]) Mean Corpuscular HGB Conc 32.3 g/dL 32.0-36.5 Normal (applies to non-numeric results) [facility] ([facility]) Mean Corpuscular Volume 89.7 fl 80.0-96.0 Normal ( applies to non-numeric results) [facility] ([facility]) Mean Corpuscular Hemoglobin 29.0 pg 27.0-33.0 Norm al (applies to non-numeric results) [facility] ([facility]) Platelet Count, Automated 376 10 150-450 Normal (applies to non-numeric results) [facility] ([facility]) Red Cell Distribution Width 12.8 % 11.5-14.5 Norm al (applies to non-numeric results) [facility] ([facility]) Neutrophils % 45.9 % 36.0-66.0 Normal (applies to non-numeric re sults) [facility] ([facility]) [place] % 8.5 % 0.0-5.0 Above high normal [facility] ([facility]) Lymph % 41.3 % 24.0-44.0 Normal (applies to non-numeric resul ts) [facility] ([facility]) Eos % 3.3 % 0.0-3.0 Above high normal [facility] ([facility]) Nucleated Red Blood Cell % 0.0 % 0-0 Normal (applies to n on-numeric results) [facility] ([facility]) Immature Granulocyte % 0.3 % 0-3.0 Normal (applies to non-n umeric results) [facility] ([facility]) Baso % 0.7 % 0.0-1.0 Normal (applies to non-numeric resul ts) [facility] ([facility]) [place] # 0.6 10 0.0-0.8 Normal (applies to non-numeric resul ts) [facility] ([facility]) Lymph # 3.0 10 1.5-5.0 Normal (applies to non-numeric resul ts) [facility] ([facility]) Neutrophils # 3.4 10 1.5-8.5 Normal (applies to non-numeric re sults) [facility] ([facility]) Eos # 0.2 10 0.0-0.5 Normal (applies to non-numeric resul ts) [facility] ([facility]) Baso # 0.1 10 0.0-0.2 Normal (applies to non-numeric resul ts) [facility] ([facility]) Procedure Social History Code Duration Value Status Description Data Source(s ) Smoking 04/27/2021 12:00:00 AM EDT Patient has never smoked co mpleted Patient has never smoked [facility] ([facility]) Vital Signs ID Date Data Source UNK Name Value Range Interpretation Code Description Data Source(s) Body weight 189.00 [lb_av] 189.00 [lb_av] [facility] ([facility]) Respiratory rate 18 /min 18 /min [facility] ( [facility]) Body height 63.7 [in_i] 63.7 [in_i] [facility] ([facility] 5'3.70" Body weight 188.25 [lb_av] 188.25 [lb_av] [facility] ([facility]) Body mass index (BMI) [Ratio] 32.6 kg/m2 32.6 k g/m2 [facility] ([facility]) Oxygen saturation in Arterial blood by Pulse oximetry 98 % 98 % [facility] ([facility]) [place] body weight 115 [lb_av] 115 [lb_av] [facility] ([facility]) Systolic blood pressure 134 mm[Hg] 134 mm[Hg] [facility] ([facility]) Diastolic blood pressure 78 mm[Hg] 78 mm[Hg] [facility] ([facility]) Heart rate 92 /min 92 /min [facility] ([facility]) Respiratory rate 18 /min 18 /min [facility] ( [facility]) Body temperature 98.2 [degF] 98.2 [degF] [facility] ([facility]) Body height 63.7 [in_i] 63.7 [in_i] [facility] ([facility] 5'3.70" Body mass index (BMI) [Ratio] 33.6 kg/m2 33.6 k g/m2 [facility] ([facility]) Respiratory rate 20 /min 20 /min [facility] ( [facility]) Body temperature 97.8 [degF] 97.8 [degF] [facility] ([facility]) Diastolic blood pressure 82 mm[Hg] 82 mm[Hg] [facility] ([facility]) Body weight 194.00 [lb_av] 194.00 [lb_av] [facility] ([facility]) Heart rate 69 /min 69 /min [facility] ([facility]) Oxygen saturation in Arterial blood by Pulse oximetry 98 % 98 % [facility] ([facility]) [place] body weight 115 [lb_av] 115 [lb_av] [facility] ([facility]) Systolic blood pressure 142 mm[Hg] 142 mm[Hg] [facility] ([facility]) Body height 63.7 [in_i] 63.7 [in_i] [facility] ([facility] 5'3.70" Body weight 191.00 [lb_av] 191.00 [lb_av] [facility] ([facility]) Body mass index (BMI) [Ratio] 33.1 kg/m2 33.1 k g/m2 [facility] ([facility]) Heart rate 75 /min 75 /min [facility] ([facility]) Respiratory rate 18 /min 18 /min [facility] ( [facility]) Body temperature 98.4 [degF] 98.4 [degF] [facility] ([facility]) Oxygen saturation in Arterial blood by Pulse oximetry 99 % 99 % [facility] ([facility]) [place] body weight 115 [lb_av] 115 [lb_av] [facility] ([facility]) Systolic blood pressure 124 mm[Hg] 124 mm[Hg] [facility] ([facility]) Diastolic blood pressure 76 mm[Hg] 76 mm[Hg] [facility] ([facility]) Systolic blood pressure 135 mm[Hg] 135 mm[Hg] [facility] ([facility]) Heart rate 73 /min 73 /min [facility] ([facility]) Diastolic blood pressure 87 mm[Hg] 87 mm[Hg] [facility] ([facility]) Body temperature 98.1 [degF] 98.1 [degF] [facility] ([facility]) Body height 63.5 [in_i] 63.5 [in_i] [facility] ([facility]) 5'3.50" Body weight 193.00 [lb_av] 193.00 [lb_av] [facility] Body mass index (BMI) [Ratio] 33.6 kg/m2 33.6 k g/m2 [facility] ([facility]) [place] body weight 115 [lb_av] 115 [lb_av] [facility] Body weight 87.545 kg 87.545 kg [facility] ([facility]) Body surface area Derived from formula 1.92 m2 1.92 m2 [facility] ([facility]) Body mass index (BMI) [Ratio] 32.1 kg/m2 32.1 k g/m2 [facility] ([facility]) Heart rate 60 /min 60 /min [facility] ([facility]) Systolic blood pressure 120 mm[Hg] 120 mm[Hg] [facility] ([facility]) Respiratory rate 16 /min 16 /min [facility] ( [facility]) Body temperature 97.6 [degF] 97.6 [degF] [facility] ([facility]) Oxygen saturation in Arterial blood by Pulse oximetry 100 % 100 % [facility] ([facility]) [place] body weight 115 [lb_av] 115 [lb_av] [facility] ([facility]) Diastolic blood pressure 80 mm[Hg] 80 mm[Hg] [facility] ([facility]) Body height 63.7 [in_i] 63.7 [in_i] [facility] ([facility] 5'3.70" Body weight 185.50 [lb_av] 185.50 [lb_av] [facility] ([facility])
[2021-08-30] MEDS ORDERED: OCUF0.25 OD (14:37)
[2021-08-30] MEDS ORDERED: ERYT5OIN25 OD (14:37)
--- OUTSIDE RECORDS SUMMARY | 2021-08-30 14:44 | CCD ---
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 If you continue you may have access to information: Regarding HIV / AIDS; Provided by facilities licensed or operated by the [facility] Office of Mental Health; or Provided by the [facility] Office for People With Developmental Disabilities. If such information is present, then the following [facility] mandated warning applies: This information has been [...] law may result in a fine or usp sentence or both. A general authorization for the release of medical or other information is NOT sufficient authorization for further disc losure. Family History Family Member Name Family Member Gender Family Member Status Date o f Status Description Data Source(s) Unknown Unknown Problem [facility] Unknown Unknown Problem [facility] ([facility] father Unknown Female Problem [facility] ([facility]) Encounters Encounter Providers Location Date Indications Data Source(s ) Outpatient Attender: Jg CORDOVA Family [facility] 04/27/2021 02:40:00 PM EDT [facility] ([facility]) Outpatient Attender: Jg CORDOVA [facility] 01/28/2021 02:40:00 PM EDT [facility] ([facility]) Outpatient Attender: Jg CORDOVA Family [facility] 10/22/2020 02:00:00 PM EST [facility] ([facility]) Outpatient Attender: Jg CORDOVA [facility] 07/22/2020 03:00:00 PM EDT [facility] ([facility]) Immunizations Vaccine Date Status Description Data Source(s) New in 2012. IIV4 07/13/2021 04:58:00 PM EDT completed [facility] ([facility]) New in 2012. IIV4 07/13/2021 02:53:00 PM EDT completed [facility] ([facility]) COVID-19 VACCINE Pfizer 12/11/2020 12:00:00 AM EDT completed NYSIIS Vaccine Series Complete: NOThis Data was Submitted to [facility] Via [employer] in 2011. IIV4 07/22/2020 03:22:00 PM EDT completed [facility] ([facility]) Medications Medication Brand Name Start Date Product Form Dose Route Admi nistrative Instructions Pharmacy Instructions Status Indications Reaction Description Data Source(s) Betamethasone Dipropionate/Minoxidil 10/22/2020 12:00:00 AM EST TOPICAL active [facility] ([facility]) Shingrix Shingrix 09/25/2020 12:00:00 AM EST SUBCUTANEOUS completed [facility] ([facility]) Insurance Providers Payer name Policy type / Coverage type Policy ID Covered green party ID Covered green party's relationship to murphy Policy Murphy Plan Information [facility] [id number] [facility] [id number] .[id number] Self [id number] [facility] [id number] ...[id number] .[id number] Self [id number] [facility] [employer] [id number] ...[id number] .[id number] Self [id number] [facility] [employer] [id number] ..[id number] .[id number] Self [id number] [facility] [employer] [id number] ..[id number] .[id number] Self [id number] [facility] [id number] ..[id number] .[id number] Self [id number] [facility] [employer] [id number] ..[id number] .[id number] Self [id number] [facility] [id number] Self [facility] [id number] [facility] [id number] Self [id number] [facility] [id number] .[id number] Self [id number] [facility] [id number] .[id number] Self [id number] [facility] [id number] .806.2936.0 Self [id number] [facility] [id number] [id number] .806.2936.0 Self [id number] [facility] [id number] [id number] .[id number] Self [id number] [facility] [id number] [facility] [id number] SP [id number] [facility] [id number] [facility] [id number] [facility] [id number] ..[id number] Self [id number] [facility] [id number] S [id number] [facility] AT [facility] Health Maintenance Organization ([facility]) 00 [id number] Self [id number] [facility] [id number] Problems, Conditions, and Diagnoses No Information Surgeries/Procedures Procedure Description Date Indications Data Source(s) REMOVAL SKN TAGS VENEREAL DISEASE INVESTIGATOR FIBRQ TAGS ANY AREA UP&W/15 05/05 12:00:00 AM EDT [facility] ([facility]) PERIODIC PREVENTIVE MED EST PATIENT 40-64YRS 12:00:00 AM EDT MED[facility] ([facility]) OFFICE OUTPATIENT VISIT 25 MINUTES 01/28/2021 12:00:00 AM EDT [facility] ([facility]) Results ID Date Data Source [id number] 05/05/2021 04:30:00 PM EDT [facility] ([facility]) Name Value Range Interpretation Code Description Data Diane rce(s) Supporting Document(s) Laboratory test finding (navigational concept) Laboratory test result [facility] ([facility]) No further treatment necessary 8-19-21 L M on recorder Laboratory test finding (navigational concept) Laboratory test result [facility] ([facility]) No further treatment necessary 8-19-21 L M on recorder ID Date Data Source [id number] 05/05/2021 04:30:00 PM EDT [facility] ([facility]) Name Value Range Interpretation Code Description Data Diane rce(s) Supporting Document(s) Laboratory test finding (navigational concept) Laboratory test result [facility] ([facility]) ID Date Data Source [id number] 04/25/2021 09:20:00 AM EDT [facility] ([facility]) Name Value Range Interpretation Code Description Data Diane rce(s) Supporting Document(s) Calcidiol [Mass/volume] in Serum or Plasma 33.5 ng/mL 30.0- 100.0 Normal (applies to non-numeric results) [facility] ([facility]) ID Date Data Source [id number] 04/25/2021 09:20:00 AM EDT [facility] ([facility]) Name Value Range Interpretation Code Description Data Diane rce(s) Supporting Document(s) White Blood Count 5.8 10 4.0-10.0 Normal (applies to non-numeri c results) [facility] ([facility]) Hemoglobin 11.8 g/dL 12.0-15.5 Below low normal [facility] ( [facility]) Red Blood Count 3.99 10 4.00-5.40 Below low normal [facility] ([facility]) Mean Corpuscular Volume 91.2 fl 80.0-96.0 Normal ( applies to non-numeric results) [facility] ([facility]) Hematocrit 36.4 % 36.0-47.0 Normal (applies to non-numeric resul ts) [facility] ([facility]) Mean Corpuscular Hemoglobin 29.6 pg 27.0-33.0 Norm al (applies to non-numeric results) [facility] ([facility]) Mean Corpuscular HGB Conc 32.4 g/dL 32.0-36.5 Normal (applies to non-numeric results) [facility] ([facility]) Platelet Count, Automated 403 10 150-450 Normal (applies to non-numeric results) [facility] ([facility]) Red Cell Distribution Width 12.7 % 11.5-14.5 Norm al (applies to non-numeric results) [facility] ([facility]) Neutrophils % 51.3 % 36.0-66.0 Normal (applies to non-numeric re sults) [facility] ([facility]) [place] % 8.5 % 2.0-8.0 Above high normal [facility] ([facility]) Lymph % 38.0 % 24.0-44.0 Normal (applies to non-numeric resul ts) [facility] ([facility]) Eos % 1.0 % 0.0-3.0 Normal (applies to non-numeric resul ts) [facility] ([facility]) Immature Granulocyte % 0.2 % 0-3.0 Normal (applies to non-n umeric results) [facility] ([facility]) Baso % 1.0 % 0.0-1.0 Normal (applies to non-numeric resul ts) [facility] ([facility]) Neutrophils # 3.0 10 1.5-8.5 Normal (applies to non-numeric re sults) [facility] ([facility]) Nucleated Red Blood Cell % 0.0 % 0-0 Normal (applies to n on-numeric results) [facility] ([facility]) Eos # 0.1 10 0.0-0.5 Normal (applies to non-numeric resul ts) [facility] ([facility]) [place] # 0.5 10 0.0-0.8 Normal (applies to non-numeric resul ts) [facility] ([facility]) Lymph # 2.2 10 1.5-5.0 Normal (applies to non-numeric resul ts) [facility] ([facility]) Baso # 0.1 10 0.0-0.2 Normal (applies to non-numeric resul ts) [facility] ([facility]) ID Date Data Source [id number] 04/25/2021 09:20:00 AM EDT [facility] ([facility]) Name Value Range Interpretation Code Description Data Diane rce(s) Supporting Document(s) Triglycerides Level 32 mg/dL Normal (applies to non-nume young results) [facility] ([facility]) LDL Cholesterol 95 mg/dL Normal (applies to non-numeric results) [facility] ([facility]) HDL Cholesterol 34 mg/dL Below low normal [facility] ([facility]) Cholesterol Level 135 mg/dL Normal (applies to non-numeri c results) [facility] ([facility]) Cholesterol Risk Ratio 3.970 Normal (applies to non-n umeric results) [facility] ([facility]) Non-HDL-C 101 mg/dL Normal (applies to non-numeric resul ts) [facility] ([facility]) ID Date Data Source [id number] 04/25/2021 09:20:00 AM EDT [facility] ([facility]) Name Value Range Interpretation Code Description Data Diane rce(s) Supporting Document(s) Thyroid Stimulating Hormone 1.570 uIU/ML 0.358-3.740 Norm al (applies to non- numeric results) [facility] ([facility]) Free T4 1.00 ng/dL 0.76-1.46 Normal (applies to non-numeric resul ts) [facility] ([facility]) ID Date Data Source [id number] 04/25/2021 09:20:00 AM EDT [facility] ([facility]) Name Value Range Interpretation Code Description Data Diane rce(s) Supporting Document(s) Creatinine For GFR 0.84 mg/dL 0.55-1.30 Normal (applies to non -numeric results) [facility] ([facility]) Glucose, Fasting 101 mg/dL 70-100 Above high normal M EDENT ([facility]) Blood Urea Nitrogen 9 mg/dL 7-18 Normal (applies to non-nume young results) [facility] ([facility]) Glomerular Filtration Rate Laboratory test result Normal (applies to non- numeric results) [facility] ([facility]) <content>Units are mL/min/1.73 m2</content>
<content></content>
<content>Chronic Kidney Disease Staging per NKF:</content>
<content></content>
<content>Stage I & II GFR >=60 Normal to Mildly Decreased</content>
<content>Stage III GFR 30- 59 Moderately Decreased</content>
<content>Stage IV GFR 15-29 Severely Decreased</content>
<content>Stage V GFR <15 Very Little GFR Left</content>
<content>ESRD GFR <15 on PROJECT DRILLING ENGINEER</content>
<content></content> Sodium Level 141 meq/L 136-145 Normal (applies to non-numeric res ults) [facility] ([facility]) Potassium Serum 3.9 meq/L 3.5-5.1 Normal (applies to non-numeric results) [facility] ([facility]) Carbon Dioxide Level 32 meq/L 21-32 Normal (applies to non-num meño results) [facility] ([facility]) Chloride Level 106 meq/L 98-107 Normal (applies to non-numeric r esults) [facility] ([facility]) Anion Gap 3 meq/L 8-16 Below low [facility] Calcium Level 9.0 mg/dL 8.5-10.1 Normal (applies to non-numeric re sults) [facility]) Alt/SGPT 20 U/L 12-78 Normal (applies to non-numeric resul ts) [facility] ([facility]) Ast/Sgot 16 U/L 7-37 Normal (applies to non-numeric resul ts) [facility] ([facility]) Total Protein 7.5 GM/DL 6.4-8.2 Normal (applies to non-numeric re sults) [facility] ([facility]) Alkaline Phosphatase 83 U/L 45-117 Normal (applies to non-num meño results) [facility] ([facility]) Bilirubin,Total 0.3 mg/dL 0.2-1.0 Normal (applies to non-numeric results) [facility] ([facility]) Albumin/Globulin Ratio 0.9 1.2-2.2 Below low normal [facility] ([facility]) Albumin 3.5 GM/DL 3.2-5.2 Normal (applies to non-numeric resul ts) [facility] ([facility]) ID Date Data Source [id number] 03/01/2021 10:50:00 AM EDT [facility] Name Value Range Interpretation Code Description Data Diane rce(s) Supporting Document(s) SARS-CoV-2 (COVID-19) RNA [Presence] in Respiratory specimen by JAROD with probe detection Not Detected [facility] This lab was ordered by [facility] and reported by [employer]. ID Date Data Source [id number] 02/19/2021 04:48:00 PM EDT [facility] ([facility]) Name Value Range Interpretation Code Description Data Diane rce(s) Supporting Document(s) Glucose, Fasting 81 mg/dL 70-100 Normal (applies to non-numeric results) [facility] ([facility]) Creatinine For GFR 0.83 mg/dL 0.55-1.30 Normal (applies to non -numeric results) [facility] ([facility]) Blood Urea Nitrogen 9 mg/dL 7-18 Normal (applies to non-nume young results) [facility] ([facility]) Glomerular Filtration Rate Laboratory test result Normal (applies to non- numeric results) [facility]) <content>Units are mL/min/1.73 m2</content>
<content></content>
<content>Chronic Kidney Disease Staging per NKF:</content>
<content></content>
<content>Stage I & II GFR >=60 Normal to Mildly Decreased</content>
<content>Stage III GFR 30- 59 Moderately Decreased</content>
<content>Stage IV GFR 15-29 Severely Decreased</content>
<content>Stage V GFR <15 Very Little GFR Left</content>
<content>ESRD GFR <15 on PROJECT DRILLING ENGINEER</content>
<content></content> Sodium Level 137 meq/L 136-145 Normal (applies to non-numeric res ults) [facility] ([facility]) Potassium Serum 3.9 meq/L 3.5-5.1 Normal (applies to non-numeric results) [facility] ([facility]) Chloride Level 102 meq/L 98-107 Normal (applies to non-numeric r esults) [facility] ([facility]) Anion Gap 4 meq/L 8-16 Below low normal [facility] ( [facility]) Carbon Dioxide Level 31 meq/L 21-32 Normal (applies to non-num meño results) [facility] ([facility]) Calcium Level 9.6 mg/dL 8.5-10.1 Normal (applies to non-numeric re sults) [facility] ([facility]) ID Date Data Source [id number] 02/19/2021 04:48:00 PM EDT [facility] ([facility]) Name Value Range Interpretation Code Description Data Diane rce(s) Supporting Document(s) Hemoglobin S [Presence] in Blood by Solubility test Laboratory t est result Normal (applies to non-numeric results) [facility] ([facility]) ID Date Data Source [id number] 02/19/2021 04:48:00 PM EDT [facility] ([facility]) Name Value Range Interpretation Code Description Data Diane rce(s) Supporting Document(s) Red Blood Count 4.42 10 4.00-5.40 Normal (applies to non-numeric results) [facility]) White Blood Count 6.0 10 4.0-10.0 Normal (applies to non-numeri c results) [facility] ([facility]) Hemoglobin 13.1 g/dL 12.0-15.5 Normal (applies to non-numeric resul ts) [facility] ([facility]) Hematocrit 39.3 % 36.0-47.0 Normal (applies to non-numeric resul ts) [facility] ([facility]) Mean Corpuscular Volume 88.9 fl 80.0-96.0 Normal ( applies to non-numeric results) [facility] ([facility]) Mean Corpuscular Hemoglobin 29.6 pg 27.0-33.0 Norm al (applies to non-numeric results) [facility] ([facility]) Mean Corpuscular HGB Conc 33.3 g/dL 32.0-36.5 Normal (applies to non-numeric results) [facility] ([facility]) Platelet Count, Automated 405 10 150-450 Normal (applies to non-numeric results) [facility] ([facility]) Red Cell Distribution Width 12.4 % 11.5-14.5 Norm al (applies to non-numeric results) [facility] ([facility]) Lymph % 52.4 % 24.0-44.0 Above high normal [facility] ([facility]) [place] % 10.1 % 2.0-8.0 Above high normal [facility] ([facility]) Neutrophils % 33.3 % 36.0-66.0 Below low normal [facility] ([facility]) Eos % 2.7 % 0.0-3.0 Normal (applies to non-numeric resul ts) [facility] ([facility]) Baso % 1.3 % 0.0-1.0 Above high normal [facility] ([facility]) Immature Granulocyte % 0.2 % 0-3.0 Normal (applies to non-n umeric results) [facility] ([facility]) Nucleated Red Blood Cell % 0.0 % 0-0 Normal (applies to n on-numeric results) [facility] ([facility]) Neutrophils # 2.0 10 1.5-8.5 Normal (applies to non-numeric re sults) [facility] ([facility]) Lymph # 3.2 10 1.5-5.0 Normal (applies to non-numeric resul ts) [facility] ([facility]) [place] # 0.6 10 0.0-0.8 Normal (applies to non-numeric resul ts) [facility] ([facility]) Eos # 0.2 10 0.0-0.5 Normal (applies to non-numeric resul ts) [facility] ([facility]) Baso # 0.1 10 0.0-0.2 Normal (applies to non-numeric resul ts) [facility] ([facility]) ID Date Data Source [id number] 01/20/2021 04:52:00 PM EDT [facility] ([facility]) Name Value Range Interpretation Code Description Data Diane rce(s) Supporting Document(s) White Blood Count 6.1 10 4.0-10.0 Normal (applies to non-numeri c results) [facility] ([facility]) Red Blood Count 4.32 10 4.00-5.40 Normal (applies to non-numeric results) [facility] ([facility]) Hemoglobin 12.9 g/dL 12.0-15.5 Normal (applies to non-numeric resul ts) [facility] ([facility]) Mean Corpuscular Volume 91.4 fl 80.0-96.0 Normal ( applies to non-numeric results) [facility] ([facility]) Hematocrit 39.5 % 36.0-47.0 Normal (applies to non-numeric resul ts) [facility] ([facility]) Mean Corpuscular HGB Conc 32.7 g/dL 32.0-36.5 Normal (applies to non-numeric results) [facility] ([facility]) Mean Corpuscular Hemoglobin 29.9 pg 27.0-33.0 Norm al (applies to non-numeric results) [facility] ([facility]) Red Cell Distribution Width 12.8 % 11.5-14.5 Norm al (applies to non-numeric results) [facility] ([facility]) Neutrophils % 46.0 % 36.0-66.0 Normal (applies to non-numeric re sults) [facility] ([facility]) Platelet Count, Automated 388 10 150-450 Normal (applies to non-numeric results) [facility] ([facility]) [place] % 8.7 % 2.0-8.0 Above high normal [facility] ([facility]) Eos % 1.0 % 0.0-3.0 Normal (applies to non-numeric resul ts) [facility] ([facility]) Lymph % 43.1 % 24.0-44.0 Normal (applies to non-numeric resul ts) [facility] ([facility]) Immature Granulocyte % 0.2 % 0-3.0 Normal (applies to non-n umeric results) [facility] ([facility]) Baso % 1.0 % 0.0-1.0 Normal (applies to non-numeric resul ts) [facility] ([facility]) Nucleated Red Blood Cell % 0.0 % 0-0 Normal (applies to n on-numeric results) [facility] ([facility]) Lymph # 2.6 10 1.5-5.0 Normal (applies to non-numeric resul ts) [facility] ([facility]) Neutrophils # 2.8 10 1.5-8.5 Normal (applies to non-numeric re sults) [facility] ([facility]) Eos # 0.1 10 0.0-0.5 Normal (applies to non-numeric resul ts) [facility] ([facility]) [place] # 0.5 10 0.0-0.8 Normal (applies to non-numeric resul ts) [facility] ([facility]) Baso # 0.1 10 0.0-0.2 Normal (applies to non-numeric resul ts) [facility] ([facility]) ID Date Data Source [id number] 01/20/2021 04:52:00 PM EDT [facility] Name Value Range Interpretation Code Description Data Diane rce(s) Supporting Document(s) Calcidiol [Mass/volume] in Serum or Plasma 35.6 ng/mL 30.0- 100.0 Normal (applies to non-numeric results) [facility] ([facility]) ID Date Data Source [id number] 01/20/2021 04:52:00 PM EDT [facility] ([facility]) Name Value Range Interpretation Code Description Data Diane rce(s) Supporting Document(s) Thyroid Stimulating Hormone 1.600 uIU/ML 0.358-3.740 Norm al (applies to non- numeric results) [facility] ([facility]) Free T4 0.99 ng/dL 0.76-1.46 Normal (applies to non-numeric resul ts) [facility] ([facility]) ID Date Data Source [id number] 01/20/2021 04:52:00 PM EDT [facility] ([facility]) Name Value Range Interpretation Code Description Data Diane rce(s) Supporting Document(s) Cholesterol Level 135 mg/dL Normal (applies to non-numeri c results) [facility] ([facility]) Triglycerides Level 50 mg/dL Normal (applies to non-nume young results) [facility] ([facility]) HDL Cholesterol 42 mg/dL Normal (applies to non-numeric results) [facility] ([facility]) LDL Cholesterol 83 mg/dL Normal (applies to non-numeric results) [facility] ([facility]) Non-HDL-C 93 mg/dL Normal (applies to non-numeric resul ts) [facility] ([facility]) Cholesterol Risk Ratio 3.214 Normal (applies to non-n umeric results) [facility] ([facility]) ID Date Data Source [id number] 01/20/2021 04:52:00 PM EDT [facility]) Name Value Range Interpretation Code Description Data Diane rce(s) Supporting Document(s) Glucose, Fasting 75 mg/dL 70-100 Normal (applies to non-numeric results) [facility] ([facility]) Blood Urea Nitrogen 9 mg/dL 7-18 Normal (applies to non-nume young results) [facility] ([facility]) Sodium Level 135 meq/L 136-145 Below low normal [facility] ([facility]) Creatinine For GFR 0.76 mg/dL 0.55-1.30 Normal (applies to non -numeric results) [facility] ([facility]) Glomerular Filtration Rate Laboratory test result Normal (applies to non- numeric results) [facility] ([facility]) <content>Units are mL/min/1.73 m2</content>
<content></content>
<content>Chronic Kidney Disease Staging per NKF:</content>
<content></content>
<content>Stage I & II GFR >=60 Normal to Mildly Decreased</content>
<content>Stage III GFR 30- 59 Moderately Decreased</content>
<content>Stage IV GFR 15-29 Severely Decreased</content>
<content>Stage V GFR <15 Very Little GFR Left</content>
<content>ESRD GFR <15 on PROJECT DRILLING ENGINEER</content>
<content></content> Potassium Serum 4.1 meq/L 3.5-5.1 Normal (applies to non-numeric results) [facility] ([facility]) Chloride Level 102 meq/L 98-107 Normal (applies to non-numeric r esults) [facility] ([facility]) Carbon Dioxide Level 29 meq/L 21-32 Normal (applies to non-num meño results) [facility] ([facility]) Calcium Level 9.0 mg/dL 8.5-10.1 Normal (applies to non-numeric re sults) [facility] ([facility]) Anion Gap 4 meq/L 8-16 Below low normal [facility] ( [facility]) Alt/SGPT 22 U/L 12-78 Normal (applies to non-numeric resul ts) [facility] ([facility]) Ast/Sgot 13 U/L 7-37 Normal (applies to non-numeric resul ts) [facility] ([facility]) Alkaline Phosphatase 65 U/L 45-117 Normal (applies to non-num meño results) [facility] ([facility]) Bilirubin,Total 0.7 mg/dL 0.2-1.0 Normal (applies to non-numeric results) [facility] ([facility]) Total Protein 7.5 GM/DL 6.4-8.2 Normal (applies to non-numeric re sults) [facility] ([facility]) Albumin/Globulin Ratio 1.0 1.2-2.2 Below low normal [facility] Albumin 3.7 GM/DL 3.2-5.2 Normal (applies to non-numeric resul ts) [facility] ([facility]) ID Date Data Source [id number] 11/01/2020 11:00:00 AM EST [facility] Name Value Range Interpretation Code Description Data Diane rce(s) Supporting Document(s) SARS coronavirus 2 RNA Not Detected [facility] [place] This lab was ordered by [facility] and reported by [facility]. ID Date Data Source [id number] 10/21/2020 01:22:00 PM EST [facility] ([facility]) Name Value Range Interpretation Code Description Data Diane rce(s) Supporting Document(s) Calcidiol [Mass/volume] in Serum or Plasma 25.3 ng/mL 30.0- 100.0 Below low normal [facility] ([facility]) ID Date Data Source [id number] 10/21/2020 01:22:00 PM EST [facility] ([facility]) Name Value Range Interpretation Code Description Data Diane rce(s) Supporting Document(s) Glucose, Fasting 98 mg/dL 70-100 Normal (applies to non-numeric results) [facility] Blood Urea Nitrogen 11 mg/dL 7-18 Normal (applies to non-nume young results) [facility] ([facility]) Creatinine For GFR 0.90 mg/dL 0.55-1.30 Normal (applies to non -numeric results) [facility] ([facility]) Glomerular Filtration Rate Laboratory test result Normal (applies to non- numeric results) [facility] ([facility]) <content>Units are mL/min/1.73 m2</content>
<content></content>
<content>Chronic Kidney Disease Staging per NKF:</content>
<content></content>
<content>Stage I & II GFR >=60 Normal to Mildly Decreased</content>
<content>Stage III GFR 30- 59 Moderately Decreased</content>
<content>Stage IV GFR 15-29 Severely Decreased</content>
<content>Stage V GFR <15 Very Little GFR Left</content>
<content>ESRD GFR <15 on PROJECT DRILLING ENGINEER</content>
<content></content> Sodium Level 139 meq/L 136-145 Normal (applies to non-numeric res ults) [facility] ([facility]) Potassium Serum 4.0 meq/L 3.5-5.1 Normal (applies to non-numeric results) [facility] ([facility]) Chloride Level 104 meq/L 98-107 Normal (applies to non-numeric r esults) [facility] ([facility]) Carbon Dioxide Level 32 meq/L 21-32 Normal (applies to non-num meño results) [facility] ([facility]) Calcium Level 9.2 mg/dL 8.5-10.1 Normal (applies to non-numeric re sults) [facility] ([facility]) Anion Gap 3 meq/L 8-16 Below low normal [facility] ( [facility]) ID Date Data Source [id number] 09/18/2020 12:00:00 PM EST [facility] Name Value Range Interpretation Code Description Data Diane rce(s) Supporting Document(s) SARS coronavirus 2 RNA [facility] This lab was ordered by [facility] and reported by [facility]. ID Date Data Source [id number] 08/07/2020 12:00:00 AM EST [facility]logy Imaging ART [employer]you[employer] Patient Name: [id number], [address] [facility] [place] [facility]1970[place] [place] [place] [address] Date of Exam: 08/07/2020#: Fax: [id number] : MAMMO SCREENING WITH CADCLINICAL INFORMATION: Screening.Based [...] was read with the assistance of [employer], an FDAapproved computer aided detection system for [...] rce(s) Supporting Document(s) ID Date Data Source [id number] 07/16/2020 03:06:00 PM EDT [facility] Name Value Range Interpretation Code Description Data Diane rce(s) Supporting Document(s) Free T4 0.90 ng/dL 0.76-1.46 Normal (applies to non-numeric resul ts) [facility] ([facility]) Thyroid Stimulating Hormone 3.130 uIU/ML 0.358-3.740 Norm al (applies to non- numeric results) [facility] ([facility]) ID Date Data Source [id number] 07/16/2020 03:06:00 PM EDT [facility]) Name Value Range Interpretation Code Description Data Diane rce(s) Supporting Document(s) Triglycerides Level 71 mg/dL Normal (applies to non-nume young results) [facility] ([facility]) Cholesterol Level 171 mg/dL Normal (applies to non-numeri c results) [facility] ([facility]) Non-HDL-C 127 mg/dL Normal (applies to non-numeric resul ts) [facility] ([facility]) HDL Cholesterol 44 mg/dL Normal (applies to non-numeric results) [facility] ([facility]) LDL Cholesterol 113 mg/dL Above high normal [facility] ([facility]) Cholesterol Risk Ratio 3.886 Normal (applies to non-n umeric results) [facility] ([facility]) ID Date Data Source [id number] 07/16/2020 03:06:00 PM EDT [facility] ([facility]) Name Value Range Interpretation Code Description Data Diane rce(s) Supporting Document(s) Glucose, Fasting 81 mg/dL 70-100 Normal (applies to non-numeric results) [facility] ([facility]) Creatinine For GFR 0.86 mg/dL 0.55-1.30 Normal (applies to non -numeric results) [facility] ([facility]) Blood Urea Nitrogen 13 mg/dL 7-18 Normal (applies to non-nume young results) [facility] ([facility]) Glomerular Filtration Rate Laboratory test result Normal (applies to non- numeric results) [facility] ([facility]) <content>Units are mL/min/1.73 m2</content>
<content></content>
<content>Chronic Kidney Disease Staging per NKF:</content>
<content></content>
<content>Stage I & II GFR >=60 Normal to Mildly Decreased</content>
<content>Stage III GFR 30- 59 Moderately Decreased</content>
<content>Stage IV GFR 15-29 Severely Decreased</content>
<content>Stage V GFR <15 Very Little GFR Left</content>
<content>ESRD GFR <15 on PROJECT DRILLING ENGINEER</content>
<content></content> Potassium Serum 3.7 meq/L 3.5-5.1 Normal (applies to non-numeric results) [facility] ([facility]) Chloride Level 101 meq/L 98-107 Normal (applies to non-numeric r esults) [facility] ([facility]) Sodium Level 136 meq/L 136-145 Normal (applies to non-numeric res ults) [facility] ([facility]) Calcium Level 9.9 mg/dL 8.5-10.1 Normal (applies to non-numeric re sults) [facility] ([facility]) Anion Gap 4 meq/L 8-16 Below low normal [facility] Carbon Dioxide Level 31 meq/L 21-32 Normal (applies to non-num meño results) [facility] ([facility]) Alt/SGPT 25 U/L 12-78 Normal (applies to non-numeric resul ts) [facility] ([facility]) Alkaline Phosphatase 73 U/L 45-117 Normal (applies to non-num meño results) [facility] ([facility]) Ast/Sgot 22 U/L 7-37 Normal (applies to non-numeric resul ts) [facility] ([facility]) Total Protein 7.8 GM/DL 6.4-8.2 Normal (applies to non-numeric re sults) [facility] ([facility]) Albumin 3.7 GM/DL 3.2-5.2 Normal (applies to non-numeric resul ts) [facility] ([facility]) Bilirubin,Total 0.6 mg/dL 0.2-1.0 Normal (applies to non-numeric results) [facility] ([facility]) Albumin/Globulin Ratio 0.9 1.2-2.2 Below low normal [facility] ([facility]) ID Date Data Source [id number] 07/16/2020 03:06:00 PM EDT [facility] ([facility]) Name Value Range Interpretation Code Description Data Diane rce(s) Supporting Document(s) White Blood Count 7.3 10 4.0-10.0 Normal (applies to non-numeri c results) [facility] ([facility]) Hematocrit 38.4 % 36.0-47.0 Normal (applies to non-numeric resul ts) [facility] ([facility]) Red Blood Count 4.28 10 4.00-5.40 Normal (applies to non-numeric results) [facility] ([facility]) Hemoglobin 12.4 g/dL 12.0-15.5 Normal (applies to non-numeric resul ts) [facility] ([facility]) Mean Corpuscular HGB Conc 32.3 g/dL 32.0-36.5 Normal (applies to non-numeric results) [facility] ([facility]) Mean Corpuscular Volume 89.7 fl 80.0-96.0 Normal ( applies to non-numeric results) [facility] ([facility]) Mean Corpuscular Hemoglobin 29.0 pg 27.0-33.0 Norm al (applies to non-numeric results) [facility] ([facility]) Platelet Count, Automated 376 10 150-450 Normal (applies to non-numeric results) [facility] ([facility]) Red Cell Distribution Width 12.8 % 11.5-14.5 Norm al (applies to non-numeric results) [facility] ([facility]) Neutrophils % 45.9 % 36.0-66.0 Normal (applies to non-numeric re sults) [facility] ([facility]) [place] % 8.5 % 0.0-5.0 Above high normal [facility] ([facility]) Lymph % 41.3 % 24.0-44.0 Normal (applies to non-numeric resul ts) [facility] ([facility]) Eos % 3.3 % 0.0-3.0 Above high normal [facility] ([facility]) Nucleated Red Blood Cell % 0.0 % 0-0 Normal (applies to n on-numeric results) [facility] ([facility]) Immature Granulocyte % 0.3 % 0-3.0 Normal (applies to non-n umeric results) [facility] ([facility]) Baso % 0.7 % 0.0-1.0 Normal (applies to non-numeric resul ts) [facility] ([facility]) [place] # 0.6 10 0.0-0.8 Normal (applies to non-numeric resul ts) [facility] ([facility]) Lymph # 3.0 10 1.5-5.0 Normal (applies to non-numeric resul ts) [facility] ([facility]) Neutrophils # 3.4 10 1.5-8.5 Normal (applies to non-numeric re sults) [facility] ([facility]) Eos # 0.2 10 0.0-0.5 Normal (applies to non-numeric resul ts) [facility] ([facility]) Baso # 0.1 10 0.0-0.2 Normal (applies to non-numeric resul ts) [facility] ([facility]) Procedure Social History Code Duration Value Status Description Data Source(s ) Smoking 04/27/2021 12:00:00 AM EDT Patient has never smoked co mpleted Patient has never smoked [facility] ([facility]) Vital Signs ID Date Data Source UNK Name Value Range Interpretation Code Description Data Source(s) Body weight 189.00 [lb_av] 189.00 [lb_av] [facility] T ([facility]) Respiratory rate 18 /min 18 /min [facility] ( [facility]) Body height 63.7 [in_i] 63.7 [in_i] [facility] ([facility]) 5'3.70" Body weight 188.25 [lb_av] 188.25 [lb_av] [facility] ([facility]) Body mass index (BMI) [Ratio] 32.6 kg/m2 32.6 k g/m2 [facility] ([facility]) Oxygen saturation in Arterial blood by Pulse oximetry 98 % 98 % [facility] ([facility]) [place] body weight 115 [lb_av] 115 [lb_av] [facility] T ([facility]) Systolic blood pressure 134 mm[Hg] 134 mm[Hg] M [facility] ([facility]) Diastolic blood pressure 78 mm[Hg] 78 mm[Hg] [facility] ([facility]) Heart rate 92 /min 92 /min [facility] ([facility]) Respiratory rate 18 /min 18 /min [facility] ( [facility]) Body temperature 98.2 [degF] 98.2 [degF] [facility] ([facility]) Body height 63.7 [in_i] 63.7 [in_i] [facility] ([facility]) 5'3.70" Respiratory rate 20 /min 20 /min [facility] ( [facility]) Body mass index (BMI) [Ratio] 33.6 kg/m2 33.6 k g/m2 [facility] ([facility]) Body temperature 97.8 [degF] 97.8 [degF] [facility] ([facility]) Diastolic blood pressure 82 mm[Hg] 82 mm[Hg] [facility] ([facility]) Body weight 194.00 [lb_av] 194.00 [lb_av] [facility] T ([facility]) Heart rate 69 /min 69 /min [facility] ([facility]) Systolic blood pressure 142 mm[Hg] 142 mm[Hg] M [facility] ([facility]) Oxygen saturation in Arterial blood by Pulse oximetry 98 % 98 % [facility] ([facility]) [place] body weight 115 [lb_av] 115 [lb_av] [facility] T ([facility]) Body height 63.7 [in_i] 63.7 [in_i] [facility] ([facility]) 5'3.70" Body weight 191.00 [lb_av] 191.00 [lb_av] [facility] T ([facility]) Body mass index (BMI) [Ratio] 33.1 kg/m2 33.1 k g/m2 [facility] ([facility]) Heart rate 75 /min 75 /min [facility] ([facility]) Respiratory rate 18 /min 18 /min [facility] ( [facility]) Body temperature 98.4 [degF] 98.4 [degF] [facility] ([facility]) Oxygen saturation in Arterial blood by Pulse oximetry 99 % 99 % [facility] ([facility]) [place] body weight 115 [lb_av] 115 [lb_av] [facility] T ([facility]) Systolic blood pressure 124 mm[Hg] 124 mm[Hg] [facility] ([facility]) Diastolic blood pressure 76 mm[Hg] 76 mm[Hg] [facility] ([facility]) Heart rate 73 /min 73 /min [facility] ([facility]) Systolic blood pressure 135 mm[Hg] 135 mm[Hg] [facility] ([facility]) Diastolic blood pressure 87 mm[Hg] 87 mm[Hg] [facility] ([facility]) Body temperature 98.1 [degF] 98.1 [degF] [facility] ([facility]) Body height 63.5 [in_i] 63.5 [in_i] [facility] ([facility]) 5'3.50" Body weight 193.00 [lb_av] 193.00 [lb_av] [facility] Body mass index (BMI) [Ratio] 33.6 kg/m2 33.6 k g/m2 [facility] ([facility]) [place] body weight 115 [lb_av] 115 [lb_av] [facility] Body weight 87.545 kg 87.545 kg [facility] ([facility]) Body surface area Derived from formula 1.92 m2 1.92 m2 [facility] ([facility]) Body mass index (BMI) [Ratio] 32.1 kg/m2 32.1 k g/m2 [facility] ([facility]) Heart rate 60 /min 60 /min [facility] ([facility]) Systolic blood pressure 120 mm[Hg] 120 mm[Hg] [facility] Respiratory rate 16 /min 16 /min [facility] Body temperature 97.6 [degF] 97.6 [degF] [facility] ([facility]) Oxygen saturation in Arterial blood by Pulse oximetry 100 % 100 % [facility] ([facility]) [place] body weight 115 [lb_av] 115 [lb_av] [facility] ([facility]) Diastolic blood pressure 80 mm[Hg] 80 mm[Hg] [facility] ([facility]) Body height 63.7 [in_i] 63.7 [in_i] [facility] ([facility]) 5'3.70" Body weight 185.50 [lb_av] 185.50 [lb_av] [facility] ([facility])
== END 2021-08-30 14:49 | disposition home or self-care (01) ==
LOC: M ED 12:57
DX: S05.01XA Injury of conjunctiva and corneal abrasion without foreign body, right eye, initial encounter (principal); Y92.9 Unspecified place or not applicable; Y93.9 Activity, unspecified; Y99.9 Unspecified external cause status; Z91.040 Latex allergy status; Z97.3 Presence of spectacles and contact lenses

== ENCOUNTER → 2021-10-26 | Outpatient (CLI) | payer OTHER ==
[~2021-10-26] MED LIST changes: +ERYT5OIN25 OD; +OCUF0.25 OD
[2021-10-26 16:40] LABS: BASO # 0.1 10^3/uL (0.0-0.2); BASO % 0.8 % (0.0-1.0); EOS # 0.2 10^3/uL (0.0-0.5); EOS % 2.1 % (0.0-3.0); HEMATOCRIT 39.4 % (36.0-47.0); HEMOGLOBIN 12.9 g/dl (12.0-15.5); LYMPH # 3.2 10^3/uL (1.5-5.0); LYMPH % 42.2 % (24.0-44.0); MEAN CORPUSCULAR HEMOGLOBIN 29.3 pg (27.0-33.0); MEAN CORPUSCULAR HGB CONC 32.7 g/dl (32.0-36.5); MEAN CORPUSCULAR VOLUME 89.3 fl (80.0-96.0); MONO # 0.6 10^3/uL (0.0-0.8); NEUTROPHILS # 3.5 10^3/uL (1.5-8.5); NEUTROPHILS % 46.6 % (36.0-66.0); PLATELET COUNT, AUTOMATED 349 10^3/uL (150-450); RED BLOOD COUNT 4.41 10^6/uL (4.00-5.40); WHITE BLOOD COUNT 7.5 10^3/uL (4.0-10.0)
[2021-10-26 17:27] LABS: ALBUMIN 3.8 GM/DL (3.2-5.2); ALT/SGPT 22 U/L (12-78); BILIRUBIN,TOTAL 0.5 MG/DL (0.2-1.0); BLOOD UREA NITROGEN 7 MG/DL (7-18); CALCIUM LEVEL 9.3 MG/DL (8.5-10.1); CARBON DIOXIDE LEVEL 31 MEQ/L (21-32); CHLORIDE LEVEL 102 MEQ/L (98-107); CHOLESTEROL LEVEL 160 MG/DL (<200); CREATININE FOR GFR 0.81 MG/DL (0.55-1.30); GLOMERULAR FILTRATION RATE > 60.0 (>51); GLUCOSE, FASTING 80 MG/DL (70-100); HDL CHOLESTEROL 40 MG/DL (>40); LDL CHOLESTEROL 108 MG/DL (<100); NON-HDL-C 120 MG/DL; POTASSIUM SERUM 3.5 MEQ/L (3.5-5.1); SODIUM LEVEL 137 MEQ/L (136-145); TOTAL PROTEIN 8.4 GM/DL (6.4-8.2); TRIGLYCERIDES LEVEL 59 MG/DL (<150)
== END ==
LOC: M LAB 15:44
PROVIDERS: ATTEND Physician Assistant
DX: Z00.00 Encounter for general adult medical examination without abnormal findings (principal); I10 Essential (primary) hypertension; D64.9 Anemia, unspecified

== ENCOUNTER → 2022-01-26 | Outpatient (CLI) | payer OTHER ==
[2022-01-26 16:30] LABS: BASO # 0.1 10^3/uL (0.0-0.2); BASO % 0.8 % (0.0-1.0); EOS # 0.1 10^3/uL (0.0-0.5); EOS % 1.7 % (0.0-3.0); HEMATOCRIT 38.3 % (36.0-47.0); HEMOGLOBIN 12.7 g/dl (12.0-15.5); LYMPH # 3.6 10^3/uL (1.5-5.0); LYMPH % 50.6 % (24.0-44.0); MEAN CORPUSCULAR HGB CONC 33.2 g/dl (32.0-36.5); MEAN CORPUSCULAR VOLUME 90.3 fl (80.0-96.0); MONO # 0.5 10^3/uL (0.0-0.8); MONO % 7.5 % (2.0-8.0); NEUTROPHILS # 2.8 10^3/uL (1.5-8.5); NEUTROPHILS % 39.3 % (36.0-66.0); PLATELET COUNT, AUTOMATED 381 10^3/uL (150-450); RED BLOOD COUNT 4.24 10^6/uL (4.00-5.40); WHITE BLOOD COUNT 7.1 10^3/uL (4.0-10.0)
[2022-01-26 17:06] LABS: ALBUMIN 3.8 GM/DL (3.2-5.2); ALT/SGPT 25 U/L (12-78); BILIRUBIN,TOTAL 0.5 MG/DL (0.2-1.0); BLOOD UREA NITROGEN 12 MG/DL (7-18); CALCIUM LEVEL 9.4 MG/DL (8.5-10.1); CARBON DIOXIDE LEVEL 33 MEQ/L (21-32); CHLORIDE LEVEL 100 MEQ/L (98-107); CREATININE FOR GFR 0.83 MG/DL (0.55-1.30); FERRITIN 122 NG/ML (8-252); GLOMERULAR FILTRATION RATE > 60.0 (>51); GLUCOSE, FASTING 87 MG/DL (70-100); IRON (FE) 77 UG/DL (50-170); PERCENT SATURATION 17.7 % (13.2-45.0); POTASSIUM SERUM 3.1 MEQ/L (3.5-5.1); SODIUM LEVEL 138 MEQ/L (136-145); TOTAL IRON BINDING CAPACITY 434 UG/DL (250-450); TOTAL PROTEIN 7.7 GM/DL (6.4-8.2)
[2022-01-26 17:09] LABS: TOTAL 25(OH) VITAMIN D 23.2 NG/ML (30.0-100.0)
== END ==
LOC: M LAB 15:39
PROVIDERS: ATTEND Family Medicine
DX: E55.9 Vitamin D deficiency, unspecified (principal); D64.9 Anemia, unspecified; I10 Essential (primary) hypertension

== ENCOUNTER → 2022-01-29 | Outpatient (CLI) | payer OTHER ==
[~2022-01-29] MED LIST changes: +BACT800T5 PO; +CHLO125TA PO
[2022-01-29 15:58] LABS: C REACTIVE PROTEIN QUANTITATIV 0.93 MG/DL (0.00-0.30); RHEUMATOID FACTOR QUANT < 10.0 IU/ML (<15.0)
[2022-02-02 00:07] LABS: ANA (HEP2) Negative (.); CYCLIC CITRULLINATED PEPTIDE < 1 units (0-19)
== END ==
LOC: M LAB 15:11
PROVIDERS: ATTEND Nurse Practitioner Adult Health
DX: R52 Pain, unspecified (principal)

== ENCOUNTER 2022-01-31 11:59 | Emergency (ER) | payer OTHER ==
[~2022-01-31] VITALS: Ht 160 cm; Wt 86.2 kg
[~2022-01-31 11:59] MED LIST changes: -BACT800T5 PO; -CHLO125TA PO
[2022-01-31] MEDS ORDERED: CHLO125TA PO (12:04)
[2022-01-31] MEDS ORDERED: BACT800T5 PO (13:51)
[2022-01-31 14:05] VITALS: BP 137/78
== END 2022-01-31 14:11 | disposition home or self-care (01) ==
LOC: M ED 11:59
DX: N39.0 Urinary tract infection, site not specified (principal); E66.9 Obesity, unspecified; I10 Essential (primary) hypertension; Z79.899 Other long term (current) drug therapy; Z91.040 Latex allergy status

== ENCOUNTER → 2022-02-25 | Outpatient (CLI) | payer OTHER ==
[~2022-02-25] MED LIST changes: +BACT800T5 PO; +CHLO125TA PO
== END ==
LOC: M WHC 14:51
PROVIDERS: ATTEND Family Medicine
DX: Z12.31 Encounter for screening mammogram for malignant neoplasm of breast (principal); Z80.3 Family history of malignant neoplasm of breast